=== PATIENT | male | born 1960 | race Hispanic/Latino ===

== ENCOUNTER 2018-08-21 15:44 | Emergency (ER) | payer MEDICARE ==
[~2018-08-21] VITALS: Ht 167.6 cm; Wt 64.0 kg
--- OUTSIDE RECORDS SUMMARY | 2018-08-21 15:48 | XMS REPORT | Clinical Summary ---
Author Author [facility] Address Unknown Phone Unavailable Care Team Providers Care Assurance Associate Name Role Phone Zhao Sanabria PCP Unavailable Ab Richey Unavailable Allergies Comments Active Allergy Reactions Severity Noted Date IV OPTIRAY 320 Iodinated Contrast- Oral Rash Low 10/26/2017 And Iv Dye PT developed hives following the administration of IV Contrast Optiray 320 Ioversol Hives Low 02/28/2017 Medications End Date Status Medication Sig Dispensed Refills Start Date Active SITAGLIPTIN PHOSPHATE Take 100 mg 0 (JANUVIA ORAL) by mouth daily . Active PREGABALIN (LYRICA ORAL) Take 50 mg by 0 mouth 3 (three) times daily . Active tamsulosin (FLOMAX) 0.4 Take 1 60 capsule 0 11/09/ mg Cp24 24 hr capsule capsule (0.4 7 mg total) by mouth 2 (two) times daily. Active metoprolol (LOPRESSOR) Take 1 tablet 0 100 MG tablet (100 mg 9 total) by mouth 2 (two) times daily Hold for sbp < 110 or HR < 55. Active lisinopril Take 10 mg by 0 (PRINIVIL,ZESTRIL) 10 MG mouth daily. tablet 07/24/2019 Active atorvastatin (LIPITOR) 80 Take 1 tablet 60 tablet 0 07/24/201 MG tablet (80 mg total) 9 by mouth nightly. 07/07/2018 Discontinued glyBURIDE-metFORMIN Take 2 0 (GLUCOVANCE) 5-500 mg per tablets by tablet mouth 2 (two) times daily with breakfast and dinner . 07/07/2018 Discontinued ticagrelor (BRILINTA) 90 Take 1 tablet 60 tablet 0 11/09/201 mg Tab tablet (90 mg total) 7 by mouth 2 (two) times daily. 11/09/2017 metoprolol (LOPRESSOR) Take 1 tablet 60 tablet 0 100 MG tablet (100 mg 7 total) by mouth 2 (two) times daily. 11/09/2017 isosorbide mononitrate Take 1 tablet 60 tablet 0 (IMDUR) 60 MG 24 hr (60 mg total) 7 tablet by mouth daily. 11/09/2017 gabapentin (NEURONTIN) Take 1 60 capsule 1 300 MG capsule capsule (300 7 mg total) by mouth nightly. 11/09/2017 furosemide (LASIX) 20 MG Take 1 tablet 20 tablet 0 tablet (20 mg total) 7 by mouth daily. 07/19/2018 Discontinued insulin glargine (LANTUS) Inject 5 0 100 unit/mL injection Units subcutaneousl y 2 (two) times daily Use as directed . 07/07/2018 Discontinued metoprolol (LOPRESSOR) Take 100 mg 0 100 MG tablet by mouth 2 (two) times daily. 07/07/2018 Discontinued lisinopril Take 10 mg by 0 (PRINIVIL,ZESTRIL) 10 MG mouth 2 (two) tablet times daily. 07/19/2018 Discontinued pantoprazole (PROTONIX) Take 40 mg by 0 40 MG tablet mouth 2 (two) times daily. 07/19/2018 Discontinued isosorbide mononitrate Take 60 mg by 0 (IMDUR) 60 MG 24 hr mouth daily. tablet 07/15/2018 levoFLOXacin (LEVAQUIN) Take 1 tablet 7 tablet 0 500 MG tablet (500 mg 9 total) by mouth daily for 7 days. 07/31/2018 nitrofurantoin, Take 1 14 capsule 0 macrocrystal-monohydrate, capsule (100 9 (MACROBID) 100 MG capsule mg total) by mouth 2 (two) times daily for 7 days. 08/12/2018 levoFLOXacin (LEVAQUIN) Take 1 tablet 10 tablet 0 250 MG tablet (250 mg 9 total) by mouth daily for 10 days. Active Problems Problem Noted Date Pneumonia 07/21/2018 Generalized weakness 07/18/2018 Acute renal failure superimposed on stage 3 chronic kidney disease 07/18/2018 Demand ischemia 07/18/2018 Acute diarrhea 07/18/2018 Sepsis 07/18/2018 Hypoglycemia 06/29/2018 Stage 3 chronic kidney disease 06/29/2018 Urinary retention 10/30/2016 History of coronary artery disease 10/30/2016 s/p Aogram abd b/l bolus: Abd Ao: NOD, RLA 80% prox SFA, 100% CHANDNI, tandem 03/27/2016 90% stenoses tib-peroneal, 1V runoff, LLE: 100% distal pop, peroneal, and CHANDNI, 80% distal PT, 1 V runoff, 03/27/16 Overview: RLE: 80% proximal SFA and non obstructive plaque in distal SFA and popliteal, 100% anterior tibial artery, tandem 90% stenoses tib-peroneal, 1 vessel runoff. LLE: mild plaquing proximally, 100% distal popliteal, peroneal and anterior tibialis, 80% distal posterior tibialis, 1 vessel runoff . Type 2 diabetes mellitus with hyperlipidemia 03/22/2016 Essential hypertension 03/22/2016 Diabetic peripheral neuropathy 03/22/2016 History of rectal cancer 03/22/2016 Resolved Problems Problem Noted Date Resolved Date Hyperkalemia 06/29/2018 07/18/2018 Anemia, unspecified type 06/28/2018 07/18/2018 Gangrene of foot 11/23/2016 07/18/2018 Angina at rest 11/04/2016 07/18/2018 Right foot infection 10/30/2016 07/18/2018 Postoperative anemia 10/30/2016 07/18/2018 Arterial occlusion 03/22/2016 07/18/2018 Skin ulcer of great toe, left, limited to breakdown of skin 03/22/2016 07/18/2018 Malignant neoplasm of rectum 11/24/2014 07/18/2018 Rectal cancer 10/12/2014 07/18/2018 Encounters Care Team Description Date Type Specialty Zana Mcgrath MD Visit for wound check (Primary Dx); Malfunction of nephrostomy tube (HCC); Hypertension, unspecified type 08/02/2018 Emergency Emergency Medicine 08/02/2018 Travel Beverley Muñoz MD Gonzalez, Adriana, MD Rehman, Javed, MD Generalized weakness (Primary Dx); Acute renal failure with acute tubular necrosis superimposed on chronic kidney disease, unspecified CKD stage (HCC); Elevated troponin I level; Acute diarrhea; Type 2 diabetes mellitus with hyperlipidemia (HCC); Essential hypertension; Diabetic peripheral neuropathy (HCC); History of rectal cancer; s/p Aogram abd b/l bolus: Abd Ao: NOD, RLA 80% prox SFA, 100% CHANDNI, tandem 90% stenoses tib-peroneal, 1V runoff, LLE: 100% distal pop, peroneal, and CHANDNI, 80% distal PT, 1 V runoff, 03/27/16 07/18/2018 Hospital Cardiology - Encounter 07/24/2018 07/18/2018 Travel Jackson Matthew MD Schempp, MD Waldo Bolden Javed, MD Patel, Morgan Chahal, Mylene Garcia MD Hypoglycemia (Primary Dx); Anemia, unspecified type; FADI (acute kidney injury) (HCC); Hyperkalemia; Pressure injury of skin of sacral region, unspecified injury stage 06/28/2018 Hospital Intensive Care - Encounter 07/07/2018 06/28/2018 Orders Only General Internal Medicine 06/28/2018 Travel Marcelina Morel MD Malignant neoplasm of rectum (HCC) (Primary Dx) 10/26/2017 Orders Only Lab Marcelina Morel MD Malignant neoplasm of rectum (HCC) 10/26/2017 Hospital Radiology Encounter Marcelina Morel MD Malignant neoplasm of rectum (HCC) (Primary Dx) 10/24/2017 Outside Orders Central Scheduling after 08/20/2017 Family History Medical History Relation Name Comments Diabetes Mother Hypertension Mother Stroke Mother Relation Name Status Comments Father Mother Social History Date Tobacco Use Types Packs/Day Years Used Quit: 04/09/1979 Former Smoker 0.5 5 Smokeless Tobacco: Never Used Comments: quit smoking 5 yrs ago. Alcohol Use Drinks/Week oz/Week Comments No Sex Assigned at Date Recorded Not on file Industry Job Start Date Occupation Not on file Not on file Not on file Travel End Travel History Travel Start No recent travel history available. Last Filed Vital Signs Time Taken Vital Sign Reading 08/02/2018 12:27 PM CDT Blood Pressure 121/76 08/02/2018 12:27 PM CDT Pulse 96 08/02/2018 12:27 PM CDT Temperature 36.8 C (98.3 F) 08/02/2018 12:27 PM CDT Respiratory Rate 19 08/02/2018 12:27 PM CDT Oxygen Saturation 98% - Inhaled Oxygen - Concentration 08/02/2018 12:27 PM CDT Weight 68 kg (150 lb) 08/02/2018 12:27 PM CDT Height 167.6 cm (5' 6") 08/02/2018 12:27 PM CDT Body Mass Index 24.21 Plan of Treatment Not on file Implants Device Identifier Shelf Expiration Date Model / Serial / Lot Implanted Type Area Manufactur er 08/06/2017 [id number] / / [id number] Device Clsr Angio-Seal Vip 6fr Cardiovasc Left: Groin ST JOSE [id number] - [id number] ular MED:CARDIA Implanted: Qty: 1 on 10/31/2016 by Magali Apodaca MD 01/06/2017 [id number] / / [id number] Adhesion Barrier,Seprafilm 5x6 - Cement/Terrance N/A: Abdomen GENZYME [id number] ler/Adhesi SURGICAL Implanted: Qty: 2 on 11/24/2014 by ve Bradford Luna MD 09/06/2016 [id number] / / [id number] Hemostat Vitagel Agent Surg - Cement/[place]errance N/A: Abdomen [place] [id number] ler/Adhesi Orthopaedi Implanted: Qty: 1 on 04/13/2015 by Bradford Louis MD 02/14/2017 [id number] / / [id number] Promus Premier Stents-Cor Right: Coronary [place] Implanted: Qty: 1 on 03/29/2016 by Lida Chang MD 02/20/2017 [id number] / / [id number] Promus Premier Stents-Cor N/A: Coronary [place] Implanted: Qty: 1 on 03/29/2016 by Lida Chang MD 02/09/2017 [id number] / / [id number] Promus Premier Stents-Per Right: Coronary [place] Implanted: Qty: 1 on 03/29/2016 by Lida Link MD 12/06/2017 [id number] / / [id number] [employer] Promus Premier Stents-Per [place] Implanted: Qty: 1 on 10/31/2016 by Magali Abrams MD 09/07/2021 [id number] / / [id number] Epifix Injectable 160mg [id number] - Tissue MIMEDX [id number] [employer]raft[employer] Implanted: Qty: 1 on 11/23/2016 by Satish Dupree MD 09/07/2021 [id number] / / [id number] Epifix Injectable 160mg [id number]-5200 - Tissue MIMEDX [id number] [employer]raft[employer] Implanted: Qty: 1 on 11/23/2016 by Satish Dupree MD Procedures Comments Procedure Name Priority Date/Time Associated Diagnosis CREATININE, BODY FLUID DESHAWN 08/02/2018 6:09 PM CDT URINALYSIS W/ REFLEX STAT 08/02/2018 URINE CULTURE 5:01 PM CDT URINE CULTURE STAT 08/02/2018 5:01 PM CDT CBC W/PLT COUNT & AUTO STAT 08/02/2018 DIFFERENTIAL 4:09 PM CDT BASIC METABOLIC PANEL (7) STAT 08/02/2018 4:09 PM CDT CBC W/PLT COUNT & AUTO STAT 08/02/2018 DIFFERENTIAL 4:[address] ABDOMEN/PELVIS WITHOUT STAT 08/02/2018 IV CONTRAST 3:54 PM CDT RHYTHM STRIP - SCAN 07/25/2018 1:31 PM CDT REPORT OF PROCEDURE - 07/25/2018 ENDOSCOPY SCAN 1:31 PM CDT POCT-GLUCOSE METER Routine 07/24/2018 7:36 AM CDT POCT-GLUCOSE METER Routine 07/23/2018 11:52 PM CDT POCT-GLUCOSE METER Routine 07/23/2018 6:01 PM CDT POCT-GLUCOSE METER Routine 07/23/2018 11:59 AM CDT POCT-GLUCOSE METER Routine 07/23/2018 8:04 AM CDT POCT-GLUCOSE METER Routine 07/22/2018 11:07 PM CDT TRANSFUSION SERVICE 07/22/2018 REPORT - SCAN 6:00 PM CDT POCT-GLUCOSE METER Routine 07/22/2018 5:27 PM CDT POCT-GLUCOSE METER Routine 07/22/2018 12:20 PM CDT POCT-GLUCOSE METER Routine 07/22/2018 8:18 AM CDT CBC W/PLT COUNT & AUTO Routine 07/22/2018 DIFFERENTIAL 4:03 AM CDT MAGNESIUM Routine 07/22/2018 4:03 AM CDT CBC W/PLT COUNT & AUTO Routine 07/22/2018 DIFFERENTIAL 4:03 AM CDT BASIC METABOLIC PANEL (7) Routine 07/22/2018 4:03 AM CDT PREPARE LEUKO-REDUCED RBC Routine 07/21/2018 11:54 PM CDT POCT-GLUCOSE METER Routine 07/21/2018 9:23 PM CDT TRANSFUSION SERVICE 07/21/2018 REPORT - SCAN 6:00 PM CDT POCT-GLUCOSE METER Routine 07/21/2018 4:58 PM CDT POCT-GLUCOSE METER Routine 07/21/2018 12:45 PM CDT POCT-GLUCOSE METER Routine 07/21/2018 10:20 AM CDT CBC W/PLT COUNT & AUTO Routine 07/21/2018 DIFFERENTIAL 4:22 AM CDT BASIC METABOLIC PANEL (7) Routine 07/21/2018 4:22 AM CDT CBC W/PLT COUNT & AUTO Routine 07/21/2018 DIFFERENTIAL 4:22 AM CDT MAGNESIUM Routine 07/21/2018 4:22 AM CDT TRANSFUSE LEUKO-REDUCED Routine 07/21/2018 RED BLOOD CELLS 2:55 AM CDT POCT-GLUCOSE METER Routine 07/21/2018 12:25 AM CDT TRANSFUSE LEUKO-REDUCED Routine 07/20/2018 RED BLOOD CELLS 9:36 PM CDT POCT-GLUCOSE METER Routine 07/20/2018 5:51 PM CDT ABORH, MANUAL Routine 07/20/2018 12:30 PM CDT TYPE AND SCREEN, Routine 07/20/2018 AUTOMATED 12:30 PM CDT POCT-GLUCOSE METER Routine 07/20/2018 12:12 PM CDT POCT-GLUCOSE METER Routine 07/20/2018 7:57 AM CDT CBC W/PLT COUNT & AUTO Routine 07/20/2018 DIFFERENTIAL 1:30 AM CDT MAGNESIUM Routine 07/20/2018 1:30 AM CDT BASIC METABOLIC PANEL (7) Routine 07/20/2018 1:30 AM CDT TROPONIN I Routine 07/20/2018 1:30 AM CDT CBC W/PLT COUNT & AUTO Routine 07/20/2018 DIFFERENTIAL 1:30 AM CDT POCT-GLUCOSE METER Routine 07/19/2018 9:13 PM CDT POCT-GLUCOSE METER Routine 07/19/2018 6:56 PM CDT TROPONIN I Routine 07/19/2018 5:18 PM CDT POCT-GLUCOSE METER Routine 07/19/2018 2:29 PM CDT CBC W/PLT COUNT & AUTO Routine 07/19/2018 DIFFERENTIAL 5:48 AM CDT TROPONIN I Routine 07/19/2018 5:48 AM CDT LACTIC ACID, VENOUS Routine 07/19/2018 5:48 AM CDT HEPATIC FUNCTION PANEL Routine 07/19/2018 5:48 AM CDT CBC W/PLT COUNT & AUTO Routine 07/19/2018 DIFFERENTIAL 5:48 AM CDT MAGNESIUM Routine 07/19/2018 5:48 AM CDT PT/APTT Routine 07/19/2018 5:48 AM CDT BASIC METABOLIC PANEL (7) Routine 07/19/2018 5:48 AM CDT POCT-GLUCOSE METER Routine 07/19/2018 2:51 AM CDT TROPONIN I Routine 07/19/2018 12:50 AM CDT POCT-GLUCOSE METER Routine 07/19/2018 12:48 AM CDT POCT-GLUCOSE METER Routine 07/18/2018 10:34 PM CDT POCT-GLUCOSE METER Routine 07/18/2018 10:13 PM CDT URINALYSIS W/ REFLEX STAT 07/18/2018 URINE CULTURE 7:12 PM CDT URINE CULTURE STAT 07/18/2018 7:12 PM CDT POCT-GLUCOSE METER Routine 07/18/2018 5:26 PM CDT ECG 12-LEAD STAT 07/18/2018 5:23 PM CDT XR CHEST 1 VIEW STAT 07/18/2018 PORTABLE/BEDSIDE 5:10 PM CDT POCT-LACTIC ACID, VENOUS Routine 07/18/2018 4:53 PM CDT STOOL PATH CHARGE Routine 07/18/2018 4:44 PM CDT SHIGA TOXIN SCREEN Routine 07/18/2018 4:44 PM CDT OVA AND PARASITE STAT 07/18/2018 EXAMINATION 4:44 PM CDT C. DIFFICILE GDH TOXIN STAT 07/18/2018 4:44 PM CDT STOOL CULTURE + SHIGA STAT 07/18/2018 TOXIN 4:44 PM CDT RAPID INFLUENZA A&B STAT 07/18/2018 SCREEN 4:38 PM CDT BLOOD CULTURE STAT 07/18/2018 4:38 PM CDT RESPIRATORY PANEL SLHS STAT 07/18/2018 4:00 PM CDT BLOOD CULTURE STAT 07/18/2018 4:00 PM CDT CBC W/PLT COUNT & AUTO STAT 07/18/2018 DIFFERENTIAL 3:59 PM CDT CBC W/PLT COUNT & AUTO STAT 07/18/2018 DIFFERENTIAL 3:59 PM CDT PROTHROMBIN TIME/INR STAT 07/18/2018 3:59 PM CDT TROPONIN I STAT 07/18/2018 3:59 PM CDT HEPATIC FUNCTION PANEL STAT 07/18/2018 3:59 PM CDT BASIC METABOLIC PANEL (7) STAT 07/18/2018 3:59 PM CDT PROCALCITONIN STAT 07/18/2018 3:59 PM CDT POCT-GLUCOSE METER Routine 07/18/2018 3:50 PM CDT ED ECG INTERPRETATION Routine 07/18/2018 3:30 PM CDT POCT-GLUCOSE METER Routine 07/18/2018 3:20 PM CDT REPORT OF PROCEDURE - 07/12/2018 ENDOSCOPY SCAN 2:24 PM CDT RHYTHM STRIP - SCAN 07/09/2018 10:40 AM CDT POCT-GLUCOSE METER Routine 07/07/2018 12:16 PM CDT POCT-GLUCOSE METER Routine 07/07/2018 7:54 AM CDT CBC W/PLT COUNT & AUTO Routine 07/07/2018 DIFFERENTIAL 5:44 AM CDT CBC W/PLT COUNT & AUTO Routine 07/07/2018 DIFFERENTIAL 5:44 AM CDT MAGNESIUM Routine 07/07/2018 5:44 AM CDT BASIC METABOLIC PANEL (7) Routine 07/07/2018 5:44 AM CDT POCT-GLUCOSE METER Routine 07/06/2018 9:48 PM CDT POCT-GLUCOSE METER Routine 07/06/2018 5:53 PM CDT POCT-GLUCOSE METER Routine 07/06/2018 12:28 PM CDT RHYTHM STRIP - SCAN 07/06/2018 8:50 AM CDT CBC W/PLT COUNT & AUTO Routine 07/06/2018 DIFFERENTIAL 4:03 AM CDT CBC W/PLT COUNT & AUTO Routine 07/06/2018 DIFFERENTIAL 4:03 AM CDT MAGNESIUM Routine 07/06/2018 4:03 AM CDT BASIC METABOLIC PANEL (7) Routine 07/06/2018 4:03 AM CDT POCT-GLUCOSE METER Routine 07/05/2018 9:33 PM CDT HEMOGLOBIN AND HEMATOCRIT Routine 07/05/2018 8:02 PM CDT POCT-GLUCOSE METER Routine 07/05/2018 4:51 PM CDT POCT-GLUCOSE METER Routine 07/05/2018 12:24 PM CDT BLOOD CULTURE Routine 07/05/2018 11:51 AM CDT BLOOD CULTURE Routine 07/05/2018 11:44 AM CDT IR NEPHROSTOGRAM AND/OR DESHAWN 07/05/2018 URETEROGRAM THROUGH 10:12 AM CDT EXISTING ACCESS CBC W/PLT COUNT & AUTO Routine 07/05/2018 DIFFERENTIAL 4:21 AM CDT LACTIC ACID, VENOUS Routine 07/05/2018 4:21 AM CDT CBC W/PLT COUNT & AUTO Routine 07/05/2018 DIFFERENTIAL 4:21 AM CDT MAGNESIUM Routine 07/05/2018 4:21 AM CDT BASIC METABOLIC PANEL (7) Routine 07/05/2018 4:21 AM CDT POCT-GLUCOSE METER Routine 07/04/2018 9:26 PM CDT ECHOCARDIOGRAM REPORT - 07/04/2018 SCAN 9:13 PM CDT POCT-GLUCOSE METER Routine 07/04/2018 6:18 PM CDT TRANSFUSION SERVICE 07/04/2018 REPORT - SCAN 6:04 PM CDT TROPONIN I Routine 07/04/2018 11:46 AM CDT POCT-GLUCOSE METER Routine 07/04/2018 11:30 AM CDT POCT-GLUCOSE METER Routine 07/04/2018 8:14 AM CDT MAGNESIUM Routine 07/04/2018 8:01 AM CDT BASIC METABOLIC PANEL (7) Routine 07/04/2018 8:01 AM CDT TROPONIN I Routine 07/04/2018 5:04 AM CDT 2D ECHO W/ DOPPLER STAT 07/04/2018 (CW/PW/COLOR) 1:41 AM CDT CBC W/PLT COUNT & AUTO Routine 07/04/2018 DIFFERENTIAL 1:12 AM CDT LACTIC ACID, VENOUS STAT 07/04/2018 1:12 AM CDT CBC W/PLT COUNT & AUTO Routine 07/04/2018 DIFFERENTIAL 1:12 AM CDT MAGNESIUM Routine 07/04/2018 1:12 AM CDT BASIC METABOLIC PANEL (7) Routine 07/04/2018 1:12 AM CDT CBC W/PLT COUNT & AUTO STAT 07/04/2018 DIFFERENTIAL 12:32 AM CDT TROPONIN I STAT 07/04/2018 12:32 AM CDT CBC W/PLT COUNT & AUTO STAT 07/04/2018 DIFFERENTIAL 12:32 AM CDT MAGNESIUM STAT 07/04/2018 12:32 AM CDT BASIC METABOLIC PANEL (7) STAT 07/04/2018 12:32 AM CDT PROCALCITONIN STAT 07/04/2018 12:32 AM CDT LACTIC ACID, VENOUS STAT 07/04/2018 12:32 AM CDT URINALYSIS W/ REFLEX Routine 07/04/2018 URINE CULTURE 12:32 AM CDT URINE CULTURE Routine 07/04/2018 12:32 AM CDT XR CHEST 1 VIEW STAT 07/04/2018 PORTABLE/BEDSIDE 12:31 AM CDT ECG 12-LEAD Routine 07/04/2018 12:24 AM CDT ECG 12-LEAD Routine 07/04/2018 12:24 AM CDT Procedure Note - Interface, External Ris In - 07/04/2018 12:28 AM CDT Ventricula r Rate 119 BPM Atrial Rate 119 BPM P-R Interval 162 ms QRS Duration 134 ms Q-T Interval 338 ms QTC Calculatio n(Bazett) 475 ms P [place] 44 degrees R [place] 215 degrees T [place] 32 degrees Sinus tachycardi a Possible Left atrial enlargemen t Right bundle branch block Anterior infarct (cited on or before 9) Abnormal ECG When compared with ECG of 09:50, Premature ventricula r complexes are no longer Present Right bundle branch block is now Present Criteria for Inferior infarct are no longer Present Questionab le change in initial forces of Anterior leads BLOOD CULTURE Routine 07/03/2018 IDENTIFICATION PANEL 11:58 PM CDT BLOOD CULTURE Routine 07/03/2018 11:58 PM CDT PREPARE RBC Routine 07/03/2018 11:54 PM CDT POCT-LACTIC ACID, VENOUS Routine 07/03/2018 11:51 PM CDT BLOOD CULTURE Routine 07/03/2018 11:51 PM CDT POCT-GLUCOSE METER Routine 07/03/2018 11:18 PM CDT POCT-GLUCOSE METER Routine 07/03/2018 9:09 PM CDT TRANSFUSION SERVICE 07/03/2018 REPORT - SCAN 5:55 PM CDT POCT-GLUCOSE METER Routine 07/03/2018 5:06 PM CDT C. DIFFICILE GDH TOXIN Routine 07/03/2018 4:55 PM CDT REPORT OF PROCEDURE - 07/03/2018 ENDOSCOPY SCAN 4:20 PM CDT POCT-GLUCOSE METER Routine 07/03/2018 11:37 AM CDT ECG 12-LEAD Routine 07/03/2018 9:50 AM CDT Procedure Note - Interface, External Ris In - 07/03/2018 9:53 AM CDT Ventricula r Rate 95 BPM Atrial Rate 95 BPM P-R Interval 182 ms QRS Duration 96 ms Q-T Interval 372 ms QTC Calculatio n(Bazett) 467 ms P [place] 38 degrees R [place] 49 degrees T [place] 125 degrees Sinus rhythm with occasional Premature ventricula r complexes Inferior infarct , age undetermin ed Cannot rule out Anterior infarct , age undetermin ed ST & T wave abnormalit y, consider lateral ischemia Abnormal ECG When compared with ECG of 9 21:52, Sinus rhythm has replaced Wide QRS tachycardi a ECG 12-LEAD Routine 07/03/2018 9:50 AM CDT POCT-GLUCOSE METER Routine 07/03/2018 8:07 AM CDT CBC W/PLT COUNT & AUTO Routine 07/03/2018 DIFFERENTIAL 5:20 AM CDT CBC W/PLT COUNT & AUTO Routine 07/03/2018 DIFFERENTIAL 5:20 AM CDT MAGNESIUM Routine 07/03/2018 5:20 AM CDT BASIC METABOLIC PANEL (7) Routine 07/03/2018 5:20 AM CDT POCT-GLUCOSE METER Routine 07/02/2018 9:20 PM CDT TRANSFUSE LEUKO-REDUCED Routine 07/02/2018 RED BLOOD CELLS 8:51 PM CDT PREPARE LEUKO-REDUCED RBC Routine 07/02/2018 5:15 PM CDT POCT-GLUCOSE METER Routine 07/02/2018 5:14 PM CDT TYPE AND SCREEN, Routine 07/02/2018 AUTOMATED 3:39 PM CDT POCT-GLUCOSE METER Routine 07/02/2018 11:41 AM CDT POCT-GLUCOSE METER Routine 07/02/2018 8:21 AM CDT VITAMIN B12 Routine 07/02/2018 5:21 AM CDT FOLATE, SERUM Routine 07/02/2018 5:21 AM CDT IRON, TIBC, % SAT. Routine 07/02/2018 (WITHOUT FERRITIN) 5:21 AM CDT FERRITIN Routine 07/02/2018 5:21 AM CDT MAGNESIUM Routine 07/02/2018 5:21 AM CDT BASIC METABOLIC PANEL (7) Routine 07/02/2018 5:21 AM CDT CBC (HEMOGRAM ONLY) Routine 07/02/2018 5:21 AM CDT POTASSIUM Routine 07/02/2018 5:21 AM CDT MAGNESIUM Routine 07/01/2018 10:57 PM CDT POTASSIUM Routine 07/01/2018 10:57 PM CDT ECG 12-LEAD STAT 07/01/2018 9:52 PM CDT POCT-GLUCOSE METER Routine 07/01/2018 8:29 PM CDT URINALYSIS W/ MICROSCOPIC Routine 07/01/2018 5:26 PM CDT POTASSIUM Routine 07/01/2018 5:25 PM CDT POTASSIUM Routine 07/01/2018 12:54 PM CDT POCT-GLUCOSE METER Routine 07/01/2018 12:11 PM CDT POCT-GLUCOSE METER Routine 07/01/2018 8:39 AM CDT POTASSIUM Routine 07/01/2018 8:12 AM CDT POCT-GLUCOSE METER Routine 07/01/2018 8:05 AM CDT POCT-GLUCOSE METER Routine 07/01/2018 4:22 AM CDT CBC (HEMOGRAM ONLY) Routine 07/01/2018 4:10 AM CDT PHOSPHORUS Routine 07/01/2018 4:10 AM CDT MAGNESIUM Routine 07/01/2018 4:10 AM CDT BASIC METABOLIC PANEL (7) Routine 07/01/2018 4:10 AM CDT POTASSIUM Routine 07/01/2018 12:15 AM CDT POCT-GLUCOSE METER Routine 06/30/2018 11:59 PM CDT US RENAL COMPLETE Routine 06/30/2018 11:00 PM CDT POCT-GLUCOSE METER Routine 06/30/2018 8:01 PM CDT POTASSIUM Routine 06/30/2018 7:54 PM CDT POCT-GLUCOSE METER Routine 06/30/2018 4:33 PM CDT POTASSIUM Routine 06/30/2018 4:33 PM CDT POTASSIUM Routine 06/30/2018 1:29 PM CDT POCT-GLUCOSE METER Routine 06/30/2018 1:24 PM CDT POCT-GLUCOSE METER Routine 06/30/2018 11:38 AM CDT POCT-GLUCOSE METER Routine 06/30/2018 9:52 AM CDT POTASSIUM Routine 06/30/2018 9:47 AM CDT TROPONIN I Routine 06/30/2018 7:46 AM CDT POTASSIUM Routine 06/30/2018 7:46 AM CDT POCT-GLUCOSE METER Routine 06/30/2018 6:14 AM CDT CBC (HEMOGRAM ONLY) Routine 06/30/2018 5:21 AM CDT PHOSPHORUS Routine 06/30/2018 5:21 AM CDT MAGNESIUM Routine 06/30/2018 5:21 AM CDT BASIC METABOLIC PANEL (7) Routine 06/30/2018 5:21 AM CDT HEMODIALYSIS INPATIENT Routine 06/30/2018 4:28 AM CDT FERRITIN Routine 06/30/2018 3:47 AM CDT IRON, TIBC, % SAT. Routine 06/30/2018 (WITHOUT FERRITIN) 3:47 AM CDT POCT-GLUCOSE METER Routine 06/30/2018 3:21 AM CDT POCT-GLUCOSE METER Routine 06/30/2018 1:58 AM CDT POCT-GLUCOSE METER Routine 06/29/2018 11:16 PM CDT POTASSIUM Routine 06/29/2018 10:45 PM CDT CREATININE, RANDOM URINE Routine 06/29/2018 10:44 PM CDT SODIUM, RANDOM URINE Routine 06/29/2018 10:44 PM CDT POCT-GLUCOSE METER Routine 06/29/2018 9:47 PM CDT XR CHEST 1 VIEW STAT 06/29/2018 PORTABLE/BEDSIDE 9:39 PM CDT POTASSIUM Routine 06/29/2018 7:58 PM CDT POCT-GLUCOSE METER Routine 06/29/2018 5:33 PM CDT CREATINE KINASE (CK) Routine 06/29/2018 5:26 PM CDT LACTATE DEHYDROGENASE Routine 06/29/2018 (LDH) 5:26 PM CDT HEPATITIS B SURFACE STAT 06/29/2018 ANTIGEN 5:26 PM CDT ECG 12-LEAD STAT 06/29/2018 5:20 PM CDT MISCELLANEOUS LAB ORDER Routine 06/29/2018 4:25 PM CDT POTASSIUM Routine 06/29/2018 3:30 PM CDT POTASSIUM Routine 06/29/2018 1:46 PM CDT TROPONIN I Routine 06/29/2018 1:46 PM CDT POCT-GLUCOSE METER Routine 06/29/2018 9:43 AM CDT POTASSIUM STAT 06/29/2018 9:40 AM CDT POCT-GLUCOSE METER Routine 06/29/2018 6:41 AM CDT TROPONIN I Routine 06/29/2018 5:05 AM CDT PHOSPHORUS Routine 06/29/2018 5:05 AM CDT MAGNESIUM Routine 06/29/2018 5:05 AM CDT BASIC METABOLIC PANEL (7) Routine 06/29/2018 5:05 AM CDT POCT-GLUCOSE METER Routine 06/29/2018 4:44 AM CDT POCT-GLUCOSE METER Routine 06/29/2018 4:04 AM CDT POCT-GLUCOSE METER Routine 06/28/2018 11:12 PM CDT ECG 12-LEAD Routine 06/28/2018 10:24 PM CDT Procedure Note - Interface, External Ris In - 06/28/2018 10:34 PM CDT Ventricula r Rate 115 BPM Atrial Rate 115 BPM P-R Interval 172 ms QRS Duration 96 ms Q-T Interval 318 ms QTC Calculatio n([place]) 439 ms P [place] 60 degrees R [place] 87 degrees T [place] 103 degrees Sinus tachycardi a with Fusion complexes Cannot rule out Anterior infarct , age undetermin ed Abnormal ECG When compared with ECG of 7 12:21, Fusion complexes are now Present Minimal criteria for Anterior infarct are now Present Criteria for Inferior infarct are no longer Present T wave inversion no longer evident in Inferior leads ECG 12-LEAD STAT 06/28/2018 10:24 PM CDT XR CHEST 2 VIEWS STAT 06/28/2018 9:42 PM CDT POCT-GLUCOSE METER Routine 06/28/2018 7:26 PM CDT POCT-GLUCOSE METER Routine 06/28/2018 6:20 PM CDT POCT-GLUCOSE METER Routine 06/28/2018 5:12 PM CDT CBC W/PLT COUNT & AUTO STAT 06/28/2018 DIFFERENTIAL 4:34 PM CDT CBC W/PLT COUNT & AUTO STAT 06/28/2018 DIFFERENTIAL 4:34 PM CDT BASIC METABOLIC PANEL (7) STAT 06/28/2018 4:34 PM CDT POCT-GLUCOSE METER Routine 06/28/2018 4:30 PM CDT POCT-GLUCOSE METER Routine 06/28/2018 1:12 PM CDT POCT-GLUCOSE METER Routine 06/28/2018 11:31 AM CDT IR CV ACCESS FLUORO Routine 10/26/2017 Malignant neoplasm of 9:11 AM CDT rectum (HCC) PLATELET COUNT STAT 10/26/2017 Malignant neoplasm of 6:28 AM CDT rectum (HCC) PT/APTT STAT 10/26/2017 Malignant neoplasm of 6:28 AM CDT rectum (HCC) after 08/20/2017 Results * Creatinine, body fluid (08/02/2018 6:09 PM CDT) Creat, Fluid >37.00 mg/dL [facility] Specimen Body Fluid Narrative Performed At Reference Range:No Normals [facility] Assay performance has not been validated for this type of specimen. [facility] Please place ostomy bag over draining left flank wound and collect fluid until sufficient to send for Cr analysis. Thanks. Performing Organization Address City/State/Zipcode Phone Number [facility] [address] [place] [address] [facility] * Urinalysis w/Microscopic + Reflex to Culture (08/02/2018 5:01 PM CDT) Only the most recent of 3 results within the time period is included. Color, UA Yellow [facility] Clarity, UA Cloudy [facility] Specific [place], UA 1.017 1.001 - 1.035 [facility] pH, UA 7.0 5.0 - 8.0 [facility] Protein, UA 300 mg/dL (A) Negative [facility] Glucose, UA 70 mg/dL (A) Negative [facility] Ketones, UA Negative Negative [facility] Bilirubin, UA Negative Negative [facility] Blood, UA Moderate (A) Negative [facility] Nitrite, UA Negative Negative [facility] Leukocytes, UA Large (A) Negative [facility] Urobilinogen, UA 0.2 0.2 - 1.0 mg/dL [facility] RBC, UA 0 /HPF [facility] WBC, UA 1,216 /HPF [facility] Bacteria, UA Rare [facility] Mucus Occasional [facility] Squam Epithel, UA 2 /HPF [facility] Casts 18 /LPF [facility] Specimen Source [facility] Specimen Urine Performing Organization Address City/State/Zipcode Phone Number [facility] [address] [place] [address] [facility] * Urine culture (08/02/2018 5:01 PM CDT) Only the most recent of 3 results within the time period is included. Result PSEUDOMONAS AERUGINOSA (A) [facility] Result ERIC GLABRATA (A) [facility] Specimen Urine Antibiotic Method Susceptibility Organism Amikacin <=8: Susceptible Pseudomonas aeruginosa Aztreonam >16: Resistant Pseudomonas aeruginosa Cefepime 16: Resistant Pseudomonas aeruginosa Ceftazidime 16: Resistant Pseudomonas aeruginosa Ciprofloxacin 1: Resistant Pseudomonas aeruginosa Gentamicin >8: Resistant Pseudomonas aeruginosa Levofloxacin 4: Resistant Pseudomonas aeruginosa Meropenem 8: Resistant Pseudomonas aeruginosa Piperacillin 64: Resistant Pseudomonas aeruginosa Piperacillin + Tazobactam 64: Resistant Pseudomonas aeruginosa Tobramycin >8: Resistant Pseudomonas aeruginosa Performing Organization Address City/State/Zipcode Phone Number [facility] [address] [place] [address] [facility] * CBC with platelet count + automated diff (08/02/2018 4:09 PM CDT) Only the most recent of 13 results within the time period is included. WBC 12.6 (H) 3.5 - 10.5 K/L [facility] RBC 4.30 (L) 4.63 - 6.08 M/L [facility] Hemoglobin 11.0 (L) 13.7 - 17.5 GM/DL [facility] Hematocrit 36.9 (L) 40.1 - 51.0 % [facility] MCV 85.8 79.0 - 92.2 fL [facility] MCH 25.6 (L) 25.7 - 32.2 pg [facility] MCHC 29.8 (L) 32.3 - 36.5 GM/DL [facility] RDW 16.4 (H) 11.6 - 14.4 % [facility] Platelets 491 (H) 150 - 450 K/CU MM [facility] MPV 9.6 9.4 - 12.4 fL [facility] nRBC 0 0 - 0 /100 WBC [facility] % Neutros 82 % [facility] % Lymphs 9 % [facility] % Monos 6 % [facility] % Eos 2 % [facility] % Baso 1 % [facility] # Neutros 10.33 (H) 1.78 - 5.38 K/L [facility] # Lymphs 1.13 (L) 1.32 - 3.57 K/L [facility] # Monos 0.76 0.30 - 0.82 K/L [facility] # Eos 0.24 0.04 - 0.54 K/L [facility] # Baso 0.06 0.01 - 0.08 K/L [facility] Immature 1 0 - 1 % [facility] Granulocytes-Relative [facility] Specimen Blood Performing Organization Address City/[facility]/Zipcode Phone Number [facility] [address] [place] [address] [facility] * Basic Metabolic Panel (08/02/2018 4:09 PM CDT) Only the most recent of 18 results within the time period is included. Sodium 136 136 - 145 meq/L [facility] Potassium 4.6 3.5 - 5.1 meq/L [facility] Chloride 111 (H) 98 - 107 meq/L [facility] CO2 17 (L) 22 - 29 meq/L [facility] BUN 25 (H) 7 - 21 mg/dL [facility] Creatinine 1.92 (H) 0.57 - 1.25 mg/dL [facility] Glucose 202 (H) 70 - 105 mg/dL [facility] Calcium 9.0 8.4 - 10.2 mg/dL [facility] EGFR 36Comment: ESTIMATED GFR IS mL/min/1.73 sq m [facility] NOT ACCURATE CREATININE [facility] CLEARANCE IN PREDICTING GLOMERULAR FILTRATION RATE. ESTIMATED GFR IS NOT APPLICABLE FOR DIALYSIS PATIENTS. Specimen Blood Performing Organization Address City/State/Zipcode Phone Number [facility] [address] [place] [address] MED[facility]ENTER * CT abdomen pelvis without contrast (08/02/2018 3:54 PM CDT) Specimen Narrative Performed At FINAL REPORT [employer] TECHNIQUE: CT of the abdomen and pelvis WITHOUT intravenous contrast and WITHOUT oral contrast. Dose modulation, iterative reconstruction, and/or weight-based adjustment of the mA/kV was utilized to reduce the radiation dose to as low as reasonably achievable. INDICATION: 58-year-old man with drainage from prior left percutaneous nephrostomy site. COMPARISON: Abdomen and pelvis CT 06/17/2013. FINDINGS: ABSENCE OF INTRAVENOUS CONTRAST DECREASES SENSITIVITY FOR DETECTION OF FOCAL LESIONS AND VASCULAR PATHOLOGY. LOWER THORAX: Trace bilateral pleural effusions. Atherosclerotic coronary artery calcifications. HEPATOBILIARY: No focal hepatic lesions. The gallbladder is contracted, limiting its evaluation. No biliary ductal dilatation. SPLEEN: No splenomegaly. PANCREAS: No focal masses or ductal dilatation. ADRENALS: No adrenal nodules. KIDNEYS/URETERS: Mild bilateral hydronephrosis. No stones or definite solid mass lesions. Vascular calcifications in both renal sinuses. Nonspecific mild bilateral perinephric stranding. Tract from prior left nephrostomy tube is visualized extending from the posterior left kidney to the skin surface on the left back. There is mild fat stranding around the tract, which appears to contain a trace amount of fluid. PELVIC ORGANS/BLADDER: The bladder is underdistended, limiting its evaluation. Prostate and seminal vesicles are grossly unremarkable. PERITONEUM/RETROPERITONEUM: No free air or fluid. Presacral soft tissue stranding, likely related to prior treatment. Asymmetric soft tissue density in the left pelvis adjacent to the colorectal anastomosis (for example, axial series image 67). LYMPH NODES: Multiple mildly prominent retroperitoneal lymph nodes measure up to 1.2 cm. VESSELS: Atherosclerotic vascular calcifications in the abdominal aorta and branch vessels without aneurysm. GI TRACT: Ostomies in the right and left abdomen. No distention or wall thickening. BONES AND SOFT TISSUES: Degenerative changes of the visualized spine. Soft tissues are unremarkable. IMPRESSION: Tract from prior nephrostomy tube extending from the left kidney to the skin surface of the left back appears to contain trace amount of fluid. Stranding around the tract is suggestive of inflammation. Mild bilateral hydronephrosis. Asymmetric soft tissue density in the left pelvis adjacent to the colorectal anastomosis may represent posttreatment change. Recurrent tumor cannot be excluded. Indeterminate mildly prominent retroperitoneal lymph nodes. Signed: Gris Ulloa MD Report Verified Date/Time:08/02/2018 16:44:39 Reading Location: [facility] C013Y CT Body Reading Room Procedure Note Interface, External Ris In - 08/02/2018 4:46 PM CDT FINAL REPORT TECHNIQUE: CT of the abdomen and pelvis WITHOUT intravenous contrast and WITHOUT oral contrast. Dose modulation, iterative reconstruction, and/or weight-based adjustment of the mA/kV was utilized to reduce the radiation dose to as low as reasonably achievable. INDICATION: 58-year-old man with drainage from prior left percutaneous nephrostomy site. COMPARISON: Abdomen and pelvis CT 06/17/2013. FINDINGS: ABSENCE OF INTRAVENOUS CONTRAST DECREASES SENSITIVITY FOR DETECTION OF FOCAL LESIONS AND VASCULAR PATHOLOGY. LOWER THORAX: Trace bilateral pleural effusions. Atherosclerotic coronary artery calcifications. HEPATOBILIARY: No focal hepatic lesions. The gallbladder is contracted, limiting its evaluation. No biliary ductal dilatation. SPLEEN: No splenomegaly. PANCREAS: No focal masses or ductal dilatation. ADRENALS: No adrenal nodules. KIDNEYS/URETERS: Mild bilateral hydronephrosis. No stones or definite solid mass lesions. Vascular calcifications in both renal sinuses. Nonspecific mild bilateral perinephric stranding. Tract from prior left nephrostomy tube is visualized extending from the posterior left kidney to the skin surface on the left back. There is mild fat stranding around the tract, which appears to contain a trace amount of fluid. PELVIC ORGANS/BLADDER: The bladder is underdistended, limiting its evaluation. Prostate and seminal vesicles are grossly unremarkable. PERITONEUM/RETROPERITONEUM: No free air or fluid. Presacral soft tissue stranding, likely related to prior treatment. Asymmetric soft tissue density in the left pelvis adjacent to the colorectal anastomosis (for example, axial series image 67). LYMPH NODES: Multiple mildly prominent retroperitoneal lymph nodes measure up to 1.2 cm. VESSELS: Atherosclerotic vascular calcifications in the abdominal aorta and branch vessels without aneurysm. GI TRACT: Ostomies in the right and left abdomen. No distention or wall thickening. BONES AND SOFT TISSUES: Degenerative changes of the visualized spine. Soft tissues are unremarkable. IMPRESSION: Tract from prior nephrostomy tube extending from the left kidney to the skin surface of the left back appears to contain trace amount of fluid. Stranding around the tract is suggestive of inflammation. Mild bilateral hydronephrosis. Asymmetric soft tissue density in the left pelvis adjacent to the colorectal anastomosis may represent posttreatment change. Recurrent tumor cannot be excluded. Indeterminate mildly prominent retroperitoneal lymph nodes. Signed: Gris Ulloa MD Report Verified Date/Time: 08/02/2018 16:44:39 Reading Location: [facility] C013Y CT Body Reading Room Performing Organization Address City/State/[facility] Phone Number [facility] * RHYTHM STRIP - SCAN (07/25/2018 1:31 PM CDT) Only the most recent of 3 results within the time period is included. Narrative Performed At * EKG-SCANNED (07/25/2018 1:31 PM CDT) Only the most recent of 3 results within the time period is included. Narrative Performed At * POC-Glucose meter (07/24/2018 7:36 AM CDT) Only the most recent of 76 results within the time period is included. POC-Glucose Meter 186 (H)Comment: TESTED AT 70 - 110 mg/dL [address] [address] Specimen Blood Performing Organization Address [facility] Phone Number [address] [id number] [phone] [facility] * TRANSFUSION SERVICE REPORT - SCAN (07/22/2018 6:00 PM CDT) Only the most recent of 4 results within the time period is included. Narrative Performed At * Magnesium (07/22/2018 4:03 AM CDT) Only the most recent of 16 results within the time period is included. Magnesium 1.4 (L) 1.6 - 2.6 mg/dL [facility] Specimen Blood Performing Organization Address [facility] Phone Number [address] [address] [facility] * Prepare Leuko-Red RBC (07/21/2018 11:54 PM CDT) Only the most recent of 2 results within the time period is included. Unit ABO B Pos [place]AFET[place]ACE [place] UNIT NUMBER [id number] SAFETRACE TX Status TX_TIMEINCHART SAFET[place]ACE [place] Blood Bank Product RED BLOOD CELLS SAFETRACE TX PRODUCT CODE [id number] SAFETRACE TX Unit ABO B Pos SAFETRACE TX UNIT NUMBER [id number] SAFETRACE TX Status TX_TIMEINCHART SAFETRACE TX Blood Bank Product RED BLOOD CELLS SAFETRACE TX PRODUCT CODE [id number] SAFETRACE TX CROSSMATCH COMPATIBLE SAFETRACE TX CROSSMATCH COMPATIBLE SAFETRACE TX Specimen Other Performing Organization Address [facility] Phone Number [place] * Transfuse Leuko-Red RBC (07/21/2018 2:55 AM CDT) Only the most recent of 5 results within the time period is included. * Type and screen, automated (07/20/2018 12:30 PM CDT) Only the most recent of 2 results within the time period is included. Ab Scrn NEGATIVE [facility] Specimen Blood Performing Organization Address [facility] Phone Number [address] [address] [facility] * ABORH, manual (07/20/2018 12:30 PM CDT) ABO Grouping B [facility] Rh Factor POS [facility] Specimen Blood Performing Organization Address [facility] Phone Number [address] [address] [place] [place] * Troponin I (07/20/2018 1:30 AM CDT) Only the most recent of 11 results within the time period is included. Troponin I 0.19 (H) 0.00 - 0.03 ng/mL [facility] Specimen Blood Narrative Performed At Troponin I (TnI) levels must be interpreted in the context of the presenting [facility] symptoms and the clinical findings. Elevated TnI levels indicate myocardial [facility] damage, but are not specific for ischemic heart disease. Elevated TnI levels are seen in patients with other cardiac conditions (including myocarditis and congestive heart failure), and slight TnI elevations occur in patients with other conditions, including sepsis, renal failure, acidosis, acute neurological disease, and persistent tachyarrhythmia. Performing Organization Address City/[facility] Phone Number [address] [address] [phone] [place] [address] * PT/aPTT (07/19/2018 5:48 AM CDT) Only the most recent of 2 results within the time period is included. Protime 16.8 (H) 11.7 - 14.7 seconds [facility] INR 1.4 <=5.9 [facility] PTT 28.5 22.5 - 36.0 seconds [facility] Specimen Blood Narrative Performed At RECOMMENDED COUMADIN/WARFARIN INR THERAPY RANGES [facility] STANDARD DOSE: 2.0 - 3.0 Includes: PROPHYLAXIS for venous thrombosis, [facility] systemic embolization; TREATMENT for venous thrombosis and/or pulmonary embolus. HIGH RISK: Target INR is 2.5-3.5 for patients with mechanical heart valves. Performing Organization Address [facility] [place] [address] [phone] [place] [address] * Lactic acid, venous (07/19/2018 5:48 AM CDT) Only the most recent of 4 results within the time period is included. Lactate, Venous 1.5Comment: Specimen 0.5 - 2.2 mmol/L [facility] moderately hemolyzed [facility] Specimen Blood Performing Organization Address [facility] [place] [address] [phone] [place] [address] * Hepatic function panel (07/19/2018 5:48 AM CDT) Only the most recent of 2 results within the time period is included. Protein, Total 8.5 (H) 6.0 - 8.3 gm/dL [facility] Albumin 3.2 (L) 3.5 - 5.0 g/dL [facility] Total Bilirubin 0.5 0.2 - 1.2 mg/dL [facility] Bilirubin, Direct 0.3 0.1 - 0.5 mg/dL [facility] Alkaline Phosphatase 87 40 - 150 U/L [facility] AST 26 5 - 34 U/L [facility] ALT 9 6 - 55 U/L [facility] Specimen Blood Performing Organization Address City/[facility]/Zipcode Phone Number [facility] [address] [place] [address] [facility] * ECG 12 lead (07/18/2018 5:23 PM CDT) Only the most recent of 6 results within the time period is included. Specimen Narrative Performed At Ventricular Rate 94 BPM GE MUSE Atrial Rate 94 BPM P-R Interval 194 ms QRS Duration 104 ms Q-T Interval 378 ms QTC Calculation(Bazett) 472 ms P [place] 46 degrees R [place] 83 degrees T [place] 134 degrees Normal sinus rhythm Poor R wave progression ST & T wave abnormality, consider lateral ischemia Abnormal ECG Confirmed by MD BAIG JORGE ([id number]) on 07/19/2018 2:35:22 PM Procedure Note Interface, External Ris In - 07/19/2018 2:35 PM CDT Ventricular Rate 94 BPM Atrial Rate 94 BPM P-R Interval 194 ms QRS Duration 104 ms Q-T Interval 378 ms QTC Calculation(Bazett) 472 ms P [place] 46 degrees R [place] 83 degrees T [place] 134 degrees Normal sinus rhythm Poor R wave progression ST & T wave abnormality, consider lateral ischemia Abnormal ECG Confirmed by MD BAIG JORGE ([id number]) on 07/19/2018 2:35:22 PM Performing Organization Address City/[facility] Phone Number [email or web address] * XR chest 1 view portable / bedside (07/18/2018 5:10 PM CDT) Only the most recent of 3 results within the time period is included. Specimen Narrative Performed At FINAL REPORT GE [facility]IDDIX AP chest HISTORY: Fever COMPARISON: 07/04/2017, 06/29/2017 IMPRESSION: Right chest port. Heart size upper limits of normal. Left lung clear. Faint opacity in the right lung base concerning for pneumonia or asymmetric edema. No effusion or pneumothorax. Signed: Vinod Hall MD Report Verified Date/Time:07/18/2018 17:18:20 Reading Location: [address] Radiology Reading Room Procedure Note Interface, External Ris In - 07/18/2018 5:20 PM CDT FINAL REPORT AP chest HISTORY: Fever COMPARISON: 07/04/2017, 06/29/2017 IMPRESSION: Right chest port. Heart size upper limits of normal. Left lung clear. Faint opacity in the right lung base concerning for pneumonia or asymmetric edema. No effusion or pneumothorax. Signed: Vinod Hall MD Report Verified Date/Time: 07/18/2018 17:18:20 Reading Location: [address] Radiology Reading Room Performing Organization Address City/[facility] Phone Number [facility] * POC-Lactic Acid, Venous (07/18/2018 4:53 PM CDT) Only the most recent of 2 results within the time period is included. POC-Lactic Acid, Venous 2.0 (H)Comment: TESTED AT 0.9 - 1.7 mmol/L [address] [address] Specimen Blood Performing Organization Address City/[facility]/Zipcode Phone Number [address] [address] [facility] * Clostridium difficile GDH Toxin (07/18/2018 4:44 PM CDT) Only the most recent of 2 results within the time period is included. C. Difficle Toxin Negative Negative [facility] C. Difficile GDH Antigen NegativeComment: No indication Negative [facility] of Clostridium difficile [facility] infection and no colonization. Discontinue enteric isolation and therapy. Specimen Stool Narrative Performed At Testing performed by [employer] Rapid Cassette Assay.For GDH, published [facility] sensitivity of the assay is 98.7% compared to cytotoxicity testing.For Toxin [facility] AB, published sensitivity is 87.8% and specificity 99.4% compared to cytotoxicity testing. Verification of kit performance was done by the [facility] Microbiology Lab prior to clinical use. Performing Organization Address City/[facility]/Zipcode Phone Number [address] * STOOL PATH CHARGE (07/18/2018 4:44 PM CDT) Pathogen exam charged Done [facility] Specimen Stool Performing Organization Address [facility] Phone Number [address] * Shiga Toxin Screen (07/18/2018 4:44 PM CDT) Shiga toxin 1 Not detected Not detected [facility] Shiga toxin 2 Not detected Not detected [facility] Specimen Stool Performing Organization Address City/[facility] Phone Number [address] * Stool culture + Shiga toxin+Salmonella+Campylobacter (07/18/2018 4:44 PM CDT) Result No Salmonella, Shigella or [facility] Campylobacter isolated [facility] Specimen Stool Performing Organization Address City/[facility] Phone Number [address] * Blood Culture - Routine (Left Venipuncture) (07/18/2018 4:38 PM CDT) Only the most recent of 6 results within the time period is included. Result No growth in 5 days [facility] Specimen Blood Performing Organization Address City/[facility]/Zipcode Phone Number [place] [phone] [place] [address] * Rapid Influenza A&B Screen (07/18/2018 4:38 PM CDT) Rapid Influenza A Antigen NEGATIVE LABORATORY FINDING Negative, Inconclusive [facility] Rapid influenza B Antigen NEGATIVE LABORATORY FINDING Negative, Inconclusive [facility] Specimen Nasal Performing Organization Address City/State/Zipcode Phone Number [facility] [address] [place] [address] [facility] * RESPIRATORY PANEL [facility] (07/18/2018 4:00 PM CDT) Human Metapneumovirus Not detected Not detected, Equivocal [facility] Rhinovirus Detected (A)Comment: Assay is Not detected, Equivocal [facility] not able differentiate between [facility] Human Rhinovirus and Enterovirus.Droplet isolation. Contact isolation if young infants. Consider stopping antibiotics. Influenza A Not detected Not detected, Equivocal [facility] INFLUENZA A (NO SUBTYPE) Not detected, Equivocal [facility] Influenza A subtype H1 Not detected, Equivocal [facility] Influenza A Subtype H3 Not detected, Equivocal [facility] Influenza A Subtype Not detected, Equivocal [facility] H1-2009 [facility] Influenza B Not detected Not detected, Equivocal [facility] Respiratory Syncytial Not detected Not detected, Equivocal [facility] Virus [facility] Parainfluenza Virus 1 Not detected Not detected, Equivocal [facility] Parainfluenza Virus 2 Not detected Not detected, Equivocal [facility] Parainfluenza virus 3 Not detected Not detected, Equivocal [facility] Parainfluenza Virus 4 Not detected Not detected, Equivocal [facility] Adenovirus Not detected Not detected, Equivocal [facility] [facility] Coronavirus 229E Not detected Not detected, Equivocal [facility] Coronavirus HKU1 Not detected Not detected, Equivocal [facility] Coronavirus NL63 Not detected Not detected, Equivocal [facility] Coronavirus OC43 Not detected Not detected, Equ[facility]ocal [facility] Bordetella Pertussis Not detected Not detected, Equivocal [facility] Chlamydophila Pneumoniae Not detected Not detected, Equivocal [facility] Mycoplasma Pneumoniae Not detected Not detected, Equ[facility]ocal [facility] Specimen Nasopharyngeal Narrative Performed At Other viruses and bacteria not targeted by this PCR panel cannot be excluded; [facility] therefore clinical correlation and follow up of serology, culture results, and [facility] other molecular studies is required. The results are not intended to be used as the sole means for clinical diagnosis or patient management decisions. This sample was tested at the [facility] Molecular Diagnostics Laboratory using the Mira DxArray Respiratory Panel. It is FDA cleared and has been verified and approved by the [facility] Molecular Diagnostics Laboratory for clinical use on nasal swab specimens. It is not FDA-cleared for use on bronchial wash/lavage samples. However, for this sample type, validation was performed and test characteristics were determined and approved, by [facility] Molecular Diagnostics laboratory for clinical use under the Clinical Laboratory Improvement Amendments (CLIA) of 1988 requirements. Therefore, FDA clearance is not required.This laboratory is CLIA-certified and [employer] (CAP)-accredited to perform high complexity testing. Performing Organization Address City/[facility]/[place] [address] [phone] [place] [address] * Procalcitonin (07/18/2018 3:59 PM CDT) Only the most recent of 2 results within the time period is included. Procalcitonin 6.93 (H) <0.05 ng/mL [facility] Specimen Blood Narrative Performed At SEPSIS RISK (ng/mL) [facility] Low:0.05-0.50 [facility] Intermediate: 0.51-2.00 High: >=2.01 Performing Organization Address City/[facility] Phone Number [address] [address] [facility] * Prothrombin time/INR (07/18/2018 3:59 PM CDT) Protime 18.0 (H) 11.7 - 14.7 seconds [facility] INR 1.5 <=5.9 [facility] Specimen Blood Narrative Performed At RECOMMENDED COUMADIN/WARFARIN INR THERAPY RANGES [facility] STANDARD DOSE: 2.0 - 3.0 Includes: PROPHYLAXIS for venous thrombosis, [facility] systemic embolization; TREATMENT for venous thrombosis and/or pulmonary embolus. HIGH RISK: Target INR is 2.5-3.5 for patients with mechanical heart valves. Performing Organization Address City/[facility] Phone Number [facility] [address] [place] [address] [facility] * ECG/EKG Interpretation (07/18/2018 3:30 PM CDT) Narrative Performed At Beverley Muñoz MD 07/18/20187:11 PM ECG/EKG Interpretation Date/Time: 07/18/2018 5:30 PM Performed by: Beverley Muñoz MD Authorized by: Beverley Muñoz MD The ECG was interpreted by ED physician. This ECG was compared with previous ECG (similar morphology to 07/03/18)(s).The ECG is interpreted as sinus rhythm. Rate is normal rate. Heart rate is [address] depression in lead(s) V6. T-wave inversion in lead(s) V6. Clinical Impression: non-specific ECGECG reviewed and does not meet STEMI criteria. Patient tolerance: Patient tolerated the procedure well with no immediate complications * Hemoglobin and hematocrit (07/05/2018 8:02 PM CDT) Hemoglobin 9.2 (L) 13.7 - 17.5 GM/DL [facility] Hematocrit 29.7 (L) 40.1 - 51.0 % [facility] Specimen Blood Performing Organization Address City/[facility]/Zipcode Phone Number [facility] [address] [place] [address] [facility] * IR Nephrostogram thru Existing Access (07/05/2018 10:12 AM CDT) Specimen Narrative Performed At FINAL REPORT [facility] Nephrostogram with removal of left nephroureteral stent. History: History of urinary obstruction. Concern for infection. Request is for nephrostogram with removal of catheter if there is no evidence of obstruction.. Modality: Fluoroscopy Sedation: None Anesthesia:Two percent Lidocaine without epinephrine. Approach:Existing left percutaneous nephroureterostomy catheter Estimated blood loss:< 5 cc. Specimen: None. styrene dehydration reactor operator: Jackson Hagen MD. Pedicurist: Genaro. Fluoroscopy Time: 0.9 min. Reference Air Kerma (Ka, r): 3.5 mGy. Technique: Informed written consent was obtained. Discussion of risks, benefits, and alternatives were made with the patient. The patient expressed understanding and agreed to proceed.A universal timeout was performed prior to starting the procedure.All elements maximal sterile barrier technique was utilized for this procedure, including utilization of sterile scrub solution for skin prep, a large sterile sheet to cover the areas of the patient that were not prepped, and hand hygiene, mask, head covering, and sterile gown for performing radiologist and scrub technologist. A spot fluoroscopic radiograph of the patient's abdomen was obtained which demonstrated that the patient had a left percutaneous nephroureteral stent, not a percutaneous nephrostomy catheter. The catheter was severed and a Amplatz guidewire was inserted through the catheter into the bladder. The catheter was then removed over the Amplatz wire. A sheath was then placed over the wire and into the renal pelvis. An antegrade nephrostogram was performed through the sheath which demonstrated no evidence of obstruction with free flow of contrast into the bladder. The wire and sheath were then removed. Impression: Antegrade nephrostogram demonstrates no evidence of obstruction. The nephroureterostomy catheter was removed. Signed: Jackson Hagen MD Report Verified Date/Time:07/09/2018 19:03:49 Reading Location: [place] [address] Angio Body Reading Room Procedure Note Interface, External Ris In - 07/09/2018 7:06 PM CDT FINAL REPORT Nephrostogram with removal of left nephroureteral stent. History: History of urinary obstruction. Concern for infection. Request is for nephrostogram with removal of catheter if there is no evidence of obstruction.. Modality: Fluoroscopy Sedation: None Anesthesia: Two percent Lidocaine without epinephrine. Approach: Existing left percutaneous nephroureterostomy catheter Estimated blood loss: < 5 cc. Specimen: None. styrene dehydration reactor operator: Jackson Hagen MD. Pedicurist: Genaro. Fluoroscopy Time: 0.9 min. Reference Air Kerma (Ka, r): 3.5 mGy. Technique: Informed written consent was obtained. Discussion of risks, benefits, and alternatives were made with the patient. The patient expressed understanding and agreed to proceed. A universal timeout was performed prior to starting the procedure. All elements maximal sterile barrier technique was utilized for this procedure, including utilization of sterile scrub solution for skin prep, a large sterile sheet to cover the areas of the patient that were not prepped, and hand hygiene, mask, head covering, and sterile gown for performing radiologist and scrub technologist. A spot fluoroscopic radiograph of the patient's abdomen was obtained which demonstrated that the patient had a left percutaneous nephroureteral stent, not a percutaneous nephrostomy catheter. The catheter was severed and a Amplatz guidewire was inserted through the catheter into the bladder. The catheter was then removed over the Amplatz wire. A sheath was then placed over the wire and into the renal pelvis. An antegrade nephrostogram was performed through the sheath which demonstrated no evidence of obstruction with free flow of contrast into the bladder. The wire and sheath were then removed. Impression: Antegrade nephrostogram demonstrates no evidence of obstruction. The nephroureterostomy catheter was removed. Signed: Jackson Hagen MD Report Verified Date/Time: 07/09/2018 19:03:49 Reading Location: [place] [address] Angio Body Reading Room Performing Organization Address City/State/Zipcode Phone Number [facility] * ECHOCARDIOGRAM REPORT - SCAN (07/04/2018 9:13 PM CDT) Narrative Performed At * 2D Echo W/Doppler(CW/PW/Color) (07/04/2018 1:41 AM CDT) Ejection Fraction [facility] Specimen Narrative Performed At Transthoracic Echocardiography Report (TTE) [facility] Demographics [facility] Patient Name BRADFORD DIAZ Date of Study 07/04/2018 ANGELA [id number] Male Visit Number [id number] Room Number 7305 Number Date of Birth1960Referring Physician Tirso Garcia Age58 year(s)Global Chief Experience Officer Renuka Hsu RDCS, RVT AnalystAlex Bella Nickerson MD Physician Procedure Type of Study TTE procedure:2DECHO W DOPPLER(CW/PW/COLOR) (STAT) Indications:Sustained or non sustained Afib, SVT or VT. Clinical History cancer, cad, dm, hld, htn, mi HGB 8.7 HCT 27.6 % Height: 66 inches Weight: 67.13 kg (148 lbs) BSA: 1.76 m^2 BMI: 23.89 kg/m^2 HR: 110 bpm BP: 95/54 mmHg Summary The left ventricle is chamber size (by PSLAX dimension) is normal (male - LVIDd 4.2-5.8cm) . Normal LV wall thickness. The following segment(s) appear severely hypokinetic: mid to apical inferior, inferolateral, apex . Kingston is mildly aneurysmal. The other segments are mildly hypokinetic. Global LV systolic function moderately reduced . Estimated LVEF by qualitative assessment is moderately reduced (30-34%) . Unable to estimate peak systolic PA pressure; inadequate TR velocity signal. A small posterolateral pericardial effusion is present . Signature Findings Left Ventricle The left ventricle is chamber size (by PSLAX dimension) is normal (male - LVIDd 4.2-5.8cm) . Normal LV wall thickness. The following segment(s) appear severely hypokinetic: mid to apical inferior, inferolateral, apex . Kingston is mildly aneurysmal. The other segments are mildly hypokinetic. Global LV systolic function moderately reduced . Estimated LVEF by qualitative assessment is moderately reduced (30-34%) . Left AtriumLA size is severely enlarged (>48 ml/m2) . Right VentricleNormal right ventricle structure and function. Right Atrium Normal right atrium. Aortic Valve Mild AoV cusp thickening. Mild AoV cusp calcification. Mitral Valve Mild MV leaflet thickening. Tricuspid ValveA trace of tricuspid regurgitation. Unable to estimate peak systolic PA pressure; inadequate TR velocity signal. Pulmonic Valve Normal PV structure and function by limited views and Doppler. AortaAortic root size (SInus of Valsalva diameter) is normal . PericardiumA small posterolateral pericardial effusion is present . IVC/SVC/PA/PV/PleuralThe estimated RA pressure by IVC dynamics 5-10mmHg . Chambers/Structures Left Atrium LA Dimension: 3.77 cmLA Area: 26.74 cm^2 LA Volume: 91.07 ml LA Vol. Index: 52 ml/m^2 Left Ventricle LVIDd: 4.61 cm LVEDV:123.06 ml LV Septum Diastolic: 1.01 cm LV PW Diastolic: 1.07 cm LVEDV Garcia's:170.9 ml LV Length: 9.82 cm LVESV Garcia's:113.84 ml LVEF Garcia's: 33.4 % LVEDVI: 97 ml/m^2 LVESVI: 65 ml/m^2 LVOT Diameter: 2.01 cm Aorta Ao Root S of Isabella.: 3.23 cm Doppler/Quantitative Measurements Aortic Valve Peak Velocity: 1.39 m/sMean Velocity: 0.97 m/s Peak Gradient: 7.7 mmHgMean Gradient: 4.39 mmHg AV Area (continuity): 2.38 cm^2 AV VTI: 22.02 cm AV DVI: 0.75 LVOT Peak Velocity: 1.14 m/s Peak Gradient: 5.24 mmHg Mean Velocity: 0.76 m/s Mean Gradient: 2.73 mmHg LVOT Diameter: 2.01 cmLVOT VTI: 16.52 cm LVOT Area: 3.17 cm^2LVOT SV:52.39 ml LVOT CO: 5.76 l/min LVOT CI: 3.27 l/min/m^2 Procedure Note Interface, External Ris In - 07/04/2018 11:21 AM CDT Transthoracic Echocardiography Report (TTE) Demographics Patient Name BRADFORD DIAZ Date of Study 07/04/2018 ANGELA Gender Male Visit Number [id number] Race Unknown Room Number 7305 Number Date of 1960 Referring Physician Tirso Garcia Age 58 year(s) Global Chief Experience Officer Renuka Hsu RD, RVT Pararescue Manager Elton Blanco Interpreting Elver Nickerson MD Physician Procedure Type of Study TTE procedure:2DECHO W DOPPLER(CW/PW/COLOR) (STAT) Indications:Sustained or non sustained Afib, SVT or VT. Clinical History cancer, cad, dm, hld, htn, mi HGB 8.7 HCT 27.6 % Height: 66 inches Weight: 67.13 kg (148 lbs) BSA: 1.76 m^2 BMI: 23.89 kg/m^2 HR: 110 bpm BP: 95/54 mmHg Summary The left ventricle is chamber size (by PSLAX dimension) is normal (male - LVIDd 4.2-5.8cm) . Normal LV wall thickness. The following segment(s) appear severely hypokinetic: mid to apical inferior, inferolateral, apex . Kingston is mildly aneurysmal. The other segments are mildly hypokinetic. Global LV systolic function moderately reduced . Estimated LVEF by qualitative assessment is moderately reduced (30-34%) . Unable to estimate peak systolic PA pressure; inadequate TR velocity signal. A small posterolateral pericardial effusion is present . Signature Findings Left Ventricle The left ventricle is chamber size (by PSLAX dimension) is normal (male - LVIDd 4.2-5.8cm) . Normal LV wall thickness. The following segment(s) appear severely hypokinetic: mid to apical inferior, inferolateral, apex . Kingston is mildly aneurysmal. The other segments are mildly hypokinetic. Global LV systolic function moderately reduced . Estimated LVEF by qualitative assessment is moderately reduced (30-34%) . Left Atrium LA size is severely enlarged (>48 ml/m2) . Right Ventricle Normal right ventricle structure and function. Right Atrium Normal right atrium. Aortic Valve Mild AoV cusp thickening. Mild AoV cusp calcification. Mitral Valve Mild MV leaflet thickening. Tricuspid Valve A trace of tricuspid regurgitation. Unable to estimate peak systolic PA pressure; inadequate TR velocity signal. Pulmonic Valve Normal PV structure and function by limited views and Doppler. Aorta Aortic root size (SInus of Valsalva diameter) is normal . Pericardium A small posterolateral pericardial effusion is present . IVC/SVC/PA/PV/Pleural The estimated RA pressure by IVC dynamics 5-10mmHg . Chambers/Structures Left Atrium LA Dimension: 3.77 cm LA Area: 26.74 cm^2 LA Volume: 91.07 ml LA Vol. Index: 52 ml/m^2 Left Ventricle LVIDd: 4.61 cm LVEDV:123.06 ml LV Septum Diastolic: 1.01 cm LV PW Diastolic: 1.07 cm LVEDV Garcia's:170.9 ml LV Length: 9.82 cm LVESV Garcia's:113.84 ml LVEF Garcia's: 33.4 % LVEDVI: 97 ml/m^2 LVESVI: 65 ml/m^2 LVOT Diameter: 2.01 cm Aorta Ao Root S of Isabella.: 3.23 cm Doppler/Quantitative Measurements Aortic Valve Peak Velocity: 1.39 m/s Mean Velocity: 0.97 m/s Peak Gradient: 7.7 mmHg Mean Gradient: 4.39 mmHg AV Area (continuity): 2.38 cm^2 AV VTI: 22.02 cm AV DVI: 0.75 LVOT Peak Velocity: 1.14 m/s Peak Gradient: 5.24 mmHg Mean Velocity: 0.76 m/s Mean Gradient: 2.73 mmHg LVOT Diameter: 2.01 cm LVOT VTI: 16.52 cm LVOT Area: 3.17 cm^2 LVOT SV:52.39 ml LVOT CO: 5.76 l/min LVOT CI: 3.27 l/min/m^2 Performing Organization Address City/State/Zipcode Phone Number [facility] * Blood Culture Panel(BioFire) (07/03/2018 11:58 PM CDT) LISTERIA MONOCYTOGENES Not detected Not detected [facility] STAPHYLOCOCCUS Not detected Not detected [facility] STAPHYLOCOCCUS AUREUS Not detected Not detected [facility] Streptococcus Not detected Not detected [facility] STREPTOCOCCUS AGALACTIAE Not detected Not detected [facility] (GROUP B) [facility] STREPTOCOCCUS PNEUMONIAE Not detected Not detected [facility] Streptococcus pyogenes Not detected Not detected [facility] (Group A) [facility] ACINETOBACTER BAUMANNII Not detected Not detected [facility] HAEMOPHILUS INFLUENZAE Not detected Not detected [facility] NEISSERIA MENINGITIDIS Not detected Not detected [facility] ENTEROBACTERIACEAE Detected (A) Not detected [facility] ENTEROBACTER CLOACOE Not detected Not detected [facility] KLEBSIELLA OXYTOCA Not detected Not detected [facility] KLEBSIELLA PNEUMONIAE Detected (A) Not detected [facility] Comment: [facility] First line therapy: Meropenem. De-escalate based on susceptibilities This test does not evaluate for ESBL Reference Range: Not Detected PROTEUS Not detected Not detected [facility] SERRATIA MARCESCENS Not detected Not detected [facility] ERIC ALBICANS Not detected Not detected [facility] ERIC GLABRATA Not detected Not detected [facility] ERIC NGUYỄN Not detected Not detected [facility] ERIC PARAPSILOSIS Not detected Not detected [facility] ERIC TROPICALIS Not detected Not detected [facility] ESCHERICHIA COLI Not detected Not detected [facility] METHICILLIN-RESISTANCE Not detected [facility] VANCOMYCIN-RESISTANCE Not detected [facility] CARBAPENEM-RESISTANCE Not detected Not detected [facility] ENTEROCOCCUS Not detected Not detected [facility] PSEUDOMONAS AERUGINOSA Not detected Not detected [facility] Specimen Blood Narrative Performed At Other bacteria and resistance markers not targeted by this PCR panel cannot be [facility]; therefore clinical correlation and follow up of serology, culture [facility] results, and other molecular studies is required. The results are not intended to be used as the sole means for clinical diagnosis or patient management decisions. This sample was tested at the [facility] Molecular Diagnostics Laboratory using the [employer] Blood Culture ID Panel. It is FDA cleared and has been verified and approved by the [facility]ostics Laboratory for clinical use. This laboratory is CLIA-certified and [employer] (CAP)-accredited to perform high complexity testing. Performing Organization Address City/[facility] Phone Number [facility] [address] [place] [address] [phone] [place] [address] * Prepare RBC (07/03/2018 11:54 PM CDT) Unit ABO B Pos SAFETRACE TX UNIT NUMBER [id number] SAFETRACE TX Status TX_TIMEINCHART SAFETRACE TX Blood Bank Product RED BLOOD CELLS SAFETRACE TX PRODUCT CODE [id number] SAFETRACE TX CROSSMATCH COMPATIBLE SAFETRACE TX Performing Organization Address [facility] Phone Number SAFETRACE [place] * Iron, TIBC, % sat. (without ferritin) (07/02/2018 5:21 AM CDT) Only the most recent of 2 results within the time period is included. Iron 14.0 (L) 40.0 - 160.0 ug/dL [facility] TIBC 171 (L) 250 - 450 ug/dL [facility] Iron % Saturation 8 (L) 20 - 55 % [facility] Specimen Blood Performing Organization Address City/[facility]/Zipcode Phone Number [facility] [address] [place] [address] [facility] * CBC (Hemogram only) (07/02/2018 5:21 AM CDT) Only the most recent of 3 results within the time period is included. WBC 8.0 3.5 - 10.5 K/L [facility] RBC 2.60 (L) 4.63 - 6.08 M/L [facility] Hemoglobin 6.8 (L) 13.7 - 17.5 GM/DL [facility] Hematocrit 22.1 (L) 40.1 - 51.0 % [facility] MCV 85.0 79.0 - 92.2 fL [facility] MCH 26.2 25.7 - 32.2 pg [facility] MCHC 30.8 (L) 32.3 - 36.5 GM/DL [facility] RDW 17.2 (H) 11.6 - 14.4 % [facility] Platelets 256 150 - 450 K/CU MM [facility] MPV 9.6 9.4 - 12.4 fL [facility] nRBC 0 0 - 0 /100 WBC [facility] Specimen Blood Performing Organization Address City/[facility]/Zipcode Phone Number [facility] [address] [place] [address] [facility] * Potassium (07/02/2018 5:21 AM CDT) Only the most recent of 16 results within the time period is included. Potassium 4.4 3.5 - 5.1 meq/L [facility] Specimen Blood Narrative Performed At Call me if > 5.5 [facility] Performing Organization Address City/State/Zipcode Phone Number [address] * Folate, Serum (07/02/2018 5:21 AM CDT) Folate 7.0 >=7.0 ng/mL [facility] Specimen Blood Performing Organization Address City/[facility] Phone Number [address] * Ferritin (07/02/2018 5:21 AM CDT) Only the most recent of 2 results within the time period is included. Ferritin 326 (H) 5 - 275 ng/mL [facility] Specimen Blood Performing Organization Address City/[facility] Phone Number [address] * Vitamin B12 (07/02/2018 5:21 AM CDT) Vitamin B12 266 213 - 816 pg/mL [facility] Specimen Blood Performing Organization Address [facility] Phone Number [address] * Urinalysis w/Microscopic (07/01/2018 5:26 PM CDT) Color, UA Light Yellow [facility] Clarity, UA Hazy [facility] Specific [place], UA 1.009 1.001 - 1.035 [facility] pH, UA 7.5 5.0 - 8.0 [facility] Protein, UA 50 mg/dL (A) Negative [facility] Glucose, UA Negative Negative [facility] Ketones, UA Negative Negative [facility] Bilirubin, UA Negative Negative [facility] Blood, UA Small (A) Negative [facility] Nitrite, UA Positive (A) Negative [facility] Leukocytes, UA Large (A) Negative [facility] Urobilinogen, UA 0.2 0.2 - 1.0 mg/dL [facility] RBC, UA 15 /HPF [facility] WBC, UA 514 /HPF [facility] Bacteria, UA Few [facility] Specimen Source [facility] Specimen Urine Performing Organization Address City/State/Zipcode Phone Number [address] [address] [facility] * Phosphorus (07/01/2018 4:10 AM CDT) Only the most recent of 3 results within the time period is included. Phosphorus 3.2 2.3 - 4.7 mg/dL [facility] Specimen Blood Performing Organization Address City/State/Zipcode Phone Number [facility] [address] [place] [id number] [facility] * US renal complete (06/30/2018 11:00 PM CDT) Specimen Narrative Performed At FINAL REPORT [facility] Ultrasound of the Kidneys Clinical History:acute renal failure Discussion: Sonographic evaluation of the kidneys was performed. There is no prior study for comparison. Right kidney:12.5 x 5.5 x 4.5 cm, with cortical thickness of 1.9 cm.Normal cortical echogenicity.No mass.No shadowing calculus. No hydronephrosis. Left kidney: 11.8 x 5.8 x 4.9 cm, with cortical thickness of 2.7 cm. Normal cortical echogenicity.No mass.No shadowing calculus.Mild hydronephrosis. Limited doppler evaluation of bilateral main renal arteries and veins demonstrate patency. Bladder:Mildly distended with small amount of debris. Miscellaneous: Small pelvic free fluid. Impression: Mild left hydronephrosis. Small debris within the urinary bladder which may be seen with infection. Correlate clinically. Small pelvic free fluid. Signed: Pedro Gutierrez MD Report Verified Date/Time:07/01/2018 04:44:25 Reading Location: [facility] C013Y CT Body Reading Room Procedure Note Interface, External Ris In - 07/01/2018 4:46 AM CDT FINAL REPORT Ultrasound of the Kidneys Clinical History: acute renal failure Discussion: Sonographic evaluation of the kidneys was performed. There is no prior study for comparison. Right kidney: 12.5 x 5.5 x 4.5 cm, with cortical thickness of 1.9 cm. Normal cortical echogenicity. No mass. No shadowing calculus. No hydronephrosis. Left kidney: 11.8 x 5.8 x 4.9 cm, with cortical thickness of 2.7 cm. Normal cortical echogenicity. No mass. No shadowing calculus. Mild hydronephrosis. Limited doppler evaluation of bilateral main renal arteries and veins demonstrate patency. Bladder: Mildly distended with small amount of debris. Miscellaneous: Small pelvic free fluid. Impression: Mild left hydronephrosis. Small debris within the urinary bladder which may be seen with infection. Correlate clinically. Small pelvic free fluid. Signed: Pedro Gutierrez MD Report Verified Date/Time: 07/01/2018 04:44:25 Reading Location: [facility] C013Y CT Body Reading Room Performing Organization Address City/State/Zipcode Phone Number RIS * HEMODIALYSIS INPATIENT (06/30/2018 4:28 AM CDT) Narrative Performed At Joce Bentley RN 06/30/20184:30 AM HD x 3hrs via RIJ cath completed, net UF 0.0L.Pt in stable condition, report given to primary care RN. Lab Results Component Value Date GLUCOSE 51 (L) 06/29/2018 CALCIUM 9.0 06/29/2018 NA 135 (L) 06/29/2018 K 5.4 (H) 06/29/2018 CO2 20 (L) 06/29/2018 CL 112 (H) 06/29/2018 BUN 40 (H) 06/29/2018 CREATININE 2.11 (H) 06/29/2018 Lab Results Component Value Date WBC 9.2 06/28/2018 HGB 8.2 (L) 06/28/2018 HCT 28.0 (L) 06/28/2018 MCV 88.1 06/28/2018 PLT 278 06/28/2018 Lab Results Component Value Date HEPBSAG Nonreactive 06/29/2018 * Sodium, random urine (06/29/2018 10:44 PM CDT) Sodium Urine 45 meq/L [facility] Specimen Urine - Urine, Nephrostomy Narrative Performed At Reference Range: No Normals [facility] Performing Organization Address [facility] Phone Number [address] * Creatinine, random urine (06/29/2018 10:44 PM CDT) Creatinine, Ur 43.3 mg/dL [facility] Specimen Urine - Urine, Nephrostomy Narrative Performed At Reference Range: No Normals [facility] Performing Organization Address [facility] Phone Number [address] * Hepatitis B surface antigen (06/29/2018 5:26 PM CDT) hepatitis B Surface Ag NON-REACTIVE Nonreactive [facility] Specimen Blood Performing Organization Address [facility] Phone Number [address] * Lactate dehydrogenase (LDH) (06/29/2018 5:26 PM CDT) LDH 242 (H)Comment: Specimen 125 - 220 U/L [facility] slightly hemolyzed [facility] Specimen Blood Performing Organization Address [facility] Phone Number [address] * Creatine Kinase (CK) (06/29/2018 5:26 PM CDT) Total CK 60 29 - 200 U/L [facility] Specimen Blood Performing Organization Address City/State/Zipcode Phone Number [facility] [address] [place] [address] [facility] * plasma potassium (9999) (06/29/2018 4:25 PM CDT) Scan Result [facility] Specimen Blood Narrative Performed At Performing Organization Address City/State/Zipcode Phone Number [facility] [id number] [place], [place] * XR chest 2 views (06/28/2018 9:42 PM CDT) Specimen Narrative Performed At FINAL REPORT [facility] Exam: Chest x-ray, PA and lateral views Clinical History: Hypoglycemia. Comparison: Chest radiograph 10/28/2016. Technique: Frontal and lateral views of the chest were obtained. Findings: There is a right IJ Port-A-Cath with tip in the SVC. The heart is normal in size. The aorta is atherosclerotic. There is no focal pulmonary consolidation, pleural effusion or pneumothorax. There is no pulmonary edema. The bony thorax is unremarkable. Impression: No focal pulmonary consolidation. Signed: Pedro Gutierrez MD Report Verified Date/Time:06/28/2018 22:10:22 Reading Location: [facility] Body Reading Room Procedure Note Interface, External Ris In - 06/28/2018 10:12 PM CDT FINAL REPORT Exam: Chest x-ray, PA and lateral views Clinical History: Hypoglycemia. Comparison: Chest radiograph 10/28/2016. Technique: Frontal and lateral views of the chest were obtained. Findings: There is a right IJ Port-A-Cath with tip in the SVC. The heart is normal in size. The aorta is atherosclerotic. There is no focal pulmonary consolidation, pleural effusion or pneumothorax. There is no pulmonary edema. The bony thorax is unremarkable. Impression: No focal pulmonary consolidation. Signed: Pedro Gutierrez MD Report Verified Date/Time: 06/28/2018 22:10:22 Reading Location: [facility] C013Y CT Body Reading Room Performing Organization Address City/State/Zipcode Phone Number [facility] * IR CV Access Fluoro (10/26/2017 9:11 AM CDT) Specimen Narrative Performed At FINAL REPORT [facility] Right internal jugular chest port insertion History: Rectal cancer. Modality: Sonography and fluoroscopy. Sedation: Moderate sedation was administered. 1 mg of Versed and50 mcg of fentanyl IV was used for moderate sedation monitored under my direction. Total intra-service time of sedation [id number]. The patient's vital signs were monitored throughout the procedure and recorded in the patient's medical record by the nurse. Podiatry Teacher:Arvind Rendon MD Pedicurist:Bere Douglas (fellow). Approach: Right internal jugular vein Estimated blood loss:< 5 cc. Specimen: None. Fluoroscopy Time: 0.6 min. Reference Air Kerma (Ka, r): 2.1 mGy. Technique: Informed written consent was obtained. Discussion of risks, benefits, and alternatives were made with the patient. The patient expressed understanding and agreed to proceed.A universal timeout was performed prior to starting the procedure.All elements maximal sterile barrier technique was utilized for this procedure, including utilization of sterile scrub solution for skin prep, a large sterile sheet to cover the areas of the patient that were not prepped, and hand hygiene, mask, head covering, and sterile gown for performing radiologist and scrub technologist. The skin was anesthetized with 2% lidocaine.Ultrasound evaluation showed a patent and compressible right internal jugular vein, which was punctured under direct real-time ultrasound guidance with a micropuncture needle.An ultrasound image was saved to PACS. A 0.018 inch wire was placed through the needle into the right atrium. A 4 Danish micropuncture sheath was placed a 0.035 wire was advanced into the IVC. A subcutaneous tunnel and pocket were created in the right anterior chest wall by blunt dissection.The pocket was flushed with antibiotic solution. A 6 Danish Bard single lumen power injectable port was placed within the pocket and the catheter brought through the tunnel. The catheter was cut to appropriate length a peel-away sheath was placed in the right IJ vein and the catheter was advanced through the sheath, with its distal tip terminating in the cavoatrial junction. The peel-away sheath was removed. The port was flushed and aspirated easily following placement.The skin incision was closed with Monocryl and Dermabond.The small jugular incision site was closed using Dermabond.The patient tolerated the procedure well and left the department in the same condition. Patient received 1 gram of Vancomycin intravenously pre-procedure. Results:Spot radiograph of the chest demonstrates the new right IJ Port-A-Cath to lie in the expected position with its tip overlying the cavoatrial junction. Impression: Successful, uncomplicated placement of a right internal jugular chest port using sonographic and fluoroscopic guidance and conscious sedation. The port is ready for immediate use. Signed: Arvind Rendon MD Report Verified Date/Time:10/26/2017 18:30:43 Reading Location: [place] [address] Angio Body Reading Room Procedure Note Interface, External Ris In - 10/26/2017 6:32 PM CDT FINAL REPORT Right internal jugular chest port insertion History: Rectal cancer. Modality: Sonography and fluoroscopy. Sedation: Moderate sedation was administered. 1 mg of Versed and 50 mcg of fentanyl IV was used for moderate sedation monitored under my direction. Total intra-service time of sedation was 30 minutes. The patient's vital signs were monitored throughout the procedure and recorded in the patient's medical record by the nurse. Podiatry Teacher: Arvind Rendon MD Pedicurist: Bere Douglas (fellow). Approach: Right internal jugular vein Estimated blood loss: < 5 cc. Specimen: None. Fluoroscopy Time: 0.6 min. Reference Air Kerma (Ka, r): 2.1 mGy. Technique: Informed written consent was obtained. Discussion of risks, benefits, and alternatives were made with the patient. The patient expressed understanding and agreed to proceed. A universal timeout was performed prior to starting the procedure. All elements maximal sterile barrier technique was utilized for this procedure, including utilization of sterile scrub solution for skin prep, a large sterile sheet to cover the areas of the patient that were not prepped, and hand hygiene, mask, head covering, and sterile gown for performing radiologist and scrub technologist. The skin was anesthetized with 2% lidocaine. Ultrasound evaluation showed a patent and compressible right internal jugular vein, which was punctured under direct real-time ultrasound guidance with a micropuncture needle. An ultrasound image was saved to PACS. A 0.018 inch wire was placed through the needle into the right atrium. A 4 Danish micropuncture sheath was placed a 0.035 wire was advanced into the IVC. A subcutaneous tunnel and pocket were created in the right anterior chest wall by blunt dissection. The pocket was flushed with antibiotic solution. A 6 Danish Bard single lumen power injectable port was placed within the pocket and the catheter brought through the tunnel. The catheter was cut to appropriate length a peel-away sheath was placed in the right IJ vein and the catheter was advanced through the sheath, with its distal tip terminating in the cavoatrial junction. The peel-away sheath was removed. The port was flushed and aspirated easily following placement. The skin incision was closed with Monocryl and Dermabond. The small jugular incision site was closed using Dermabond. The patient tolerated the procedure well and left the department in the same condition. Patient received 1 gram of Vancomycin intravenously pre-procedure. Results: Spot radiograph of the chest demonstrates the new right IJ Port-A-Cath to lie in the expected position with its tip overlying the cavoatrial junction. Impression: Successful, uncomplicated placement of a right internal jugular chest port using sonographic and fluoroscopic guidance and conscious sedation. The port is ready for immediate use. Signed: Arvind Rendon MD Report Verified Date/Time: 10/26/2017 18:30:43 Reading Location: [place] [address] Angio Body Reading Room Performing Organization Address City/State/Zipcode Phone Number [facility] * Platelet count (10/26/2017 6:28 AM CDT) Platelets 370 150 - 450 K/CU MM [facility] Specimen Blood Performing Organization Address City/State/Zipcode Phone Number [facility] [address] [place] [address] [facility] after 08/20/2017 Insurance Payer Benefit Subscriber ID Type Phone Address Plan / Group [employer] xxxxxxxxxxx MEDICARE ADV Advance Directives For more information, please contact: [facility] [address] [place] [address] Date Inactivated Comments Code Status Date Activated 07/24/2018 5:23 PM Full Code 07/18/2018 3:40 PM This code status was determined by: Patient 07/07/2018 8:16 PM Full Code 07/04/2018 12:51 AM This code status was determined by: Patient 07/04/2018 12:51 AM Full Code 06/29/2018 4:48 PM This code status was determined by: Patient 06/29/2018 4:48 PM Full Code 06/29/2018 12:26 AM This code status was determined by: Patient 11/30/2016 12:31 AM Full Code 11/23/2016 10:50 AM This code status was determined by: Patient
--- OUTSIDE RECORDS SUMMARY | 2018-08-21 15:50 | XMS REPORT ---
[facility] Address Unknown Phone Unavailable Care Team Providers Care Payroll Analyst Name Role Phone Damien SMITH Unavailable Unavailable NAYE, ARITosha Unavailable Unavailable Gail MOORE Unavailable Unavailable ABBAS, FRANSISCO KANZA Unavailable Unavailable ALADESAMIRAO Unavailable Unavailable PIPO EVERETT Unavailable Unavailable Payers Payer Name Policy Type Policy Number Effective Date Expiration Date Problems This patient has no known problems. Allergies, Adverse Reactions, Alerts Allergy Name Allergy Type Status Severity Reaction(s) Onset Date Inactive Date Treating Clinician Comments No Known Allergies DA Active U 2018-06-05 00:00:00 No Known Allergies DA Active U 2018-03-18 00:00:00 No Known Allergies DA Active U 2016-11-16 00:00:00 Medications This patient has no known medications. Results Test Description Test Time Test Comments Text Results Atomic Results Result Comments CREATININE, BODY FLUID 2018-08-02 19:08:00 CREATININE FLUID (BEAKER) (test uuep=966) > mg/dL Reference Range: No Normals Assay performance has not been validated for this type of specimen.Please place ostomy bag over draining left flank wound and kelly ect fluid until sufficient to send for Cr analysis. Thanks.URINALYSIS W/ REFLEX URINE [id number] 17:46:00* Test Item Value Reference Range Comments COLOR (BEAKER) (test nwix=367) Yellow CLARITY (BEAKER) (test oozc=343) Cloudy SPECIFIC GRAVITY UA (BEAKER) (test wrdq=530) 1.017 1.001-1.035 PH UA (BEAKER) (test welr=989) 7.0 5.0-8.0 PROTEIN UA (BEAKER) (test uvsl=364) 300 mg/dL Negative GLUCOSE UA (BEAKER) (test pxyo=080) 70 mg/dL Negative KETONES UA (BEAKER) (test potm=372) Negative Negative BILIRUBIN UA (BEAKER) (test wmnv=877) Negative Negative BLOOD UA (BEAKER) (test vgou=763) Moderate Negative NITRITE UA (BEAKER) (test anaw=710) Negative Negative LEUKOCYTE ESTERASE UA (BEAKER) (test hmbb=874) Large Negative UROBILINOGEN UA (BEAKER) (test xgzu=568) 0.2 mg/dL 0.2-1.0 RBC UA (BEAKER) (test xhkb=800) 0 /HPF WBC UA (BEAKER) (test gtet=637) 1216 /HPF BACTERIA (BEAKER) (test gurh=618) Rare MUCUS (BEAKER) (test hrpt=9470) Occasional SQUAMOUS EPITHELIAL (BEAKER) (test ecin=601) 2 /HPF CASTS (BEAKER) (test bgeg=5023) 18 /LPF SOURCE(BEAKER) (test wicp=1593) BASIC METABOLIC [id number] 16:53:00* Test Item Value Reference Range Comments SODIUM (BEAKER) (test xydq=601) 136 meq/L 136-145 POTASSIUM (BEAKER) (test gmmu=639) 4.6 meq/L 3.5-5.1 CHLORIDE (BEAKER) (test ybmz=159) 111 meq/L 98-107 CO2 (BEAKER) (test eqeg=692) 17 meq/L 22-29 BLOOD UREA NITROGEN (BEAKER) (test fqgl=230) 25 mg/dL 7-21 CREATININE (BEAKER) (test frap=766) 1.92 mg/dL 0.57-1.25 GLUCOSE RANDOM (BEAKER) (test fvlg=043) 202 mg/dL 70-105 CALCIUM (BEAKER) (test rkzz=311) 9.0 mg/dL 8.4-10.2 EGFR (BEAKER) (test porh=8248) 36 mL/min/1.73 sq m ESTIMATED GFR IS NOT ACCURATE CREATININE CLEARANCE IN PREDICTING GLOMERULAR FILTRATION RATE. ESTIMATED GFR IS NOT APPLICABLE FOR DIALYSIS PATIENTS. CT, [id number] 16:44:00Reason for exam:->WOUND CHECKWhat is the patient's sedation requirement?->No SedationFINAL REPORT TECHNIQUE: CT of the abdomen and [...] contracted, limiting its evaluation. No biliary ductal dilatation.SPLEEN: No splenomegaly.PANCREAS: No focal masses or ductal dilatation. ADRENALS: No adrenal nodules.KIDNEYS/URETERS: Mild bilateral hydronephrosis. No stones or definite solid mass lesions. Vascular calcifications in both renal sinuses. Nonspecific mild bilateral perinephric stranding. Tract from prior left nephrostomy tube is visualized extending from the posterior left kidney to the skin surface on the left back. There is mild fat stranding around the tract, which appears to contain a trace amount of fluid.PELVIC ORGANS/BLADDER: The bladder is underdistended, limiting its eval uation. Prostate and seminal vesicles are grossly unremarkable. PERITONEUM/RETRO PERITONEUM: No free air or fluid. Presacral soft tissue stranding, likely relate d to prior treatment. Asymmetric soft tissue density in the left pelvis adjacent to the colorectal anastomosis (for example, axial series image 67).LYMPH NODES: Multiple mildly prominent retroperitoneal lymph nodes measure up to 1.2 cm.VESS ELS: Atherosclerotic vascular calcifications in the abdominal aorta and branch v essels without aneurysm. GI TRACT: Ostomies in the right and left abdomen. No di stention or wall thickening. BONES AND SOFT TISSUES: Degenerative changes of the visualized spine. Soft tissues are unremarkable. IMPRESSION:Tract from prior n ephrostomy tube extending from the left kidney to the skin surface of the left b ack appears to contain trace amount of fluid. Stranding around the tract is sugg estive of inflammation. Mild bilateral hydronephrosis. Asymmetric soft tissue de nsity in the left pelvis adjacent to the colorectal anastomosis may represent po sttreatment change. Recurrent tumor cannot be excluded. Indeterminate mildly pro minent retroperitoneal lymph nodes. Signed: Gris Ulloa MDReport Verified Da te/Time: 08/02/2018 16:44:39 Reading Location: [facility] B1 C013Y CT Body Reading May m W/PLT COUNT & AUTO [id number] 16:41:00* Test Item Value Reference Range Comments WHITE BLOOD CELL COUNT (BEAKER) (test wypz=538) 12.6 K/ L 3.5-10.5 RED BLOOD CELL COUNT (BEAKER) (test dyue=042) 4.30 M/ L 4.63-6.08 HEMOGLOBIN (BEAKER) (test kkms=194) 11.0 GM/DL 13.7-17.5 HEMATOCRIT (BEAKER) (test qzle=799) 36.9 % 40.1-51.0 MEAN CORPUSCULAR VOLUME (BEAKER) (test xunf=117) 85.8 fL 79.0-92.2 MEAN CORPUSCULAR HEMOGLOBIN (BEAKER) (test hdri=005) 25.6 pg 25.7-32.2 MEAN CORPUSCULAR HEMOGLOBIN CONC (BEAKER) (test iwpq=596) 29.8 GM/DL 32.3-36.5 RED CELL DISTRIBUTION WIDTH (BEAKER) (test tauh=879) 16.4 % 11.6-14.4 PLATELET COUNT (BEAKER) (test wznu=254) 491 K/CU MM 150-450 MEAN PLATELET VOLUME (BEAKER) (test bimv=438) 9.6 fL 9.4-12.4 NUCLEATED RED BLOOD CELLS (BEAKER) (test yfwz=462) 0 /100 WBC 0-0 NEUTROPHILS RELATIVE PERCENT (BEAKER) (test ceky=349) 82 % LYMPHOCYTES RELATIVE PERCENT (BEAKER) (test imch=092) 9 % MONOCYTES RELATIVE PERCENT (BEAKER) (test euny=104) 6 % EOSINOPHILS RELATIVE PERCENT (BEAKER) (test brul=936) 2 % BASOPHILS RELATIVE PERCENT (BEAKER) (test wyvi=151) 1 % NEUTROPHILS ABSOLUTE COUNT (BEAKER) (test dyht=983) 10.33 K/ L 1.78-5.38 LYMPHOCYTES ABSOLUTE COUNT (BEAKER) (test ouco=326) 1.13 K/ L 1.32-3.57 MONOCYTES ABSOLUTE COUNT (BEAKER) (test fbrg=663) 0.76 K/ L 0.30-0.82 EOSINOPHILS ABSOLUTE COUNT (BEAKER) (test wbgl=615) 0.24 K/ L 0.04-0.54 BASOPHILS ABSOLUTE COUNT (BEAKER) (test uqil=822) 0.06 K/ L 0.01-0.08 IMMATURE GRANULOCYTES-RELATIVE PERCENT (BEAKER) (test sfmk=2977) 1 % 0-1 POCT-GLUCOSE [id number] 07:40:00* Test Item Value Reference Range Comments POC-GLUCOSE METER (BEAKER) (test rnzd=8099) 186 mg/dL 70-110 TESTED AT [address] [address] POCT-GLUCOSE [id number] 23:59:00* Test Item Value Reference Range Comments POC-GLUCOSE METER (BEAKER) (test yyth=0367) 286 mg/dL 70-110 TESTED AT [address] [address] BLOOD [id number] 20:02:00* Test Item Value Reference Range Comments CULTURE (BEAKER) (test ucan=2595) No growth in 5 days BLOOD [id number] 20:02:00* Test Item Value Reference Range Comments CULTURE (BEAKER) (test oiaw=7360) No growth in 5 days POCT-GLUCOSE [id number] 18:10:00* Test Item Value Reference Range Comments POC-GLUCOSE METER (BEAKER) (test gimy=3281) 235 mg/dL 70-110 TESTED AT [address] [address] POCT-GLUCOSE [id number] 14:37:00* Test Item Value Reference Range Comments POC-GLUCOSE METER (BEAKER) (test wmml=5792) 256 mg/dL 70-110 TESTED AT [address] [address] POCT-GLUCOSE [id number] 08:08:00* Test Item Value Reference Range Comments POC-GLUCOSE METER (BEAKER) (test iypq=6092) 219 mg/dL 70-110 TESTED AT [address] [address] POCT-GLUCOSE [id number] 23:10:00* Test Item Value Reference Range Comments POC-GLUCOSE METER (BEAKER) (test ntoz=4298) 294 mg/dL 70-110 TESTED AT [place] [address] [facility] [address] POCT-GLUCOSE [id number] 17:29:00* Test Item Value Reference Range Comments POC-GLUCOSE METER (BEAKER) (test niit=8742) 255 mg/dL 70-110 TESTED AT [address] [address] POCT-GLUCOSE [id number] 12:33:00* Test Item Value Reference Range Comments POC-GLUCOSE METER (BEAKER) (test ccme=6156) 247 mg/dL 70-110 TESTED AT [address] [address] POCT-GLUCOSE [id number] 08:26:00* Test Item Value Reference Range Comments POC-GLUCOSE METER (BEAKER) (test qufc=5461) 221 mg/dL 70-110 TESTED AT [address] [address] [id number] 06:30:00* Test Item Value Reference Range Comments MAGNESIUM (BEAKER) (test vbhh=323) 1.4 mg/dL 1.6-2.6 BASIC METABOLIC [id number] 06:30:00* Test Item Value Reference Range Comments SODIUM (BEAKER) (test hcqd=317) 133 meq/L 136-145 POTASSIUM (BEAKER) (test zrht=467) 4.5 meq/L 3.5-5.1 CHLORIDE (BEAKER) (test noff=953) 110 meq/L 98-107 CO2 (BEAKER) (test jvld=961) 16 meq/L 22-29 BLOOD UREA NITROGEN (BEAKER) (test elec=030) 44 mg/dL 7-21 CREATININE (BEAKER) (test skvo=998) 2.13 mg/dL 0.57-1.25 GLUCOSE RANDOM (BEAKER) (test rpxz=309) 157 mg/dL 70-105 CALCIUM (BEAKER) (test afks=502) 8.4 mg/dL 8.4-10.2 EGFR (BEAKER) (test wmbk=2889) 32 mL/min/1.73 sq m ESTIMATED GFR IS NOT ACCURATE CREATININE CLEARANCE IN PREDICTING GLOMERULAR FILTRATION RATE. ESTIMATED GFR IS NOT APPLICABLE FOR DIALYSIS PATIENTS. CBC W/PLT COUNT & AUTO [id number] 06:04:00* Test Item Value Reference Range Comments WHITE BLOOD CELL COUNT (BEAKER) (test wfsx=119) 9.2 K/ L 3.5-10.5 RED BLOOD CELL COUNT (BEAKER) (test oqdf=853) 3.37 M/ L 4.63-6.08 HEMOGLOBIN (BEAKER) (test tdnd=036) 9.0 GM/DL 13.7-17.5 HEMATOCRIT (BEAKER) (test pdwv=583) 28.0 % 40.1-51.0 MEAN CORPUSCULAR VOLUME (BEAKER) (test myib=245) 83.1 fL 79.0-92.2 MEAN CORPUSCULAR HEMOGLOBIN (BEAKER) (test ivdm=398) 26.7 pg 25.7-32.2 MEAN CORPUSCULAR HEMOGLOBIN CONC (BEAKER) (test ajqg=671) 32.1 GM/DL 32.3-36.5 RED CELL DISTRIBUTION WIDTH (BEAKER) (test gmim=653) 17.0 % 11.6-14.4 PLATELET COUNT (BEAKER) (test tfpv=194) 279 K/CU MM 150-450 MEAN PLATELET VOLUME (BEAKER) (test pqhb=177) 10.6 fL 9.4-12.4 NUCLEATED RED BLOOD CELLS (BEAKER) (test jhjm=078) 0 /100 WBC 0-0 NEUTROPHILS RELATIVE PERCENT (BEAKER) (test yplo=668) 84 % LYMPHOCYTES RELATIVE PERCENT (BEAKER) (test vuaj=206) 9 % MONOCYTES RELATIVE PERCENT (BEAKER) (test wkmu=618) 5 % EOSINOPHILS RELATIVE PERCENT (BEAKER) (test kmtr=034) 1 % BASOPHILS RELATIVE PERCENT (BEAKER) (test kywp=125) 0 % NEUTROPHILS ABSOLUTE COUNT (BEAKER) (test mccj=602) 7.70 K/ L 1.78-5.38 LYMPHOCYTES ABSOLUTE COUNT (BEAKER) (test zdvs=146) 0.80 K/ L 1.32-3.57 MONOCYTES ABSOLUTE COUNT (BEAKER) (test hwpd=711) 0.50 K/ L 0.30-0.82 EOSINOPHILS ABSOLUTE COUNT (BEAKER) (test pxzk=970) 0.11 K/ L 0.04-0.54 BASOPHILS ABSOLUTE COUNT (BEAKER) (test kazs=979) 0.03 K/ L 0.01-0.08 IMMATURE GRANULOCYTES-RELATIVE PERCENT (BEAKER) (test jmno=7438) 1 % 0-1 POCT-GLUCOSE [id number] 21:25:00* Test Item Value Reference Range Comments POC-GLUCOSE METER (BEAKER) (test uplb=7417) 244 mg/dL 70-110 TESTED AT [place] [id number] [facility] [address] POCT-GLUCOSE [id number] 17:40:00* Test Item Value Reference Range Comments POC-GLUCOSE METER (BEAKER) (test llmr=8059) 268 mg/dL 70-110 TESTED AT [address] [address] POCT-GLUCOSE [id number] 12:47:00* Test Item Value Reference Range Comments POC-GLUCOSE METER (BEAKER) (test opwc=7288) 209 mg/dL 70-110 TESTED AT [address] [address] POCT-GLUCOSE [id number] 12:35:00* Test Item Value Reference Range Comments POC-GLUCOSE METER (BEAKER) (test bwwk=4551) 137 mg/dL 70-110 TESTED AT [address] [address] BASIC METABOLIC [id number] 07:10:00* Test Item Value Reference Range Comments SODIUM (BEAKER) (test uxmg=666) 133 meq/L 136-145 POTASSIUM (BEAKER) (test seca=523) 5.3 meq/L 3.5-5.1 CHLORIDE (BEAKER) (test tomc=277) 109 meq/L 98-107 CO2 (BEAKER) (test gcgg=307) 16 meq/L 22-29 BLOOD UREA NITROGEN (BEAKER) (test ntwp=799) 49 mg/dL 7-21 CREATININE (BEAKER) (test koft=004) 2.34 mg/dL 0.57-1.25 GLUCOSE RANDOM (BEAKER) (test dxec=069) 131 mg/dL 70-105 CALCIUM (BEAKER) (test plqw=305) 8.8 mg/dL 8.4-10.2 EGFR (BEAKER) (test labx=1436) 29 mL/min/1.73 sq m ESTIMATED GFR IS NOT ACCURATE CREATININE CLEARANCE IN PREDICTING GLOMERULAR FILTRATION RATE. ESTIMATED GFR IS NOT APPLICABLE FOR DIALYSIS PATIENTS. [id number] 06:28:00* Test Item Value Reference Range Comments MAGNESIUM (BEAKER) (test llki=651) 1.5 mg/dL 1.6-2.6 CBC W/PLT COUNT & AUTO [id number] 05:56:00* Test Item Value Reference Range Comments WHITE BLOOD CELL COUNT (BEAKER) (test ghxr=927) 9.1 K/ L 3.5-10.5 RED BLOOD CELL COUNT (BEAKER) (test hnjd=478) 3.71 M/ L 4.63-6.08 HEMOGLOBIN (BEAKER) (test adsv=453) 9.8 GM/DL 13.7-17.5 HEMATOCRIT (BEAKER) (test dzfs=920) 31.5 % 40.1-51.0 MEAN CORPUSCULAR VOLUME (BEAKER) (test ikch=459) 84.9 fL 79.0-92.2 MEAN CORPUSCULAR HEMOGLOBIN (BEAKER) (test gqqz=796) 26.4 pg 25.7-32.2 MEAN CORPUSCULAR HEMOGLOBIN CONC (BEAKER) (test ldhy=536) 31.1 GM/DL 32.3-36.5 RED CELL DISTRIBUTION WIDTH (BEAKER) (test wvaj=029) 16.8 % 11.6-14.4 PLATELET COUNT (BEAKER) (test brqu=426) 295 K/CU MM 150-450 MEAN PLATELET VOLUME (BEAKER) (test ycqb=420) 9.8 fL 9.4-12.4 NUCLEATED RED BLOOD CELLS (BEAKER) (test pvaj=374) 0 /100 WBC 0-0 NEUTROPHILS RELATIVE PERCENT (BEAKER) (test vstp=204) 83 % LYMPHOCYTES RELATIVE PERCENT (BEAKER) (test kbfc=600) 10 % MONOCYTES RELATIVE PERCENT (BEAKER) (test ccru=660) 4 % EOSINOPHILS RELATIVE PERCENT (BEAKER) (test cznb=291) 2 % BASOPHILS RELATIVE PERCENT (BEAKER) (test dker=281) 0 % NEUTROPHILS ABSOLUTE COUNT (BEAKER) (test mgsp=510) 7.47 K/ L 1.78-5.38 LYMPHOCYTES ABSOLUTE COUNT (BEAKER) (test zdtj=691) 0.90 K/ L 1.32-3.57 MONOCYTES ABSOLUTE COUNT (BEAKER) (test zygl=419) 0.40 K/ L 0.30-0.82 EOSINOPHILS ABSOLUTE COUNT (BEAKER) (test glbp=749) 0.22 K/ L 0.04-0.54 BASOPHILS ABSOLUTE COUNT (BEAKER) (test aexv=380) 0.04 K/ L 0.01-0.08 IMMATURE GRANULOCYTES-RELATIVE PERCENT (BEAKER) (test urkw=2781) 0 % 0-1 POCT-GLUCOSE [id number] 00:31:00* Test Item Value Reference Range Comments POC-GLUCOSE METER (BEAKER) (test iaik=4210) 166 mg/dL 70-110 TESTED AT [place] [id number] POCT-GLUCOSE [id number] 18:02:00* Test Item Value Reference Range Comments POC-GLUCOSE METER (BEAKER) (test lbzk=1687) 192 mg/dL 70-110 TESTED AT [place] [id number] STOOL CULTURE + SHIGA [id number] 17:07:00* Test Item Value Reference Range Comments CULTURE (BEAKER) (test qorc=7764) No Salmonella, Shigella or Campylobacter isolated SHIGA TOXIN [id number] 14:24:00* Test Item Value Reference Range Comments SHIGA TOXIN 1 (BEAKER) (test qgeh=7485) Not detected Not detected SHIGA TOXIN 2 (BEAKER) (test dkcf=7248) Not detected Not detected POCT-GLUCOSE [id number] 12:15:00* Test Item Value Reference Range Comments POC-GLUCOSE METER (BEAKER) (test dkzp=7798) 293 mg/dL 70-110 TESTED AT [place] [address] POCT-GLUCOSE [id number] 08:10:00* Test Item Value Reference Range Comments POC-GLUCOSE METER (BEAKER) (test deas=5085) 186 mg/dL 70-110 TESTED AT [place] [address] TROPONIN [id number] 02:37:00* Test Item Value Reference Range Comments TROPONIN I (BEAKER) (test mwpx=048) 0.19 ng/mL 0.00-0.03 Troponin I (TnI) levels must be interpreted in the context of the presenting sym ptoms and the clinical findings. Elevated TnI levels indicate myocardial damage, but are not specific for ischemic heart disease. Elevated TnI levels are seen in patients with other cardiac conditions (including myocarditis and congestive h eart failure), and slight TnI elevations occur in patients with other conditions , including sepsis, renal failure, acidosis, acute neurological disease, and per sistent tachyarrhythmia.BASIC METABOLIC [id number] 02:22:00* Test Item Value Reference Range Comments SODIUM (BEAKER) (test rivj=606) 132 meq/L 136-145 POTASSIUM (BEAKER) (test odrb=659) 5.1 meq/L 3.5-5.1 CHLORIDE (BEAKER) (test ltll=618) 110 meq/L 98-107 CO2 (BEAKER) (test vsed=639) 14 meq/L 22-29 BLOOD UREA NITROGEN (BEAKER) (test tcgk=845) 49 mg/dL 7-21 CREATININE (BEAKER) (test imkh=535) 2.41 mg/dL 0.57-1.25 GLUCOSE RANDOM (BEAKER) (test acrs=713) 154 mg/dL 70-105 CALCIUM (BEAKER) (test qxyd=955) 8.0 mg/dL 8.4-10.2 EGFR (BEAKER) (test hpzx=2427) 28 mL/min/1.73 sq m ESTIMATED GFR IS NOT ACCURATE CREATININE CLEARANCE IN PREDICTING GLOMERULAR FILTRATION RATE. ESTIMATED GFR IS NOT APPLICABLE FOR DIALYSIS PATIENTS. [id number] 02:19:00* Test Item Value Reference Range Comments MAGNESIUM (BEAKER) (test nmkh=517) 1.5 mg/dL 1.6-2.6 CBC W/PLT COUNT & AUTO [id number] 02:15:00* Test Item Value Reference Range Comments WHITE BLOOD CELL COUNT (BEAKER) (test aurm=041) 8.5 K/ L 3.5-10.5 RED BLOOD CELL COUNT (BEAKER) (test sfjd=833) 2.35 M/ L 4.63-6.08 HEMOGLOBIN (BEAKER) (test aftp=445) 6.3 GM/DL 13.7-17.5 HEMATOCRIT (BEAKER) (test mquf=576) 20.3 % 40.1-51.0 MEAN CORPUSCULAR VOLUME (BEAKER) (test cunk=687) 86.4 fL 79.0-92.2 MEAN CORPUSCULAR HEMOGLOBIN (BEAKER) (test xczy=393) 26.8 pg 25.7-32.2 MEAN CORPUSCULAR HEMOGLOBIN CONC (BEAKER) (test oqsm=182) 31.0 GM/DL 32.3-36.5 RED CELL DISTRIBUTION WIDTH (BEAKER) (test bpor=446) 17.2 % 11.6-14.4 PLATELET COUNT (BEAKER) (test ungz=525) 260 K/CU MM 150-450 MEAN PLATELET VOLUME (BEAKER) (test eupa=647) 9.0 fL 9.4-12.4 NUCLEATED RED BLOOD CELLS (BEAKER) (test furp=570) 0 /100 WBC 0-0 NEUTROPHILS RELATIVE PERCENT (BEAKER) (test gpem=257) 84 % LYMPHOCYTES RELATIVE PERCENT (BEAKER) (test syub=849) 9 % MONOCYTES RELATIVE PERCENT (BEAKER) (test qmvh=287) 5 % EOSINOPHILS RELATIVE PERCENT (BEAKER) (test nxzf=562) 0 % BASOPHILS RELATIVE PERCENT (BEAKER) (test qren=044) 1 % NEUTROPHILS ABSOLUTE COUNT (BEAKER) (test fjyy=569) 7.21 K/ L 1.78-5.38 LYMPHOCYTES ABSOLUTE COUNT (BEAKER) (test fkbz=751) 0.75 K/ L 1.32-3.57 MONOCYTES ABSOLUTE COUNT (BEAKER) (test lwqh=159) 0.46 K/ L 0.30-0.82 EOSINOPHILS ABSOLUTE COUNT (BEAKER) (test fpsp=944) 0.03 K/ L 0.04-0.54 BASOPHILS ABSOLUTE COUNT (BEAKER) (test aqrb=450) 0.04 K/ L 0.01-0.08 IMMATURE GRANULOCYTES-RELATIVE PERCENT (BEAKER) (test ekeo=8563) 1 % 0-1 POCT-GLUCOSE [id number] 21:15:00* Test Item Value Reference Range Comments POC-GLUCOSE METER (BEAKER) (test sabq=7760) 158 mg/dL 70-110 TESTED AT [place] [id number] [facility] [address] POCT-GLUCOSE [id number] 18:58:00* Test Item Value Reference Range Comments POC-GLUCOSE METER (BEAKER) (test guad=2535) 130 mg/dL 70-110 TESTED AT [place] [id number] [facility] [address] TROPONIN [id number] 18:01:00* Test Item Value Reference Range Comments TROPONIN I (BEAKER) (test yhph=006) 0.19 ng/mL 0.00-0.03 Troponin I (TnI) levels must be interpreted in the context of the presenting sym ptoms and the clinical findings. Elevated TnI levels indicate myocardial damage, but are not specific for ischemic heart disease. Elevated TnI levels are seen in patients with other cardiac conditions (including myocarditis and congestive h eart failure), and slight TnI elevations occur in patients with other conditions , including sepsis, renal failure, acidosis, acute neurological disease, and per sistent tachyarrhythmia.POCT-GLUCOSE [id number] 17:56:00* Test Item Value Reference Range Comments POC-GLUCOSE METER (BEAKER) (test bcvd=8013) 126 mg/dL 70-110 TESTED AT [facility] [address] [facility] [address] CBC W/PLT COUNT & AUTO [id number] 10:00:00* Test Item Value Reference Range Comments WHITE BLOOD CELL COUNT (BEAKER) (test uesm=951) 13.0 K/ L 3.5-10.5 RED BLOOD CELL COUNT (BEAKER) (test gsls=894) 2.73 M/ L 4.63-6.08 HEMOGLOBIN (BEAKER) (test vdpa=044) 7.3 GM/DL 13.7-17.5 HEMATOCRIT (BEAKER) (test ocny=899) 23.6 % 40.1-51.0 MEAN CORPUSCULAR VOLUME (BEAKER) (test paos=681) 86.4 fL 79.0-92.2 MEAN CORPUSCULAR HEMOGLOBIN (BEAKER) (test tgar=386) 26.7 pg 25.7-32.2 MEAN CORPUSCULAR HEMOGLOBIN CONC (BEAKER) (test pevd=385) 30.9 GM/DL 32.3-36.5 RED CELL DISTRIBUTION WIDTH (BEAKER) (test kmeb=277) 17.2 % 11.6-14.4 PLATELET COUNT (BEAKER) (test owzn=713) 321 K/CU MM 150-450 MEAN PLATELET VOLUME (BEAKER) (test zwpz=913) 10.5 fL 9.4-12.4 NUCLEATED RED BLOOD CELLS (BEAKER) (test nmhl=486) 0 /100 WBC 0-0 NEUTROPHILS RELATIVE PERCENT (BEAKER) (test rjac=298) 85 % LYMPHOCYTES RELATIVE PERCENT (BEAKER) (test zius=555) 8 % MONOCYTES RELATIVE PERCENT (BEAKER) (test ljyq=620) 6 % EOSINOPHILS RELATIVE PERCENT (BEAKER) (test szxg=983) 1 % BASOPHILS RELATIVE PERCENT (BEAKER) (test hleo=076) 0 % NEUTROPHILS ABSOLUTE COUNT (BEAKER) (test cfjb=875) 10.97 K/ L 1.78-5.38 LYMPHOCYTES ABSOLUTE COUNT (BEAKER) (test ihmu=500) 1.03 K/ L 1.32-3.57 MONOCYTES ABSOLUTE COUNT (BEAKER) (test tpgz=781) 0.74 K/ L 0.30-0.82 EOSINOPHILS ABSOLUTE COUNT (BEAKER) (test dpqx=310) 0.09 K/ L 0.04-0.54 BASOPHILS ABSOLUTE COUNT (BEAKER) (test uquf=707) 0.05 K/ L 0.01-0.08 IMMATURE GRANULOCYTES-RELATIVE PERCENT (BEAKER) (test lamc=3439) 1 % 0-1 STOOL PATH [id number] 09:24:00* Test Item Value Reference Range Comments PATHOGEN EXAM CHARGED (BEAKER) (test vtfb=6069) Done RESPIRATORY PANEL [id number] 08:38:00* Test Item Value Reference Range Comments HUMAN METAPNEUMOVIRUS (BEAKER) (test hyjh=3127) Not detected Not detected, Equivocal RHINOVIRUS (BEAKER) (test pqlp=7599) Detected Not detected, Equivocal Assay is not able differentiate between Human Rhinovirus and Enterovirus.Droplet isolation. Contact isolation if young infants. Consider stopping antibiotics. INFLUENZA A (BEAKER) (test ilqj=9507) Not detected Not detected, Equivocal INFLUENZA A (NO SUBTYPE) (test onaj=4401) Not detected, Equivocal INFLUENZA A SUBTYPE H1 (BEAKER) (test zxtx=5545) Not detected, Equivocal INFLUENZA A SUBTYPE H3 (BEAKER) (test kjzq=3806) Not detected, Equivocal INFLUENZA A SUBTYPE H1-2009 (BEAKER) (test xjoa=6601) Not detected, Equivocal INFLUENZA B (BEAKER) (test pjig=9641) Not detected Not detected, Equivocal RESPIRATORY SYNCYTIAL VIRUS (BEAKER) (test fcno=7337) Not detected Not detected, Equivocal PARAINFLUENZA VIRUS 1 (BEAKER) (test uwbh=4782) Not detected Not detected, Equivocal PARAINFLUENZA VIRUS 2 (BEAKER) (test rzcu=3475) Not detected Not detected, Equivocal PARAINFLUENZA VIRUS 3 (BEAKER) (test ebsy=4171) Not detected Not detected, Equivocal PARAINFLUENZA VIRUS 4 (BEAKER) (test bsmo=9943) Not detected Not detected, Equivocal ADENOVIRUS (BEAKER) (test gsqq=3977) Not detected Not detected, Equivocal CORONAVIRUS 229E (BEAKER) (test xkel=7145) Not detected Not detected, Equivocal CORONAVIRUS HKU1 (BEAKER) (test eety=8946) Not detected Not detected, Equivocal CORONAVIRUS NL63 (BEAKER) (test hsvq=9655) Not detected Not detected, Equivocal CORONAVIRUS OC43 (BEAKER) (test ovbz=8072) Not detected Not detected, Equivocal BORDETELLA PERTUSSIS (BEAKER) (test jnkn=0488) Not detected Not detected, Equivocal CHLAMYDOPHILA PNEUMONIAE (BEAKER) (test pras=0915) Not detected Not detected, Equivocal MYCOPLASMA PNEUMONIAE (BEAKER) (test vmgt=7230) Not detected Not detected, Equivocal Other viruses and bacteria not targeted by this PCR panel cannot be excluded; th erefore clinical correlation and follow up of serology, culture results, and oth er molecular studies is required. The results are not intended to be used as the sole means for clinical diagnosis or patient management decisions. This sample was tested at the [facility] using the [employer]piratory Panel. It is FDA cleared and has been verified and approved by the [facility] for clinical use on nasal swab specim ens. It is not FDA-cleared for use on bronchial wash/lavage samples. However, fo r this sample type, validation was performed and test characteristics were deter mined and approved, by [facility] [employer] [facility] for clinical use u nder the Clinical Laboratory Improvement Amendments (CLIA) of 1988 requirements. Therefore, FDA clearance is not required. This laboratory is CLIA-certified and [employer] Pathologists (CAP)-accredited to perform high complexity t esting.TROPONIN [id number] 07:33:00* Test Item Value Reference Range Comments TROPONIN I (JUAN MANUEL) (test elwd=053) 0.24 ng/mL 0.00-0.03 Troponin I (TnI) levels must be interpreted in the context of the presenting sym ptoms and the clinical findings. Elevated TnI levels indicate myocardial damage, but are not specific for ischemic heart disease. Elevated TnI levels are seen in patients with other cardiac conditions (including myocarditis and congestive h eart failure), and slight TnI elevations occur in patients with other conditions , including sepsis, renal failure, acidosis, acute neurological disease, and per sistent tachyarrhythmia.POCT-GLUCOSE [id number] 07:21:00* Test Item Value Reference Range Comments POC-GLUCOSE METER (BEAKER) (test gxmh=5220) 115 mg/dL 70-110 TESTED AT [facility] [address] [facility] [address] POCT-GLUCOSE [id number] 07:21:00* Test Item Value Reference Range Comments POC-GLUCOSE METER (BEAKER) (test uqax=4115) 251 mg/dL 70-110 TESTED AT [facility] [address] [facility] [address] BASIC METABOLIC [id number] 07:18:00* Test Item Value Reference Range Comments SODIUM (BEAKER) (test dtvt=564) 133 meq/L 136-145 POTASSIUM (BEAKER) (test gbmp=037) 5.0 meq/L 3.5-5.1 CHLORIDE (BEAKER) (test kjwk=368) 109 meq/L 98-107 CO2 (BEAKER) (test cuye=491) 15 meq/L 22-29 BLOOD UREA NITROGEN (BEAKER) (test hdwx=367) 55 mg/dL 7-21 CREATININE (BEAKER) (test wrge=513) 2.67 mg/dL 0.57-1.25 GLUCOSE RANDOM (BEAKER) (test uyqv=281) 44 mg/dL 70-105 CALCIUM (BEAKER) (test mmei=070) 8.9 mg/dL 8.4-10.2 EGFR (BEAKER) (test pjiq=9917) 25 mL/min/1.73 sq m ESTIMATED GFR IS NOT ACCURATE CREATININE CLEARANCE IN PREDICTING GLOMERULAR FILTRATION RATE. ESTIMATED GFR IS NOT APPLICABLE FOR DIALYSIS PATIENTS. PT/[id number] 06:51:00* Test Item Value Reference Range Comments PROTIME (BEAKER) (test matw=420) 16.8 seconds 11.7-14.7 INR (BEAKER) (test isfc=599) 1.4 <=5.9 PARTIAL THROMBOPLASTIN TIME (BEAKER) (test lluj=896) 28.5 seconds 22.5-36.0 RECOMMENDED COUMADIN/WARFARIN INR THERAPY RANGESSTANDARD DOSE: 2.0 - 3.0 Inclu elder: PROPHYLAXIS for venous thrombosis, systemic embolization; TREATMENT for harshad ous thrombosis and/or pulmonary embolus.HIGH RISK: Target INR is 2.5-3.5 for pat ients with mechanical heart valves.[id number] 06:47:00* Test Item Value Reference Range Comments MAGNESIUM (BEAKER) (test suwl=970) 1.6 mg/dL 1.6-2.6 HEPATIC FUNCTION [id number] 06:47:00* Test Item Value Reference Range Comments TOTAL PROTEIN (BEAKER) (test gtdg=634) 8.5 gm/dL 6.0-8.3 ALBUMIN (BEAKER) (test bhni=2950) 3.2 g/dL 3.5-5.0 BILIRUBIN TOTAL (BEAKER) (test qhbl=718) 0.5 mg/dL 0.2-1.2 BILIRUBIN DIRECT (BEAKER) (test vvin=955) 0.3 mg/dL 0.1-0.5 ALKALINE PHOSPHATASE (BEAKER) (test vkzq=358) 87 U/L 40-150 AST (SGOT) (BEAKER) (test egba=798) 26 U/L 5-34 ALT (SGPT) (BEAKER) (test aitm=547) 9 U/L 6-55 LACTIC ACID, [id number] 06:20:00* Test Item Value Reference Range Comments LACTATE BLOOD VENOUS (2) (BEAKER) (test dolp=1955) 1.5 mmol/L 0.5-2.2 Specimen moderately hemolyzed TROPONIN [id number] 01:28:00* Test Item Value Reference Range Comments TROPONIN I (BEAKER) (test jrwr=059) 0.30 ng/mL 0.00-0.03 Troponin I (TnI) levels must be interpreted in the context of the presenting sym ptoms and the clinical findings. Elevated TnI levels indicate myocardial damage, but are not specific for ischemic heart disease. Elevated TnI levels are seen in patients with other cardiac conditions (including myocarditis and congestive h eart failure), and slight TnI elevations occur in patients with other conditions , including sepsis, renal failure, acidosis, acute neurological disease, and per sistent tachyarrhythmia.POCT-GLUCOSE [id number] 22:35:00* Test Item Value Reference Range Comments POC-GLUCOSE METER (BEAKER) (test pxzy=9496) 99 mg/dL 70-110 TESTED AT [facility] [address] [facility] [address] POCT-GLUCOSE [id number] 22:15:00* Test Item Value Reference Range Comments POC-GLUCOSE METER (BEAKER) (test chdk=1880) 30 mg/dL 70-110 TESTED AT [facility] [address] [facility] [address] URINALYSIS W/ REFLEX URINE [id number] 19:34:00* Test Item Value Reference Range Comments COLOR (BEAKER) (test ozwu=417) Yellow CLARITY (BEAKER) (test gjui=347) Cloudy SPECIFIC GRAVITY UA (BEAKER) (test bsej=796) 1.013 1.001-1.035 PH UA (BEAKER) (test cilz=909) 6.0 5.0-8.0 PROTEIN UA (BEAKER) (test fznj=247) 100 mg/dL Negative GLUCOSE UA (BEAKER) (test aekb=030) Negative Negative KETONES UA (BEAKER) (test vtql=939) Negative Negative BILIRUBIN UA (BEAKER) (test msza=274) Negative Negative BLOOD UA (BEAKER) (test okmq=457) Moderate Negative NITRITE UA (BEAKER) (test bjpj=793) Negative Negative LEUKOCYTE ESTERASE UA (BEAKER) (test ougs=152) Large Negative UROBILINOGEN UA (BEAKER) (test fqlp=105) 0.2 mg/dL 0.2-1.0 RBC UA (BEAKER) (test olna=542) 60 /HPF WBC UA (BEAKER) (test xvva=019) 1891 /HPF SOURCE(BEAKER) (test nrcz=2597) C. DIFFICILE GDH [id number] 18:30:00* Test Item Value Reference Range Comments CDT TOXIN (test xfpl=[id number]) Negative Negative CDT GDH ANTIGEN (test tprf=[id number]) Negative Negative No indication of Clostridium difficile infection and no colonization. Discontinue enteric isolation and therapy. Testing performed by [employer] Rapid Cassette Assay. For GDH, published sensitivity of the assay is 98.7% compared to cytotoxicity testing. For Toxin AB, published sensitivity is 87.8% and specificity 99.4% compared to cytotoxicity testing.Ve rification of kit performance was done by the [facility] Microbiology Lab prior to cl inical use.RAPID INFLUENZA A&B [id number] 17:52:00* Test Item Value Reference Range Comments RAPID INFLUENZA A AG (BEAKER) (test gnoo=7560) Negative Negative, Inconclusive RAPID INFLUENZA B AG (BEAKER) (test fvfv=1571) Negative Negative, Inconclusive [id number] 17:42:00* Test Item Value Reference Range Comments PROCALCITONIN (BEAKER) (test snsi=3990) 6.93 ng/mL <0.05 SEPSIS RISK (ng/mL)Low: 0.05-0.50Intermediate: 0.51-2.00High: > =2.01POCT-GLUCOSE [id number] 17:27:00* Test Item Value Reference Range Comments POC-GLUCOSE METER (BEAKER) (test qxsm=4338) 77 mg/dL 70-110 TESTED AT [address] [address] RAD, CHEST, 1 VIEW, NON [id number] 17:18:00Reason for exam:->feverShould this be performed at the bedside?->YesFINAL REPORT AP chest HISTORY: Fever COMPARISON: 07/04/2017, 06/29/2017 IMPRESSION:Right chest port. Heart size upper limits of normal. Left lung clear. Faint opacity in the right lung base concerning for pneumonia or asymmetric edema. No effusion or pneumothorax. Signed: Vinod Florian MDRepmiss[facility] Verified Date/Time: 07/18/2018 17:18:20 Reading Location: [address] Radiology Reading Room -LACTIC ACID, [id number] 17:17:00* Test Item Value Reference Range Comments POC-LACTIC ACID, VENOUS (BEAKER) (test rbqe=0039) 2.0 mmol/L 0.9-1.7 TESTED AT [address] [address] TROPONIN [id number] 16:50:00* Test Item Value Reference Range Comments TROPONIN I (BEAKER) (test iwqw=553) 0.48 ng/mL 0.00-0.03 Troponin I (TnI) levels must be interpreted in the context of the presenting sym ptoms and the clinical findings. Elevated TnI levels indicate myocardial damage, but are not specific for ischemic heart disease. Elevated TnI levels are seen in patients with other cardiac conditions (including myocarditis and congestive h eart failure), and slight TnI elevations occur in patients with other conditions , including sepsis, renal failure, acidosis, acute neurological disease, and per sistent tachyarrhythmia.CBC W/PLT COUNT & AUTO [id number] 16:43:00* Test Item Value Reference Range Comments WHITE BLOOD CELL COUNT (BEAKER) (test hold=921) 13.7 K/ L 3.5-10.5 RED BLOOD CELL COUNT (BEAKER) (test uzqr=099) 2.78 M/ L 4.63-6.08 HEMOGLOBIN (BEAKER) (test tmre=982) 7.4 GM/DL 13.7-17.5 HEMATOCRIT (BEAKER) (test uoeh=318) 23.8 % 40.1-51.0 MEAN CORPUSCULAR VOLUME (BEAKER) (test cbqq=958) 85.6 fL 79.0-92.2 MEAN CORPUSCULAR HEMOGLOBIN (BEAKER) (test efap=769) 26.6 pg 25.7-32.2 MEAN CORPUSCULAR HEMOGLOBIN CONC (BEAKER) (test wkou=569) 31.1 GM/DL 32.3-36.5 RED CELL DISTRIBUTION WIDTH (BEAKER) (test qdzp=331) 17.1 % 11.6-14.4 PLATELET COUNT (BEAKER) (test tybm=230) 344 K/CU MM 150-450 MEAN PLATELET VOLUME (BEAKER) (test ejen=834) 9.5 fL 9.4-12.4 NUCLEATED RED BLOOD CELLS (BEAKER) (test jnje=181) 0 /100 WBC 0-0 NEUTROPHILS RELATIVE PERCENT (BEAKER) (test calz=418) 89 % LYMPHOCYTES RELATIVE PERCENT (BEAKER) (test xwvk=609) 4 % MONOCYTES RELATIVE PERCENT (BEAKER) (test nsfk=796) 6 % EOSINOPHILS RELATIVE PERCENT (BEAKER) (test pbul=765) 0 % BASOPHILS RELATIVE PERCENT (BEAKER) (test vssj=111) 0 % NEUTROPHILS ABSOLUTE COUNT (BEAKER) (test nkyz=349) 12.20 K/ L 1.78-5.38 LYMPHOCYTES ABSOLUTE COUNT (BEAKER) (test dvii=415) 0.54 K/ L 1.32-3.57 MONOCYTES ABSOLUTE COUNT (BEAKER) (test gwbg=110) 0.84 K/ L 0.30-0.82 EOSINOPHILS ABSOLUTE COUNT (BEAKER) (test mgfa=533) 0.00 K/ L 0.04-0.54 BASOPHILS ABSOLUTE COUNT (BEAKER) (test sdup=050) 0.04 K/ L 0.01-0.08 IMMATURE GRANULOCYTES-RELATIVE PERCENT (BEAKER) (test hydy=8353) 1 % 0-1 BASIC METABOLIC [id number] 16:39:00* Test Item Value Reference Range Comments SODIUM (BEAKER) (test xrma=512) 133 meq/L 136-145 POTASSIUM (BEAKER) (test dgjy=942) 5.1 meq/L 3.5-5.1 CHLORIDE (BEAKER) (test lpwm=264) 105 meq/L 98-107 CO2 (BEAKER) (test biky=938) 17 meq/L 22-29 BLOOD UREA NITROGEN (BEAKER) (test pyde=443) 59 mg/dL 7-21 CREATININE (BEAKER) (test nhht=275) 3.26 mg/dL 0.57-1.25 GLUCOSE RANDOM (BEAKER) (test xbbo=843) 67 mg/dL 70-105 CALCIUM (BEAKER) (test kqnd=376) 9.1 mg/dL 8.4-10.2 EGFR (BEAKER) (test bvws=8925) 19 mL/min/1.73 sq m ESTIMATED GFR IS NOT ACCURATE CREATININE CLEARANCE IN PREDICTING GLOMERULAR FILTRATION RATE. ESTIMATED GFR IS NOT APPLICABLE FOR DIALYSIS PATIENTS. HEPATIC FUNCTION [id number] 16:34:00* Test Item Value Reference Range Comments TOTAL PROTEIN (BEAKER) (test nfzf=815) 8.6 gm/dL 6.0-8.3 ALBUMIN (BEAKER) (test hnfw=9017) 3.2 g/dL 3.5-5.0 BILIRUBIN TOTAL (BEAKER) (test vpdo=597) 0.6 mg/dL 0.2-1.2 BILIRUBIN DIRECT (BEAKER) (test npij=678) 0.4 mg/dL 0.1-0.5 ALKALINE PHOSPHATASE (BEAKER) (test ykbe=712) 91 U/L 40-150 AST (SGOT) (BEAKER) (test esdw=989) 21 U/L 5-34 ALT (SGPT) (BEAKER) (test frma=613) 8 U/L 6-55 PROTHROMBIN [id number] 16:25:00* Test Item Value Reference Range Comments PROTIME (BEAKER) (test scby=250) 18.0 seconds 11.7-14.7 INR (BEAKER) (test icks=061) 1.5 <=5.9 RECOMMENDED COUMADIN/WARFARIN INR THERAPY RANGESSTANDARD DOSE: 2.0 - 3.0 Inclu elder: PROPHYLAXIS for venous thrombosis, systemic embolization; TREATMENT for harshad ous thrombosis and/or pulmonary embolus.HIGH RISK: Target INR is 2.5-3.5 for pat ients with mechanical heart valves.POCT-GLUCOSE [id number] 15:51:00* Test Item Value Reference Range Comments POC-GLUCOSE METER (JUAN MANUEL) (test biak=9294) 87 mg/dL 70-110 TESTED AT [place] [id number] [facility] [address] POCT-GLUCOSE [id number] 15:23:00* Test Item Value Reference Range Comments POC-GLUCOSE METER (JUAN MANUEL) (test whny=8319) 43 mg/dL 70-110 TESTED AT [place] [id number] [facility] [address] BLOOD [id number] 14:01:00* Test Item Value Reference Range Comments CULTURE (BEAKER) (test zgyl=6241) No growth in 5 days BLOOD [id number] 14:01:00* Test Item Value Reference Range Comments CULTURE (BEAKER) (test gupp=9558) No growth in 5 days ANG, NEPHROSTOGRAM, INDWELLING CATH, EXISTING [id number] 19:03:00Reason for exam:->Evaluation for continued necessity of L PCN; if no obstruction please discontinue L PCN; If still evidence of obstruction then please exchange PCN FINAL REPORT Nephrostogram with removal of left nephrour eteral stent. History: History of urinary obs truction. Concern for infection. Request is for nephrostogram with removal of ca theter if there is no evidence of obstruction.. Modality: Fluoroscopy Sedation: None Anesthesia: Two percent Lidocaine without epinephrine. Approach: Existing left percutaneous nephroureterostomy catheter Estimated blood loss: < 5 cc. Specimen: None. dishtank operator: Jackson Hagen MD. Mixer Attendant: Wu. Tosha feltonroscopy Time: 0.9 min.Reference Air Kerma (Ka, r): 3.5 mGy. Technique: Inform ed written consent was obtained. Discussion of risks, benefits, and alternatives were made with the patient. The patient expressed understanding and agreed to p roceed. A universal timeout was performed prior to starting the procedure. All elements maximal sterile barrier technique was utilized for this procedure, inc luding utilization of sterile scrub solution for skin prep, a large sterile shee t to cover the areas of the patient that were not prepped, and hand hygiene, mas k, head covering, and sterile gown for performing radiologist and scrub technolo gist.A spot fluoroscopic radiograph of the patient's abdomen was obtained which demonstrated that the patient had a left percutaneous nephroureteral stent, not a percutaneous nephrostomy catheter. The catheter was severed and a Amplatz guid ewire was inserted through the catheter into the bladder. The catheter was then removed over the Amplatz wire. A sheath was then placed over the wire and into t he renal pelvis. An antegrade nephrostogram was performed through the sheath whi ch demonstrated no evidence of obstruction with free flow of contrast into the b ladder. The wire and sheath were then removed. Impression: Antegrade nephrostogram demonstrates no evidence of obstruction. The n ephroureterostomy catheter was removed. Signed: Matthias Hagen MDReport Verified Date/Time: 07/09/2018 19:03:49 Reading Location: [place] [address] Angio Body Reading Room D [id number] 08:01:00* Test Item Value Reference Range Comments CULTURE (BEAKER) (test cdvb=6478) No growth in 5 days POCT-GLUCOSE [id number] 12:19:00* Test Item Value Reference Range Comments POC-GLUCOSE METER (BEAKER) (test kmqd=8765) 195 mg/dL 70-110 TESTED AT [facility] [address] [facility] [address] POCT-GLUCOSE [id number] 07:59:00* Test Item Value Reference Range Comments POC-GLUCOSE METER (BEAKER) (test jcai=8110) 116 mg/dL 70-110 TESTED AT [facility] [address] [facility] [address] [id number] 06:38:00* Test Item Value Reference Range Comments MAGNESIUM (BEAKER) (test dbmk=784) 1.8 mg/dL 1.6-2.6 BASIC METABOLIC [id number] 06:38:00* Test Item Value Reference Range Comments SODIUM (BEAKER) (test vuwt=437) 137 meq/L 136-145 POTASSIUM (BEAKER) (test pyiv=819) 4.3 meq/L 3.5-5.1 CHLORIDE (BEAKER) (test xrut=750) 109 meq/L 98-107 CO2 (BEAKER) (test nccw=473) 20 meq/L 22-29 BLOOD UREA NITROGEN (BEAKER) (test ojor=428) 24 mg/dL 7-21 CREATININE (BEAKER) (test ssop=329) 1.38 mg/dL 0.57-1.25 GLUCOSE RANDOM (BEAKER) (test xyek=295) 104 mg/dL 70-105 CALCIUM (BEAKER) (test cbve=231) 8.6 mg/dL 8.4-10.2 EGFR (BEAKER) (test netu=8988) 53 mL/min/1.73 sq m ESTIMATED GFR IS NOT ACCURATE CREATININE CLEARANCE IN PREDICTING GLOMERULAR FILTRATION RATE. ESTIMATED GFR IS NOT APPLICABLE FOR DIALYSIS PATIENTS. CBC W/PLT COUNT & AUTO [id number] 06:17:00* Test Item Value Reference Range Comments WHITE BLOOD CELL COUNT (BEAKER) (test bdng=675) 6.4 K/ L 3.5-10.5 RED BLOOD CELL COUNT (BEAKER) (test mmpt=237) 3.26 M/ L 4.63-6.08 HEMOGLOBIN (BEAKER) (test mkpu=309) 8.7 GM/DL 13.7-17.5 HEMATOCRIT (BEAKER) (test eipm=001) 27.9 % 40.1-51.0 MEAN CORPUSCULAR VOLUME (BEAKER) (test mjwm=495) 85.6 fL 79.0-92.2 MEAN CORPUSCULAR HEMOGLOBIN (BEAKER) (test wwcf=911) 26.7 pg 25.7-32.2 MEAN CORPUSCULAR HEMOGLOBIN CONC (BEAKER) (test odwx=343) 31.2 GM/DL 32.3-36.5 RED CELL DISTRIBUTION WIDTH (BEAKER) (test lruf=060) 16.7 % 11.6-14.4 PLATELET COUNT (BEAKER) (test drjl=497) 360 K/CU MM 150-450 MEAN PLATELET VOLUME (BEAKER) (test tgtj=187) 9.6 fL 9.4-12.4 NUCLEATED RED BLOOD CELLS (BEAKER) (test gpmd=773) 0 /100 WBC 0-0 NEUTROPHILS RELATIVE PERCENT (BEAKER) (test lxkb=820) 66 % LYMPHOCYTES RELATIVE PERCENT (BEAKER) (test zvnf=887) 18 % MONOCYTES RELATIVE PERCENT (BEAKER) (test lvmv=699) 8 % EOSINOPHILS RELATIVE PERCENT (BEAKER) (test lngp=946) 8 % BASOPHILS RELATIVE PERCENT (BEAKER) (test suxp=853) 1 % NEUTROPHILS ABSOLUTE COUNT (BEAKER) (test xqxq=724) 4.16 K/ L 1.78-5.38 LYMPHOCYTES ABSOLUTE COUNT (BEAKER) (test yxnq=730) 1.13 K/ L 1.32-3.57 MONOCYTES ABSOLUTE COUNT (BEAKER) (test okcz=447) 0.49 K/ L 0.30-0.82 EOSINOPHILS ABSOLUTE COUNT (BEAKER) (test zfeu=000) 0.50 K/ L 0.04-0.54 BASOPHILS ABSOLUTE COUNT (BEAKER) (test ulfo=767) 0.05 K/ L 0.01-0.08 IMMATURE GRANULOCYTES-RELATIVE PERCENT (BEAKER) (test amov=0908) 0 % 0-1 POCT-GLUCOSE [id number] 21:50:00* Test Item Value Reference Range Comments POC-GLUCOSE METER (BEAKER) (test pylr=4311) 274 mg/dL 70-110 TESTED AT [facility] [address] [facility] [address] POCT-GLUCOSE [id number] 17:55:00* Test Item Value Reference Range Comments POC-GLUCOSE METER (BEAKER) (test rylb=3886) 121 mg/dL 70-110 TESTED AT [facility] [address] [facility] [address] POCT-GLUCOSE [id number] 12:31:00* Test Item Value Reference Range Comments POC-GLUCOSE METER (BEAKER) (test qdoa=5693) 265 mg/dL 70-110 TESTED AT [facility] [address] [facility] [address] BLOOD [id number] 06:27:00* Test Item Value Reference Range Comments CULTURE (BEAKER) (test jcsh=6131) KLEBSIELLA PNEUMONIAE From Anaerobic Bottle Only Klebsiella pneumoniae Amikacin (test code=1) Ampicillin + Sulbactam (test code=6) Aztreonam (test code=32) Cefepime (test code=51) Cefoxitin (test code=68) Ceftazidime (test code=27) Ceftriaxone (test code=52) Ertapenem (test code=38) Gentamicin (test code=18) Levofloxacin (test code=22) Meropenem (test code=34) Nitrofurantoin (test code=23) Piperacillin + Tazobactam (test code=29) Tetracycline (test code=2) Tobramycin (test code=25) Trimethoprim + Sulfamethoxazole (test code=47) GRAM STAIN RESULT (BEAKER) (test jvnv=5784) From anaerobic bottle only: gram negative rods [id number] 05:39:00* Test Item Value Reference Range Comments MAGNESIUM (BEAKER) (test faqg=755) 1.9 mg/dL 1.6-2.6 BASIC METABOLIC [id number] 05:39:00* Test Item Value Reference Range Comments SODIUM (BEAKER) (test jtri=645) 135 meq/L 136-145 POTASSIUM (BEAKER) (test jtut=681) 4.1 meq/L 3.5-5.1 CHLORIDE (BEAKER) (test zxop=728) 107 meq/L 98-107 CO2 (BEAKER) (test wylh=378) 20 meq/L 22-29 BLOOD UREA NITROGEN (BEAKER) (test uaiv=488) 22 mg/dL 7-21 CREATININE (BEAKER) (test xwuj=303) 1.29 mg/dL 0.57-1.25 GLUCOSE RANDOM (BEAKER) (test delk=080) 153 mg/dL 70-105 CALCIUM (BEAKER) (test ncjm=798) 8.4 mg/dL 8.4-10.2 EGFR (BEAKER) (test ulbe=9793) 57 mL/min/1.73 sq m ESTIMATED GFR IS NOT ACCURATE CREATININE CLEARANCE IN PREDICTING GLOMERULAR FILTRATION RATE. ESTIMATED GFR IS NOT APPLICABLE FOR DIALYSIS PATIENTS. CBC W/PLT COUNT & AUTO [id number] 04:36:00* Test Item Value Reference Range Comments WHITE BLOOD CELL COUNT (BEAKER) (test mukv=795) 7.0 K/ L 3.5-10.5 RED BLOOD CELL COUNT (BEAKER) (test dbyj=006) 3.01 M/ L 4.63-6.08 HEMOGLOBIN (BEAKER) (test fvpn=750) 7.9 GM/DL 13.7-17.5 HEMATOCRIT (BEAKER) (test omlc=037) 26.0 % 40.1-51.0 MEAN CORPUSCULAR VOLUME (BEAKER) (test xhbz=694) 86.4 fL 79.0-92.2 MEAN CORPUSCULAR HEMOGLOBIN (BEAKER) (test ocgo=517) 26.2 pg 25.7-32.2 MEAN CORPUSCULAR HEMOGLOBIN CONC (BEAKER) (test lvlb=023) 30.4 GM/DL 32.3-36.5 RED CELL DISTRIBUTION WIDTH (BEAKER) (test bsjw=953) 17.2 % 11.6-14.4 PLATELET COUNT (BEAKER) (test zwmr=270) 305 K/CU MM 150-450 MEAN PLATELET VOLUME (BEAKER) (test faep=891) 9.5 fL 9.4-12.4 NUCLEATED RED BLOOD CELLS (BEAKER) (test zwui=895) 0 /100 WBC 0-0 NEUTROPHILS RELATIVE PERCENT (BEAKER) (test jpgo=370) 71 % LYMPHOCYTES RELATIVE PERCENT (BEAKER) (test tyqv=658) 16 % MONOCYTES RELATIVE PERCENT (BEAKER) (test mykq=534) 7 % EOSINOPHILS RELATIVE PERCENT (BEAKER) (test cyhc=840) 5 % BASOPHILS RELATIVE PERCENT (BEAKER) (test okmk=611) 0 % NEUTROPHILS ABSOLUTE COUNT (BEAKER) (test ucok=600) 4.95 K/ L 1.78-5.38 LYMPHOCYTES ABSOLUTE COUNT (BEAKER) (test nfux=155) 1.14 K/ L 1.32-3.57 MONOCYTES ABSOLUTE COUNT (BEAKER) (test iaer=942) 0.52 K/ L 0.30-0.82 EOSINOPHILS ABSOLUTE COUNT (BEAKER) (test zytu=289) 0.32 K/ L 0.04-0.54 BASOPHILS ABSOLUTE COUNT (BEAKER) (test kobn=726) 0.03 K/ L 0.01-0.08 IMMATURE GRANULOCYTES-RELATIVE PERCENT (BEAKER) (test ogbx=2763) 0 % 0-1 POCT-GLUCOSE [id number] 21:35:00* Test Item Value Reference Range Comments POC-GLUCOSE METER (BEAKER) (test kkmk=3409) 199 mg/dL 70-110 TESTED AT [address] [address] HEMOGLOBIN AND [id number] 20:19:00* Test Item Value Reference Range Comments HEMOGLOBIN (BEAKER) (test ifsp=211) 9.2 GM/DL 13.7-17.5 HEMATOCRIT (BEAKER) (test eokv=323) 29.7 % 40.1-51.0 POCT-GLUCOSE [id number] 17:04:00* Test Item Value Reference Range Comments POC-GLUCOSE METER (BEAKER) (test gzej=3379) 205 mg/dL 70-110 TESTED AT [address] [address] POCT-GLUCOSE [id number] 12:29:00* Test Item Value Reference Range Comments POC-GLUCOSE METER (BEAKER) (test cbwr=2936) 256 mg/dL 70-110 TESTED AT [address] [address] [id number] 05:07:00* Test Item Value Reference Range Comments MAGNESIUM (BEAKER) (test gjfy=152) 2.2 mg/dL 1.6-2.6 BASIC METABOLIC [id number] 05:07:00* Test Item Value Reference Range Comments SODIUM (BEAKER) (test ykck=507) 135 meq/L 136-145 POTASSIUM (BEAKER) (test picf=708) 4.1 meq/L 3.5-5.1 CHLORIDE (BEAKER) (test cinr=059) 106 meq/L 98-107 CO2 (BEAKER) (test tifu=125) 21 meq/L 22-29 BLOOD UREA NITROGEN (BEAKER) (test ypsv=829) 20 mg/dL 7-21 CREATININE (BEAKER) (test xaly=781) 1.40 mg/dL 0.57-1.25 GLUCOSE RANDOM (BEAKER) (test tuuh=897) 118 mg/dL 70-105 CALCIUM (BEAKER) (test otyw=430) 8.4 mg/dL 8.4-10.2 EGFR (BEAKER) (test czpg=5455) 52 mL/min/1.73 sq m ESTIMATED GFR IS NOT ACCURATE CREATININE CLEARANCE IN PREDICTING GLOMERULAR FILTRATION RATE. ESTIMATED GFR IS NOT APPLICABLE FOR DIALYSIS PATIENTS. LACTIC ACID, [id number] 04:46:00* Test Item Value Reference Range Comments LACTATE BLOOD VENOUS (2) (BEAKER) (test drzv=9399) 0.6 mmol/L 0.5-2.2 CBC W/PLT COUNT & AUTO [id number] 04:32:00* Test Item Value Reference Range Comments WHITE BLOOD CELL COUNT (BEAKER) (test lsmf=337) 8.4 K/ L 3.5-10.5 RED BLOOD CELL COUNT (BEAKER) (test upgh=233) 3.11 M/ L 4.63-6.08 HEMOGLOBIN (BEAKER) (test eipl=923) 8.2 GM/DL 13.7-17.5 HEMATOCRIT (BEAKER) (test prof=240) 26.8 % 40.1-51.0 MEAN CORPUSCULAR VOLUME (BEAKER) (test ijqq=028) 86.2 fL 79.0-92.2 MEAN CORPUSCULAR HEMOGLOBIN (BEAKER) (test pkel=411) 26.4 pg 25.7-32.2 MEAN CORPUSCULAR HEMOGLOBIN CONC (BEAKER) (test hkxh=697) 30.6 GM/DL 32.3-36.5 RED CELL DISTRIBUTION WIDTH (BEAKER) (test fzpm=960) 17.2 % 11.6-14.4 PLATELET COUNT (BEAKER) (test acgw=946) 277 K/CU MM 150-450 MEAN PLATELET VOLUME (BEAKER) (test fjwr=841) 9.3 fL 9.4-12.4 NUCLEATED RED BLOOD CELLS (BEAKER) (test vqkp=946) 0 /100 WBC 0-0 NEUTROPHILS RELATIVE PERCENT (BEAKER) (test gdgw=645) 80 % LYMPHOCYTES RELATIVE PERCENT (BEAKER) (test ngfg=288) 10 % MONOCYTES RELATIVE PERCENT (BEAKER) (test dzae=617) 6 % EOSINOPHILS RELATIVE PERCENT (BEAKER) (test udlg=443) 4 % BASOPHILS RELATIVE PERCENT (BEAKER) (test qgeg=309) 0 % NEUTROPHILS ABSOLUTE COUNT (BEAKER) (test zeye=396) 6.69 K/ L 1.78-5.38 LYMPHOCYTES ABSOLUTE COUNT (BEAKER) (test vcyh=740) 0.80 K/ L 1.32-3.57 MONOCYTES ABSOLUTE COUNT (BEAKER) (test fisl=200) 0.51 K/ L 0.30-0.82 EOSINOPHILS ABSOLUTE COUNT (BEAKER) (test suzy=246) 0.31 K/ L 0.04-0.54 BASOPHILS ABSOLUTE COUNT (BEAKER) (test chut=447) 0.02 K/ L 0.01-0.08 IMMATURE GRANULOCYTES-RELATIVE PERCENT (BEAKER) (test remt=7998) 1 % 0-1 BLOOD CULTURE IDENTIFICATION [id number] 01:06:00* Test Item Value Reference Range Comments LISTERIA MONOCYTOGENES (test ibxg=[id number]) Not detected Not detected STAPHYLOCOCCUS (test vmyo=[id number]) Not detected Not detected STAPHYLOCOCCUS AUREUS (test zwbm=[id number]) Not detected Not detected STREPTOCOCCUS (test ydhs=[id number]) Not detected Not detected STREPTOCOCCUS AGALACTIAE (GROUP B) (test ellt=7758428) Not detected Not detected STREPTOCOCCUS PNEUMONIAE (test vvfx=9640264) Not detected Not detected STREPTOCOCCUS PYOGENES (GROUP A) (test bpqb=4305838) Not detected Not detected ACINETOBACTER BAUMANNII (test tqde=2105502) Not detected Not detected HAEMOPHILUS INFLUENZAE (test heqi=6261509) Not detected Not detected NEISSERIA MENINGITIDIS (test ayja=4527947) Not detected Not detected ENTEROBACTERIACEAE (test huhf=2550714) Detected Not detected ENTEROBACTER CLOACOE COMPLEX (test wnjx=6140565) Not detected Not detected KLEBSIELLA OXYTOCA (test zkji=9988786) Not detected Not detected KLEBSIELLA PNEUMONIAE (test prcl=6326) Detected Not detected First line therapy: Meropenem. De-escalate based on susceptibilitiesThis test does not evaluate for ESBLReference Range: Not Detected PROTEUS (test nmga=9093964) Not detected Not detected SERRATIA MARCESCENS (test qlre=5684585) Not detected Not detected ERIC ALBICANS (test jpqd=8013419) Not detected Not detected REIC GLABRATA (test xopc=2519690) Not detected Not detected ERIC KRUSEI (test dqax=8393774) Not detected Not detected ERIC PARAPSILOSIS (test qzru=1508521) Not detected Not detected ERIC TROPICALIS (test zcvu=4791126) Not detected Not detected ESCHERICHIA COLI (test yzfy=9523571) Not detected Not detected METHICILLIN-RESISTANCE GENE (test qqjg=9280041) Not detected VANCOMYCIN-RESISTANCE GENE (test spjo=8734608) Not detected CARBAPENEM-RESISTANCE GENE (test gboy=2923088) Not detected Not detected ENTEROCOCCUS-BEAKER (test wgfl=4033309) Not detected Not detected PSEUDOMONAS AERUGINOSA-BEAKER (test suzp=8940317) Not detected Not detected Other bacteria and resistance markers not targeted by this PCR panel cannot be e xcluded; therefore clinical correlation and follow up of serology, culture resul ts, and other molecular studies is required. The results are not intended to be used as the sole means for clinical diagnosis or patient management decisions. T his sample was tested at the [facility] using the [employer] Blood Culture ID Panel. It is FDA cleared and has been verified and approved by the [facility] for clinical use. Thi s laboratory is CLIA-certified and [employer] ([employer])-accred ited to perform high complexity testing.POCT-GLUCOSE [id number] 21:31:00* Test Item Value Reference Range Comments POC-GLUCOSE METER (BEAKER) (test izda=9424) 255 mg/dL 70-110 TESTED AT [facility] [address] [facility] [address] POCT-GLUCOSE [id number] 18:20:00* Test Item Value Reference Range Comments POC-GLUCOSE METER (BEAKER) (test pgzz=6167) 161 mg/dL 70-110 TESTED AT [facility] [address] [facility] [address] TROPONIN [id number] 12:26:00* Test Item Value Reference Range Comments TROPONIN I (BEAKER) (test udvg=700) 0.14 ng/mL 0.00-0.03 Troponin I (TnI) levels must be interpreted in the context of the presenting sym ptoms and the clinical findings. Elevated TnI levels indicate myocardial damage, but are not specific for ischemic heart disease. Elevated TnI levels are seen in patients with other cardiac conditions (including myocarditis and congestive h eart failure), and slight TnI elevations occur in patients with other conditions , including sepsis, renal failure, acidosis, acute neurological disease, and per sistent tachyarrhythmia.POCT-GLUCOSE [id number] 11:32:00* Test Item Value Reference Range Comments POC-GLUCOSE METER (BEAKER) (test htfd=9352) 181 mg/dL 70-110 TESTED AT [facility] [address] [facility] [address] [id number] 08:25:00* Test Item Value Reference Range Comments MAGNESIUM (BEAKER) (test zcaa=376) 1.8 mg/dL 1.6-2.6 BASIC METABOLIC [id number] 08:25:00* Test Item Value Reference Range Comments SODIUM (BEAKER) (test praj=513) 134 meq/L 136-145 POTASSIUM (BEAKER) (test xqio=073) 4.6 meq/L 3.5-5.1 CHLORIDE (BEAKER) (test gyvr=019) 105 meq/L 98-107 CO2 (BEAKER) (test wpbe=188) 22 meq/L 22-29 BLOOD UREA NITROGEN (BEAKER) (test jpok=718) 21 mg/dL 7-21 CREATININE (BEAKER) (test mkwj=943) 1.60 mg/dL 0.57-1.25 GLUCOSE RANDOM (BEAKER) (test osdx=516) 160 mg/dL 70-105 CALCIUM (BEAKER) (test xxrx=256) 8.3 mg/dL 8.4-10.2 EGFR (BEAKER) (test lqyk=4862) 44 mL/min/1.73 sq m ESTIMATED GFR IS NOT ACCURATE CREATININE CLEARANCE IN PREDICTING GLOMERULAR FILTRATION RATE. ESTIMATED GFR IS NOT APPLICABLE FOR DIALYSIS PATIENTS. POCT-GLUCOSE [id number] 08:16:00* Test Item Value Reference Range Comments POC-GLUCOSE METER (BEAKER) (test qhgk=1008) 174 mg/dL 70-110 TESTED AT [address] [address] MISCELLANEOUS LAB [id number] 08:02:00* Test Item Value Reference Range Comments SCAN RESULT (test osqm=[id number]) TROPONIN [id number] 06:26:00* Test Item Value Reference Range Comments TROPONIN I (BEAKER) (test asop=140) 0.16 ng/mL 0.00-0.03 Troponin I (TnI) levels must be interpreted in the context of the presenting sym ptoms and the clinical findings. Elevated TnI levels indicate myocardial damage, but are not specific for ischemic heart disease. Elevated TnI levels are seen in patients with other cardiac conditions (including myocarditis and congestive h eart failure), and slight TnI elevations occur in patients with other conditions , including sepsis, renal failure, acidosis, acute neurological disease, and per sistent tachyarrhythmia.[id number] 04:02:00* Test Item Value Reference Range Comments PROCALCITONIN (BEAKER) (test xgnr=4462) 0.20 ng/mL <0.05 SEPSIS RISK (ng/mL)Low: 0.05-0.50Intermediate: 0.51-2.00High: > =2.01URINALYSIS W/ REFLEX URINE [id number] 02:30:00* Test Item Value Reference Range Comments COLOR (BEAKER) (test myyt=305) Yellow CLARITY (BEAKER) (test xeqt=663) Cloudy SPECIFIC GRAVITY UA (BEAKER) (test ugag=867) 1.013 1.001-1.035 PH UA (BEAKER) (test axrc=742) 6.5 5.0-8.0 PROTEIN UA (BEAKER) (test hsxh=223) 300 mg/dL Negative GLUCOSE UA (BEAKER) (test nivp=933) Negative Negative KETONES UA (BEAKER) (test afml=152) Negative Negative BILIRUBIN UA (BEAKER) (test sita=378) Negative Negative BLOOD UA (BEAKER) (test exev=661) Moderate Negative NITRITE UA (BEAKER) (test wxft=887) Positive Negative LEUKOCYTE ESTERASE UA (BEAKER) (test otbz=278) Large Negative UROBILINOGEN UA (BEAKER) (test yyfg=066) 0.2 mg/dL 0.2-1.0 RBC UA (BEAKER) (test fsmx=727) 138 /HPF WBC UA (BEAKER) (test ownc=877) 3249 /HPF Wbc clumps seen BACTERIA (BEAKER) (test hwkw=764) Many YEAST (BEAKER) (test vekk=5357) Few Budding yeast seen SOURCE(BEAKER) (test wwib=9644) [id number] 01:59:00* Test Item Value Reference Range Comments MAGNESIUM (BEAKER) (test gecy=480) 2.1 mg/dL 1.6-2.6 BASIC METABOLIC [id number] 01:59:00* Test Item Value Reference Range Comments SODIUM (BEAKER) (test mrsu=865) 132 meq/L 136-145 POTASSIUM (BEAKER) (test gats=770) 4.5 meq/L 3.5-5.1 CHLORIDE (BEAKER) (test ndbx=708) 103 meq/L 98-107 CO2 (BEAKER) (test waxh=064) 21 meq/L 22-29 BLOOD UREA NITROGEN (BEAKER) (test suox=426) 22 mg/dL 7-21 CREATININE (BEAKER) (test dqqu=202) 1.68 mg/dL 0.57-1.25 GLUCOSE RANDOM (BEAKER) (test qmif=397) 166 mg/dL 70-105 CALCIUM (BEAKER) (test nopx=953) 8.3 mg/dL 8.4-10.2 EGFR (BEAKER) (test vciq=2175) 42 mL/min/1.73 sq m ESTIMATED GFR IS NOT ACCURATE CREATININE CLEARANCE IN PREDICTING GLOMERULAR FILTRATION RATE. ESTIMATED GFR IS NOT APPLICABLE FOR DIALYSIS PATIENTS. TROPONIN [id number] 01:50:00* Test Item Value Reference Range Comments TROPONIN I (BEAKER) (test dqun=360) 0.12 ng/mL 0.00-0.03 Troponin I (TnI) levels must be interpreted in the context of the presenting sym ptoms and the clinical findings. Elevated TnI levels indicate myocardial damage, but are not specific for ischemic heart disease. Elevated TnI levels are seen in patients with other cardiac conditions (including myocarditis and congestive h eart failure), and slight TnI elevations occur in patients with other conditions , including sepsis, renal failure, acidosis, acute neurological disease, and per sistent tachyarrhythmia.[id number] 01:42:00* Test Item Value Reference Range Comments MAGNESIUM (BEAKER) (test dhmc=692) 2.1 mg/dL 1.6-2.6 BASIC METABOLIC [id number] 01:42:00* Test Item Value Reference Range Comments SODIUM (BEAKER) (test zrzn=464) 132 meq/L 136-145 POTASSIUM (BEAKER) (test yvvx=692) 4.8 meq/L 3.5-5.1 CHLORIDE (BEAKER) (test yjyh=106) 102 meq/L 98-107 CO2 (BEAKER) (test tcif=061) 21 meq/L 22-29 BLOOD UREA NITROGEN (BEAKER) (test xgff=482) 22 mg/dL 7-21 CREATININE (BEAKER) (test rmuq=750) 1.61 mg/dL 0.57-1.25 GLUCOSE RANDOM (BEAKER) (test yppc=774) 160 mg/dL 70-105 CALCIUM (BEAKER) (test bfhg=692) 8.4 mg/dL 8.4-10.2 EGFR (BEAKER) (test ujqe=9092) 44 mL/min/1.73 sq m ESTIMATED GFR IS NOT ACCURATE CREATININE CLEARANCE IN PREDICTING GLOMERULAR FILTRATION RATE. ESTIMATED GFR IS NOT APPLICABLE FOR DIALYSIS PATIENTS. LACTIC ACID, [id number] 01:38:00* Test Item Value Reference Range Comments LACTATE BLOOD VENOUS (2) (BEAKER) (test asfx=7282) 1.0 mmol/L 0.5-2.2 CBC W/PLT COUNT & AUTO [id number] 01:37:00* Test Item Value Reference Range Comments WHITE BLOOD CELL COUNT (BEAKER) (test gjyg=186) 12.7 K/ L 3.5-10.5 RED BLOOD CELL COUNT (BEAKER) (test seqm=559) 3.11 M/ L 4.63-6.08 HEMOGLOBIN (BEAKER) (test nirj=318) 8.4 GM/DL 13.7-17.5 HEMATOCRIT (BEAKER) (test mcli=691) 26.3 % 40.1-51.0 MEAN CORPUSCULAR VOLUME (BEAKER) (test gdwm=268) 84.6 fL 79.0-92.2 MEAN CORPUSCULAR HEMOGLOBIN (BEAKER) (test mkzf=649) 27.0 pg 25.7-32.2 MEAN CORPUSCULAR HEMOGLOBIN CONC (BEAKER) (test bqfr=873) 31.9 GM/DL 32.3-36.5 RED CELL DISTRIBUTION WIDTH (BEAKER) (test oqun=627) 16.9 % 11.6-14.4 PLATELET COUNT (BEAKER) (test fifd=901) 282 K/CU MM 150-450 MEAN PLATELET VOLUME (BEAKER) (test fwve=615) 9.7 fL 9.4-12.4 NUCLEATED RED BLOOD CELLS (BEAKER) (test fzev=828) 0 /100 WBC 0-0 NEUTROPHILS RELATIVE PERCENT (BEAKER) (test fvod=566) 92 % LYMPHOCYTES RELATIVE PERCENT (BEAKER) (test yiip=278) 3 % MONOCYTES RELATIVE PERCENT (BEAKER) (test epyf=091) 3 % EOSINOPHILS RELATIVE PERCENT (BEAKER) (test zfty=877) 1 % BASOPHILS RELATIVE PERCENT (BEAKER) (test txst=381) 0 % NEUTROPHILS ABSOLUTE COUNT (BEAKER) (test frwc=850) 11.59 K/ L 1.78-5.38 LYMPHOCYTES ABSOLUTE COUNT (BEAKER) (test pzhp=773) 0.41 K/ L 1.32-3.57 MONOCYTES ABSOLUTE COUNT (BEAKER) (test vgln=489) 0.43 K/ L 0.30-0.82 EOSINOPHILS ABSOLUTE COUNT (BEAKER) (test cdua=381) 0.12 K/ L 0.04-0.54 BASOPHILS ABSOLUTE COUNT (BEAKER) (test ioch=860) 0.03 K/ L 0.01-0.08 IMMATURE GRANULOCYTES-RELATIVE PERCENT (BEAKER) (test qgis=9470) 1 % 0-1 RAD, CHEST, 1 VIEW, NON [id number] 01:13:00Reason for exam:->increased SOBNShould this be performed at the bedside?->YesFINAL REPORT Examination: Ap Portable Chest Radiograph Clinical Indication: Shortness Of Breath Findings: Compared with 06/29/2018. Tips of the right jugular dialysis catheter and the right sided Port-A-Cath projects along the expected course of the superior vena cava. The cardiac silhouette is now borderline enlarged. Mediastinal contours are sharp and smooth. New streaky opacities are noted in the perihilar regions and lung bases. Although a component may reflect atelectasis, pulmonary edema or a pneumonia should also be considered. Query new small bilateral pleural effusions with subtle blunting of the costophrenic sulci. No definite evidence of an acute osseous abnormality or pneumothorax. A small round 2-3 cm nodular opacity projects over the right upper lobe, similar but more conspicuous than on patient's prior studies. The finding may reflect artifact including osteophytosis of the right anterior first rib. However, an underlying pulmonary nodule (benign versus malignant) cannot be excluded. IMPR ESSION: In summary, constellation of findings worrisome for mild fluid overload/ heart failure. A pneumonia cannot be excluded. Nodular opacity which projects ov er the right upper lobe as detailed above. Chest CT could be performed for furth er evaluation if clinically appropriate. Signed: Denny Beasley MDReport Verified Date/Time: 07/04/2018 01:13:57 Reading Location: [address] Room W/PLT COUNT & AUTO [id number] 01:04:00* Test Item Value Reference Range Comments WHITE BLOOD CELL COUNT (BEAKER) (test wpgj=097) 13.3 K/ L 3.5-10.5 RED BLOOD CELL COUNT (BEAKER) (test dqsu=973) 3.28 M/ L 4.63-6.08 HEMOGLOBIN (BEAKER) (test cxvu=321) 8.7 GM/DL 13.7-17.5 HEMATOCRIT (BEAKER) (test phqq=432) 27.6 % 40.1-51.0 MEAN CORPUSCULAR VOLUME (BEAKER) (test dzjh=144) 84.1 fL 79.0-92.2 MEAN CORPUSCULAR HEMOGLOBIN (BEAKER) (test frgd=562) 26.5 pg 25.7-32.2 MEAN CORPUSCULAR HEMOGLOBIN CONC (BEAKER) (test ssww=751) 31.5 GM/DL 32.3-36.5 RED CELL DISTRIBUTION WIDTH (BEAKER) (test mjab=799) 16.7 % 11.6-14.4 PLATELET COUNT (BEAKER) (test ykur=300) 291 K/CU MM 150-450 MEAN PLATELET VOLUME (BEAKER) (test qonw=351) 9.4 fL 9.4-12.4 NUCLEATED RED BLOOD CELLS (BEAKER) (test rxzy=122) 0 /100 WBC 0-0 NEUTROPHILS RELATIVE PERCENT (BEAKER) (test uonl=927) 91 % LYMPHOCYTES RELATIVE PERCENT (BEAKER) (test wvtj=888) 4 % MONOCYTES RELATIVE PERCENT (BEAKER) (test rnio=276) 3 % EOSINOPHILS RELATIVE PERCENT (BEAKER) (test yiea=443) 1 % BASOPHILS RELATIVE PERCENT (BEAKER) (test tyvm=132) 0 % NEUTROPHILS ABSOLUTE COUNT (BEAKER) (test sodl=470) 12.10 K/ L 1.78-5.38 LYMPHOCYTES ABSOLUTE COUNT (BEAKER) (test acmh=587) 0.57 K/ L 1.32-3.57 MONOCYTES ABSOLUTE COUNT (BEAKER) (test qoda=966) 0.40 K/ L 0.30-0.82 EOSINOPHILS ABSOLUTE COUNT (BEAKER) (test mdsp=280) 0.17 K/ L 0.04-0.54 BASOPHILS ABSOLUTE COUNT (BEAKER) (test htik=733) 0.03 K/ L 0.01-0.08 IMMATURE GRANULOCYTES-RELATIVE PERCENT (BEAKER) (test powb=4788) 1 % 0-1 LACTIC ACID, [id number] 01:00:00* Test Item Value Reference Range Comments LACTATE BLOOD VENOUS (2) (BEAKER) (test hhub=0129) 1.1 mmol/L 0.5-2.2 POCT-LACTIC ACID, [id number] 23:55:00* Test Item Value Reference Range Comments POC-LACTIC ACID, VENOUS (BEAKER) (test phvo=6190) 2.4 mmol/L 0.9-1.7 TESTED AT [place] [id number] POCT-GLUCOSE [id number] 23:43:00* Test Item Value Reference Range Comments POC-GLUCOSE METER ([facility]) (test rqah=1628) 172 mg/dL 70-110 TESTED AT [address] [address] POCT-GLUCOSE [id number] 21:30:00* Test Item Value Reference Range Comments POC-GLUCOSE METER (AKER) (test rlqg=5892) 245 mg/dL 70-110 TESTED AT [place] [id number] C. DIFFICILE GDH [id number] 18:15:00* Test Item Value Reference Range Comments CDT TOXIN (test agxj=[id number]) Negative Negative CDT GDH ANTIGEN (test ryes=[id number]) Negative Negative No indication of Clostridium difficile infection and no colonization. Discontinue enteric isolation and therapy. Testing performed by [employer] Rapid Cassette Assay. For GDH, published sensitivity of the assay is 98.7% compared to cytotoxicity testing. For Toxin AB, published sensitivity is 87.8% and specificity 99.4% compared to cytotoxicity testing.Ve rification of kit performance was done by the [facility] prior to cl inical use.POCT-GLUCOSE [id number] 17:10:00* Test Item Value Reference Range Comments POC-GLUCOSE METER (BEAKER) (test quir=8841) 255 mg/dL 70-110 TESTED AT [place] [id number] [facility] [address] POCT-GLUCOSE [id number] 11:48:00* Test Item Value Reference Range Comments POC-GLUCOSE METER (BEAKER) (test fnip=6703) 212 mg/dL 70-110 TESTED AT [address] [address] POCT-GLUCOSE [id number] 08:16:00* Test Item Value Reference Range Comments POC-GLUCOSE METER (BEAKER) (test ppek=3366) 189 mg/dL 70-110 TESTED AT [address] [address] [id number] 07:39:00* Test Item Value Reference Range Comments MAGNESIUM (BEAKER) (test swdx=311) 1.8 mg/dL 1.6-2.6 BASIC METABOLIC [id number] 07:39:00* Test Item Value Reference Range Comments SODIUM (BEAKER) (test fwyd=945) 135 meq/L 136-145 POTASSIUM (BEAKER) (test kdoh=547) 4.3 meq/L 3.5-5.1 CHLORIDE (BEAKER) (test tciv=619) 104 meq/L 98-107 CO2 (BEAKER) (test hunq=005) 23 meq/L 22-29 BLOOD UREA NITROGEN (BEAKER) (test aumk=492) 22 mg/dL 7-21 CREATININE (BEAKER) (test xttr=732) 1.30 mg/dL 0.57-1.25 GLUCOSE RANDOM (BEAKER) (test kojm=619) 116 mg/dL 70-105 CALCIUM (BEAKER) (test wcct=379) 8.7 mg/dL 8.4-10.2 EGFR (BEAKER) (test khta=3651) 56 mL/min/1.73 sq m ESTIMATED GFR IS NOT ACCURATE CREATININE CLEARANCE IN PREDICTING GLOMERULAR FILTRATION RATE. ESTIMATED GFR IS NOT APPLICABLE FOR DIALYSIS PATIENTS. CBC W/PLT COUNT & AUTO [id number] 05:37:00* Test Item Value Reference Range Comments WHITE BLOOD CELL COUNT (BEAKER) (test disn=044) 6.8 K/ L 3.5-10.5 RED BLOOD CELL COUNT (BEAKER) (test ngvi=911) 3.19 M/ L 4.63-6.08 HEMOGLOBIN (BEAKER) (test lrnz=034) 8.5 GM/DL 13.7-17.5 HEMATOCRIT (BEAKER) (test pegn=914) 27.4 % 40.1-51.0 MEAN CORPUSCULAR VOLUME (BEAKER) (test zmfc=129) 85.9 fL 79.0-92.2 MEAN CORPUSCULAR HEMOGLOBIN (BEAKER) (test ryhc=958) 26.6 pg 25.7-32.2 MEAN CORPUSCULAR HEMOGLOBIN CONC (BEAKER) (test mdkp=821) 31.0 GM/DL 32.3-36.5 RED CELL DISTRIBUTION WIDTH (BEAKER) (test rmdd=145) 16.9 % 11.6-14.4 PLATELET COUNT (BEAKER) (test nhij=514) 274 K/CU MM 150-450 MEAN PLATELET VOLUME (BEAKER) (test ppfp=171) 9.4 fL 9.4-12.4 NUCLEATED RED BLOOD CELLS (BEAKER) (test bjan=278) 0 /100 WBC 0-0 NEUTROPHILS RELATIVE PERCENT (BEAKER) (test wold=719) 73 % LYMPHOCYTES RELATIVE PERCENT (BEAKER) (test qwin=008) 15 % MONOCYTES RELATIVE PERCENT (BEAKER) (test ueck=263) 7 % EOSINOPHILS RELATIVE PERCENT (BEAKER) (test hwam=821) 5 % BASOPHILS RELATIVE PERCENT (BEAKER) (test riwi=063) 0 % NEUTROPHILS ABSOLUTE COUNT (BEAKER) (test tqqf=588) 4.97 K/ L 1.78-5.38 LYMPHOCYTES ABSOLUTE COUNT (BEAKER) (test ogld=317) 0.99 K/ L 1.32-3.57 MONOCYTES ABSOLUTE COUNT (BEAKER) (test vycb=037) 0.46 K/ L 0.30-0.82 EOSINOPHILS ABSOLUTE COUNT (BEAKER) (test cpkt=383) 0.36 K/ L 0.04-0.54 BASOPHILS ABSOLUTE COUNT (BEAKER) (test zyhm=069) 0.03 K/ L 0.01-0.08 IMMATURE GRANULOCYTES-RELATIVE PERCENT (BEAKER) (test kgfv=2112) 0 % 0-1 POCT-GLUCOSE [id number] 21:23:00* Test Item Value Reference Range Comments POC-GLUCOSE METER (BEAKER) (test eerv=3648) 145 mg/dL 70-110 TESTED AT [place] [id number] [facility] [address] POCT-GLUCOSE [id number] 17:20:00* Test Item Value Reference Range Comments POC-GLUCOSE METER (BEAKER) (test nneg=0870) 156 mg/dL 70-110 TESTED AT [address] [address] POCT-GLUCOSE [id number] 11:44:00* Test Item Value Reference Range Comments POC-GLUCOSE METER (BEAKER) (test sbxg=7166) 214 mg/dL 70-110 TESTED AT [address] [address] POCT-GLUCOSE [id number] 08:34:00* Test Item Value Reference Range Comments POC-GLUCOSE METER (BEAKER) (test zcul=5484) 168 mg/dL 70-110 TESTED AT [address] [address] VITAMIN [id number] 07:06:00* Test Item Value Reference Range Comments VITAMIN B12 (BEAKER) (test naao=919) 266 pg/mL 213-816 [id number] 07:06:00* Test Item Value Reference Range Comments FERRITIN (BEAKER) (test bfid=806) 326 ng/mL 5-275 FOLATE, [id number] 07:06:00* Test Item Value Reference Range Comments FOLATE (BEAKER) (test xriy=434) 7.0 ng/mL >=7.0 IRON, TIBC, % SAT. (WITHOUT FERRITIN)2018-07-02 06:39:00* Test Item Value Reference Range Comments IRON (BEAKER) (test vfrz=902) 14.0 ug/dL 40.0-160.0 TOTAL IRON BINDING CAPACITY (BEAKER) (test qrob=663) 171 ug/dL 250-450 IRON % SATURATION (2) (BEAKER) (test zqbh=8841) 8 % 20-55 [id number] 06:37:00* Test Item Value Reference Range Comments POTASSIUM (BEAKER) (test wkac=913) 4.4 meq/L 3.5-5.1 Call me if > [id number] 06:37:00* Test Item Value Reference Range Comments MAGNESIUM (BEAKER) (test xroc=402) 1.7 mg/dL 1.6-2.6 Call me if > 5.5BASIC METABOLIC [id number] 06:37:00* Test Item Value Reference Range Comments SODIUM (BEAKER) (test kcjm=484) 136 meq/L 136-145 POTASSIUM (BEAKER) (test uetf=792) 4.4 meq/L 3.5-5.1 CHLORIDE (BEAKER) (test zgun=856) 104 meq/L 98-107 CO2 (BEAKER) (test hshq=084) 24 meq/L 22-29 BLOOD UREA NITROGEN (BEAKER) (test hcyx=869) 24 mg/dL 7-21 CREATININE (BEAKER) (test ynuw=723) 1.52 mg/dL 0.57-1.25 GLUCOSE RANDOM (BEAKER) (test nslt=368) 139 mg/dL 70-105 CALCIUM (BEAKER) (test dydn=525) 8.2 mg/dL 8.4-10.2 EGFR (BEAKER) (test kaql=4120) 47 mL/min/1.73 sq m ESTIMATED GFR IS NOT ACCURATE CREATININE CLEARANCE IN PREDICTING GLOMERULAR FILTRATION RATE. ESTIMATED GFR IS NOT APPLICABLE FOR DIALYSIS PATIENTS. Call me if > 5.5CBC (HEMOGRAM ONLY)2018-07-02 06:13:00* Test Item Value Reference Range Comments WHITE BLOOD CELL COUNT (BEAKER) (test hrzp=739) 8.0 K/ L 3.5-10.5 RED BLOOD CELL COUNT (BEAKER) (test olwd=098) 2.60 M/ L 4.63-6.08 HEMOGLOBIN (BEAKER) (test nwxt=362) 6.8 GM/DL 13.7-17.5 HEMATOCRIT (BEAKER) (test gbde=684) 22.1 % 40.1-51.0 MEAN CORPUSCULAR VOLUME (BEAKER) (test eqga=164) 85.0 fL 79.0-92.2 MEAN CORPUSCULAR HEMOGLOBIN (BEAKER) (test uwvt=815) 26.2 pg 25.7-32.2 MEAN CORPUSCULAR HEMOGLOBIN CONC (BEAKER) (test ljtt=086) 30.8 GM/DL 32.3-36.5 RED CELL DISTRIBUTION WIDTH (BEAKER) (test lauj=067) 17.2 % 11.6-14.4 PLATELET COUNT (BEAKER) (test woot=696) 256 K/CU MM 150-450 MEAN PLATELET VOLUME (BEAKER) (test hpgz=749) 9.6 fL 9.4-12.4 NUCLEATED RED BLOOD CELLS (BEAKER) (test sqfo=759) 0 /100 WBC 0-0 [id number] 00:13:00* Test Item Value Reference Range Comments MAGNESIUM (BEAKER) (test uoei=350) 1.8 mg/dL 1.6-2.6 Call me if > [id number] 23:19:00* Test Item Value Reference Range Comments POTASSIUM (BEAKER) (test yoee=681) 4.8 meq/L 3.5-5.1 Call me if > 5.5POCT-GLUCOSE [id number] 21:02:00* Test Item Value Reference Range Comments POC-GLUCOSE METER (BEAKER) (test wxdj=1032) 225 mg/dL 70-110 TESTED AT [address] [address] [id number] 17:49:00* Test Item Value Reference Range Comments POTASSIUM (BEAKER) (test azne=345) 4.3 meq/L 3.5-5.1 Call me if > 5.5URINALYSIS W/ [id number] 17:46:00* Test Item Value Reference Range Comments COLOR (BEAKER) (test ufrh=072) Light Yellow CLARITY (BEAKER) (test ocjb=340) Hazy SPECIFIC GRAVITY UA (BEAKER) (test ftyc=299) 1.009 1.001-1.035 PH UA (BEAKER) (test wukm=443) 7.5 5.0-8.0 PROTEIN UA (BEAKER) (test ysxl=575) 50 mg/dL Negative GLUCOSE UA (BEAKER) (test pyns=241) Negative Negative KETONES UA (BEAKER) (test qbpq=348) Negative Negative BILIRUBIN UA (BEAKER) (test apau=532) Negative Negative BLOOD UA (BEAKER) (test whim=815) Small Negative NITRITE UA (BEAKER) (test oyhg=042) Positive Negative LEUKOCYTE ESTERASE UA (BEAKER) (test ukzb=870) Large Negative UROBILINOGEN UA (BEAKER) (test zwyo=378) 0.2 mg/dL 0.2-1.0 RBC UA (BEAKER) (test iahe=575) 15 /HPF WBC UA (BEAKER) (test yzsk=328) 514 /HPF BACTERIA (BEAKER) (test yeat=609) Few SOURCE(BEAKER) (test aqva=2423) [id number] 13:26:00* Test Item Value Reference Range Comments POTASSIUM (BEAKER) (test oepf=184) 4.3 meq/L 3.5-5.1 Call me if > 5.5POCT-GLUCOSE [id number] 12:16:00* Test Item Value Reference Range Comments POC-GLUCOSE METER (BEAKER) (test wtjw=4733) 241 mg/dL 70-110 TESTED AT [address] [address] POCT-GLUCOSE [id number] 08:49:00* Test Item Value Reference Range Comments POC-GLUCOSE METER (BEAKER) (test qmme=0610) 131 mg/dL 70-110 TESTED AT [address] [address] [id number] 08:30:00* Test Item Value Reference Range Comments POTASSIUM (BEAKER) (test turb=381) 4.3 meq/L 3.5-5.1 Call me if > 5.5POCT-GLUCOSE [id number] 08:12:00* Test Item Value Reference Range Comments POC-GLUCOSE METER (BEAKER) (test ighz=5461) 122 mg/dL 70-110 TESTED AT [address] [address] [id number] 05:03:00* Test Item Value Reference Range Comments PHOSPHORUS (BEAKER) (test iugl=170) 3.2 mg/dL 2.3-4.7 [id number] 05:03:00* Test Item Value Reference Range Comments MAGNESIUM (BEAKER) (test xrxy=409) 1.4 mg/dL 1.6-2.6 BASIC METABOLIC [id number] 05:03:00* Test Item Value Reference Range Comments SODIUM (BEAKER) (test rmba=277) 136 meq/L 136-145 POTASSIUM (BEAKER) (test sfgr=526) 4.4 meq/L 3.5-5.1 CHLORIDE (BEAKER) (test ccut=268) 103 meq/L 98-107 CO2 (BEAKER) (test bpmk=638) 25 meq/L 22-29 BLOOD UREA NITROGEN (BEAKER) (test ulth=841) 18 mg/dL 7-21 CREATININE (BEAKER) (test wfey=719) 1.49 mg/dL 0.57-1.25 GLUCOSE RANDOM (BEAKER) (test gbac=840) 132 mg/dL 70-105 CALCIUM (BEAKER) (test dclt=983) 8.1 mg/dL 8.4-10.2 EGFR (BEAKER) (test vhqh=4739) 48 mL/min/1.73 sq m ESTIMATED GFR IS NOT ACCURATE CREATININE CLEARANCE IN PREDICTING GLOMERULAR FILTRATION RATE. ESTIMATED GFR IS NOT APPLICABLE FOR DIALYSIS PATIENTS. POCT-GLUCOSE [id number] 04:58:00* Test Item Value Reference Range Comments POC-GLUCOSE METER (BEAKER) (test yawm=6529) 164 mg/dL 70-110 TESTED AT [facility] [address] [facility] [address] U/S, RENAL, [id number] 04:44:00Reason for exam:->acute renal failureShould this be performed at the bedside?->YesFINAL REPORT Ultrasound of the Kidneys Clinical History: [...] Small pelvic free fluid. Impression: Mild left hydronephrosis.Small debris within the urinary bladder which may be seen with infection. Correlate clinically.Small pelvic free fluid. Signed: Irina Gutierrez MDReport Verified Date/Time: 07/01/2018 04:44:25 Reading Location: [place] [address] CT Body Reading Room (HEMOGRAM ONLY)2018-07-01 04:29:00* Test Item Value Reference Range Comments WHITE BLOOD CELL COUNT (BEAKER) (test piku=739) 9.2 K/ L 3.5-10.5 RED BLOOD CELL COUNT (BEAKER) (test fxhy=243) 2.75 M/ L 4.63-6.08 HEMOGLOBIN (BEAKER) (test hlnn=438) 7.1 GM/DL 13.7-17.5 HEMATOCRIT (BEAKER) (test prmq=208) 23.5 % 40.1-51.0 MEAN CORPUSCULAR VOLUME (BEAKER) (test fksd=035) 85.5 fL 79.0-92.2 MEAN CORPUSCULAR HEMOGLOBIN (BEAKER) (test voib=914) 25.8 pg 25.7-32.2 MEAN CORPUSCULAR HEMOGLOBIN CONC (BEAKER) (test jcnv=348) 30.2 GM/DL 32.3-36.5 RED CELL DISTRIBUTION WIDTH (BEAKER) (test kbvr=470) 17.0 % 11.6-14.4 PLATELET COUNT (BEAKER) (test rnln=978) 231 K/CU MM 150-450 MEAN PLATELET VOLUME (BEAKER) (test lfpx=062) 9.2 fL 9.4-12.4 NUCLEATED RED BLOOD CELLS (BEAKER) (test twsu=652) 0 /100 WBC 0-0 [id number] 00:35:00* Test Item Value Reference Range Comments POTASSIUM (BEAKER) (test futx=592) 4.5 meq/L 3.5-5.1 Call me if > 5.5POCT-GLUCOSE [id number] 00:01:00* Test Item Value Reference Range Comments POC-GLUCOSE METER (BEAKER) (test rpga=6405) 152 mg/dL 70-110 TESTED AT [facility] [address] [facility] [address] [id number] 20:15:00* Test Item Value Reference Range Comments POTASSIUM (BEAKER) (test kmib=346) 4.5 meq/L 3.5-5.1 Call me if > 5.5POCT-GLUCOSE [id number] 20:13:00* Test Item Value Reference Range Comments POC-GLUCOSE METER (BEAKER) (test szwf=5828) 178 mg/dL 70-110 TESTED AT [place] [id number] [facility] [address] [id number] 16:59:00* Test Item Value Reference Range Comments POTASSIUM (BEAKER) (test fjwh=649) 4.5 meq/L 3.5-5.1 Call me if > 5.5POCT-GLUCOSE [id number] 16:43:00* Test Item Value Reference Range Comments POC-GLUCOSE METER (BEAKER) (test pivg=8112) 201 mg/dL 70-110 TESTED AT [place] [id number] [facility] [address] [id number] 14:11:00* Test Item Value Reference Range Comments POTASSIUM (BEAKER) (test eqxf=693) 4.8 meq/L 3.5-5.1 Call me if > 5.5POCT-GLUCOSE [id number] 14:03:00* Test Item Value Reference Range Comments POC-GLUCOSE METER (BEAKER) (test lotk=1208) 168 mg/dL 70-110 TESTED AT [address] [address] POCT-GLUCOSE [id number] 11:43:00* Test Item Value Reference Range Comments POC-GLUCOSE METER (BEAKER) (test uuyq=2025) 206 mg/dL 70-110 TESTED AT [address] [address] CREATININE, RANDOM [id number] 10:54:00* Test Item Value Reference Range Comments CREATININE URINE (BEAKER) (test roht=695) 43.3 mg/dL Reference Range: No NormalsSODIUM, RANDOM [id number] 10:54:00* Test Item Value Reference Range Comments SODIUM URINE (BEAKER) (test gbbt=830) 45 meq/L Reference Range: No [id number] 10:34:00* Test Item Value Reference Range Comments POTASSIUM (BEAKER) (test qond=935) 4.3 meq/L 3.5-5.1 POCT-GLUCOSE [id number] 09:53:00* Test Item Value Reference Range Comments POC-GLUCOSE METER (BEAKER) (test gogl=2624) 219 mg/dL 70-110 TESTED AT [facility] [address] [facility] [address] [id number] 08:51:00* Test Item Value Reference Range Comments POTASSIUM (BEAKER) (test lfwl=170) 4.1 meq/L 3.5-5.1 Call me if > 5.5TROPONIN [id number] 08:25:00* Test Item Value Reference Range Comments TROPONIN I (BEAKER) (test qsmx=685) 0.09 ng/mL 0.00-0.03 Troponin I (TnI) levels must be interpreted in the context of the presenting sym ptoms and the clinical findings. Elevated TnI levels indicate myocardial damage, but are not specific for ischemic heart disease. Elevated TnI levels are seen in patients with other cardiac conditions (including myocarditis and congestive h eart failure), and slight TnI elevations occur in patients with other conditions , including sepsis, renal failure, acidosis, acute neurological disease, and per sistent tachyarrhythmia.POCT-GLUCOSE [id number] 06:20:00* Test Item Value Reference Range Comments POC-GLUCOSE METER (BEAKER) (test vayn=8174) 161 mg/dL 70-110 TESTED AT [facility] [address] [facility] [address] [id number] 06:17:00* Test Item Value Reference Range Comments PHOSPHORUS (BEAKER) (test mfic=945) 2.2 mg/dL 2.3-4.7 [id number] 06:17:00* Test Item Value Reference Range Comments MAGNESIUM (BEAKER) (test wleq=243) 1.4 mg/dL 1.6-2.6 BASIC METABOLIC [id number] 06:17:00* Test Item Value Reference Range Comments SODIUM (BEAKER) (test roef=923) 136 meq/L 136-145 POTASSIUM (BEAKER) (test oyqj=827) 3.9 meq/L 3.5-5.1 CHLORIDE (BEAKER) (test vmah=922) 104 meq/L 98-107 CO2 (BEAKER) (test hvkm=226) 26 meq/L 22-29 BLOOD UREA NITROGEN (BEAKER) (test sivk=059) 10 mg/dL 7-21 CREATININE (BEAKER) (test zfde=363) 0.78 mg/dL 0.57-1.25 GLUCOSE RANDOM (BEAKER) (test dghr=481) 147 mg/dL 70-105 CALCIUM (BEAKER) (test ncuo=613) 8.1 mg/dL 8.4-10.2 EGFR (BEAKER) (test ineq=8315) 102 mL/min/1.73 sq m ESTIMATED GFR IS NOT ACCURATE CREATININE CLEARANCE IN PREDICTING GLOMERULAR FILTRATION RATE. ESTIMATED GFR IS NOT APPLICABLE FOR DIALYSIS PATIENTS. CBC (HEMOGRAM ONLY)2018-06-30 05:53:00* Test Item Value Reference Range Comments WHITE BLOOD CELL COUNT (BEAKER) (test wylc=352) 8.1 K/ L 3.5-10.5 RED BLOOD CELL COUNT (BEAKER) (test dxjp=723) 2.76 M/ L 4.63-6.08 HEMOGLOBIN (BEAKER) (test wfto=221) 7.1 GM/DL 13.7-17.5 HEMATOCRIT (BEAKER) (test vxzw=443) 23.3 % 40.1-51.0 MEAN CORPUSCULAR VOLUME (BEAKER) (test qacj=089) 84.4 fL 79.0-92.2 MEAN CORPUSCULAR HEMOGLOBIN (BEAKER) (test swnt=982) 25.7 pg 25.7-32.2 MEAN CORPUSCULAR HEMOGLOBIN CONC (BEAKER) (test wmtv=536) 30.5 GM/DL 32.3-36.5 RED CELL DISTRIBUTION WIDTH (BEAKER) (test clah=029) 17.2 % 11.6-14.4 PLATELET COUNT (BEAKER) (test vsyc=454) 226 K/CU MM 150-450 MEAN PLATELET VOLUME (BEAKER) (test vtcn=771) 9.3 fL 9.4-12.4 NUCLEATED RED BLOOD CELLS (BEAKER) (test pjik=899) 0 /100 WBC 0-0 [id number] 05:23:00* Test Item Value Reference Range Comments FERRITIN (BEAKER) (test mzkp=260) 284 ng/mL 5-275 IRON, TIBC, % SAT. (WITHOUT FERRITIN)2018-06-30 05:10:00* Test Item Value Reference Range Comments IRON (BEAKER) (test kipm=403) 17.0 ug/dL 40.0-160.0 TOTAL IRON BINDING CAPACITY (BEAKER) (test owyy=853) 168 ug/dL 250-450 IRON % SATURATION (2) (BEAKER) (test zdza=9825) 10 % 20-55 POCT-GLUCOSE [id number] 03:25:00* Test Item Value Reference Range Comments POC-GLUCOSE METER (BEAKER) (test ogqw=1661) 123 mg/dL 70-110 TESTED AT [address] [address] POCT-GLUCOSE [id number] 02:00:00* Test Item Value Reference Range Comments POC-GLUCOSE METER (BEAKER) (test hyap=9934) 132 mg/dL 70-110 TESTED AT [address] [address] [id number] 23:34:00* Test Item Value Reference Range Comments POTASSIUM (BEAKER) (test scbq=322) 5.4 meq/L 3.5-5.1 POCT-GLUCOSE [id number] 23:20:00* Test Item Value Reference Range Comments POC-GLUCOSE METER (BEAKER) (test aybf=7554) 83 mg/dL 70-110 TESTED AT [address] [address] POCT-GLUCOSE [id number] 22:07:00* Test Item Value Reference Range Comments POC-GLUCOSE METER (BEAKER) (test ldoz=6827) 57 mg/dL 70-110 TESTED AT [address] [address] RAD, CHEST, 1 VIEW, NON [id number] 22:07:00Reason for exam:->confirm central line positionShould this be performed at the bedside?->YesFINAL REPORT History: Central line placement. Comparison: 06/28/2018 Findings: A single view of the chest is submitted. A right IJ central venous catheter tip overlies the SVC without associated pneumothorax or hematoma. The cardiac silhouette is within normal limits for size. There is atherosclerotic calcification of the aorta. There is no focal consolidation, pneumothorax, large pleural effusion or evidence of overt pulmonary edema. There is no acute bony abnormality. A right IJ chest port remains in place. Signed: Jay Aguilar MDReport Verified Date/Time: 06/29/2018 22:07:28 Reading Location: [address] Reading Room [id number] 20:25:00* Test Item Value Reference Range Comments POTASSIUM (BEAKER) (test vicr=063) 5.2 meq/L 3.5-5.1 Call me if > 5.5HEPATITIS B SURFACE [id number] 19:32:00* Test Item Value Reference Range Comments HEPATITIS B SURFACE ANTIGEN (2) (BEAKER) (test qdrd=6991) Nonreactive Nonreactive LACTATE DEHYDROGENASE (LDH)2018-06-29 18:06:00* Test Item Value Reference Range Comments LACTATE DEHYDROGENASE (BEAKER) (test jspp=048) 242 U/L 125-220 Specimen slightly hemolyzed CREATINE KINASE (CK)2018-06-29 18:03:00* Test Item Value Reference Range Comments CREATINE KINASE TOTAL (BEAKER) (test ljfb=087) 60 U/L 29-200 POCT-GLUCOSE [id number] 17:44:00* Test Item Value Reference Range Comments POC-GLUCOSE METER (BEAKER) (test ljtz=3573) 217 mg/dL 70-110 TESTED AT [facility] [address] [place] [address] [id number] 15:58:00* Test Item Value Reference Range Comments POTASSIUM (BEAKER) (test kgts=508) 6.8 meq/L 3.5-5.1 Call me if > [id number] 14:41:00* Test Item Value Reference Range Comments POTASSIUM (BEAKER) (test iomo=247) 7.0 meq/L 3.5-5.1 Specimen slightly hemolyzed Call me if > 5.5TROPONIN [id number] 14:22:00* Test Item Value Reference Range Comments TROPONIN I (BEAKER) (test mahl=392) 0.09 ng/mL 0.00-0.03 Troponin I (TnI) levels must be interpreted in the context of the presenting sym ptoms and the clinical findings. Elevated TnI levels indicate myocardial damage, but are not specific for ischemic heart disease. Elevated TnI levels are seen in patients with other cardiac conditions (including myocarditis and congestive h eart failure), and slight TnI elevations occur in patients with other conditions , including sepsis, renal failure, acidosis, acute neurological disease, and per sistent tachyarrhythmia.Call me if > [id number] 10:40:00* Test Item Value Reference Range Comments POTASSIUM (BEAKER) (test zzlf=510) 6.4 meq/L 3.5-5.1 POCT-GLUCOSE [id number] 09:50:00* Test Item Value Reference Range Comments POC-GLUCOSE METER (BEAKER) (test rlbo=5672) 128 mg/dL 70-110 TESTED AT [facility] [address] [facility] [address] BASIC METABOLIC [id number] 07:31:00* Test Item Value Reference Range Comments SODIUM (BEAKER) (test lled=079) 135 meq/L 136-145 POTASSIUM (BEAKER) (test goeh=069) 6.8 meq/L 3.5-5.1 CHLORIDE (BEAKER) (test nfer=696) 112 meq/L 98-107 CO2 (BEAKER) (test sknp=564) 20 meq/L 22-29 BLOOD UREA NITROGEN (BEAKER) (test haab=107) 40 mg/dL 7-21 CREATININE (BEAKER) (test dzpv=642) 2.11 mg/dL 0.57-1.25 GLUCOSE RANDOM (BEAKER) (test uvic=332) 51 mg/dL 70-105 CALCIUM (BEAKER) (test elfg=671) 9.0 mg/dL 8.4-10.2 EGFR (BEAKER) (test rhnk=8088) 32 mL/min/1.73 sq m ESTIMATED GFR IS NOT ACCURATE CREATININE CLEARANCE IN PREDICTING GLOMERULAR FILTRATION RATE. ESTIMATED GFR IS NOT APPLICABLE FOR DIALYSIS PATIENTS. TROPONIN [id number] 07:30:00* Test Item Value Reference Range Comments TROPONIN I (BEAKER) (test olrv=701) 0.07 ng/mL 0.00-0.03 Troponin I (TnI) levels must be interpreted in the context of the presenting sym ptoms and the clinical findings. Elevated TnI levels indicate myocardial damage, but are not specific for ischemic heart disease. Elevated TnI levels are seen in patients with other cardiac conditions (including myocarditis and congestive h eart failure), and slight TnI elevations occur in patients with other conditions , including sepsis, renal failure, acidosis, acute neurological disease, and per sistent tachyarrhythmia.[id number] 07:21:00* Test Item Value Reference Range Comments PHOSPHORUS (BEAKER) (test nygj=153) 4.1 mg/dL 2.3-4.7 [id number] 07:21:00* Test Item Value Reference Range Comments MAGNESIUM (BEAKER) (test nfyr=612) 1.7 mg/dL 1.6-2.6 POCT-GLUCOSE [id number] 06:49:00* Test Item Value Reference Range Comments POC-GLUCOSE METER (BEAKER) (test hoyg=0613) 105 mg/dL 70-110 TESTED AT [place] [id number] [facility] [address] POCT-GLUCOSE [id number] 04:47:00* Test Item Value Reference Range Comments POC-GLUCOSE METER (BEAKER) (test rooy=7761) 66 mg/dL 70-110 Notified LEE BARBOUR/TESTED AT [address] [address] POCT-GLUCOSE [id number] 04:08:00* Test Item Value Reference Range Comments POC-GLUCOSE METER (BEAKER) (test zwrk=5716) 47 mg/dL 70-110 Notified LEE BARBOUR/TESTED AT [address] [address] POCT-GLUCOSE [id number] 23:14:00* Test Item Value Reference Range Comments POC-GLUCOSE METER (BEAKER) (test vpuz=4346) 69 mg/dL 70-110 TESTED AT [place] [id number] [facility] [address] RAD, CHEST, 2 [id number] 22:10:00Reason for exam:->HYPOGLYCEMIAFINAL REPORT Exam: Chest x-ray, PA and lateral views Clinical History: Hypoglycemia. Comparison: Chest radiograph 10/28/2016. Technique: Frontal and lateral views of the chest were obtained. Findings:There is a right IJ Port-A-Cath with tip in the SVC.The heart is normal in size. The aorta is athe rosclerotic. There is no focal pulmonary consolidation, pleural effusion or pneu mothorax. There is no pulmonary edema. The bony thorax is unremarkable. Impressi on: No focal pulmonary consolidation. Signed: Pedro Gutierrezort Verified Date/Time: 06/28/2018 22:10:22 Reading Location: [facility] B1 C013Y CT Body Reading Room P M POCT-GLUCOSE [id number] 19:29:00* Test Item Value Reference Range Comments POC-GLUCOSE METER (BEAKER) (test fsyr=6645) 125 mg/dL 70-110 TESTED AT [facility] [address] [facility] [address] POCT-GLUCOSE [id number] 18:22:00* Test Item Value Reference Range Comments POC-GLUCOSE METER (BEAKER) (test jvwn=7099) 60 mg/dL 70-110 TESTED AT [facility] [address] [facility] [address] POCT-GLUCOSE [id number] 17:15:00* Test Item Value Reference Range Comments POC-GLUCOSE METER (BEAKER) (test ilfc=3662) 70 mg/dL 70-110 TESTED AT [facility] [address] [facility] [address] BASIC METABOLIC [id number] 17:03:00* Test Item Value Reference Range Comments SODIUM (BEAKER) (test ymlm=286) 134 meq/L 136-145 POTASSIUM (BEAKER) (test vxdi=571) 5.9 meq/L 3.5-5.1 CHLORIDE (BEAKER) (test gzyj=921) 108 meq/L 98-107 CO2 (BEAKER) (test vcyt=467) 19 meq/L 22-29 BLOOD UREA NITROGEN (BEAKER) (test nwzi=873) 40 mg/dL 7-21 CREATININE (BEAKER) (test gxqu=299) 2.76 mg/dL 0.57-1.25 GLUCOSE RANDOM (BEAKER) (test lcrz=404) 49 mg/dL 70-105 CALCIUM (BEAKER) (test dvwh=212) 9.1 mg/dL 8.4-10.2 EGFR (BEAKER) (test sqhj=5216) 24 mL/min/1.73 sq m ESTIMATED GFR IS NOT ACCURATE CREATININE CLEARANCE IN PREDICTING GLOMERULAR FILTRATION RATE. ESTIMATED GFR IS NOT APPLICABLE FOR DIALYSIS PATIENTS. CBC W/PLT COUNT & AUTO [id number] 16:44:00* Test Item Value Reference Range Comments WHITE BLOOD CELL COUNT (BEAKER) (test zjgg=555) 9.2 K/ L 3.5-10.5 RED BLOOD CELL COUNT (BEAKER) (test yprv=515) 3.18 M/ L 4.63-6.08 HEMOGLOBIN (BEAKER) (test nbeg=417) 8.2 GM/DL 13.7-17.5 HEMATOCRIT (BEAKER) (test jtjx=127) 28.0 % 40.1-51.0 MEAN CORPUSCULAR VOLUME (BEAKER) (test ryea=674) 88.1 fL 79.0-92.2 MEAN CORPUSCULAR HEMOGLOBIN (BEAKER) (test yfdm=282) 25.8 pg 25.7-32.2 MEAN CORPUSCULAR HEMOGLOBIN CONC (BEAKER) (test sogp=946) 29.3 GM/DL 32.3-36.5 RED CELL DISTRIBUTION WIDTH (BEAKER) (test dbjy=701) 17.2 % 11.6-14.4 PLATELET COUNT (BEAKER) (test gvrc=650) 278 K/CU MM 150-450 MEAN PLATELET VOLUME (BEAKER) (test ncqo=243) 8.6 fL 9.4-12.4 NUCLEATED RED BLOOD CELLS (BEAKER) (test lqms=951) 0 /100 WBC 0-0 NEUTROPHILS RELATIVE PERCENT (BEAKER) (test usyr=775) 73 % LYMPHOCYTES RELATIVE PERCENT (BEAKER) (test npeg=889) 14 % MONOCYTES RELATIVE PERCENT (BEAKER) (test jmby=987) 9 % EOSINOPHILS RELATIVE PERCENT (BEAKER) (test qxin=739) 3 % BASOPHILS RELATIVE PERCENT (BEAKER) (test wbje=177) 1 % NEUTROPHILS ABSOLUTE COUNT (BEAKER) (test cdxb=321) 6.74 K/ L 1.78-5.38 LYMPHOCYTES ABSOLUTE COUNT (BEAKER) (test kksl=640) 1.24 K/ L 1.32-3.57 MONOCYTES ABSOLUTE COUNT (BEAKER) (test mkpk=737) 0.83 K/ L 0.30-0.82 EOSINOPHILS ABSOLUTE COUNT (BEAKER) (test ojpv=397) 0.29 K/ L 0.04-0.54 BASOPHILS ABSOLUTE COUNT (BEAKER) (test rdgq=373) 0.05 K/ L 0.01-0.08 IMMATURE GRANULOCYTES-RELATIVE PERCENT (BEAKER) (test gxqp=5286) 0 % 0-1 POCT-GLUCOSE [id number] 16:35:00* Test Item Value Reference Range Comments POC-GLUCOSE METER (BEAKER) (test efng=2386) 75 mg/dL 70-110 TESTED AT [facility] [address] [facility] [address] POCT-GLUCOSE [id number] 13:14:00* Test Item Value Reference Range Comments POC-GLUCOSE METER (BEAKER) (test lbsn=4544) 77 mg/dL 70-110 TESTED AT [address] [address] POCT-GLUCOSE [id number] 11:33:00* Test Item Value Reference Range Comments POC-GLUCOSE METER (BEAKER) (test wbir=4698) 80 mg/dL 70-110 TESTED AT [place] [id number] [facility] [address] [id number] 12:32:00* Test Item Value Reference Range Comments GLUBED (test code=GLUBED) 174 mg/dL 74-106 Performed by certified cistern room operator at [facility] [id number] 08:06:00* Test Item Value Reference Range Comments GLUBED (test code=GLUBED) 135 mg/dL 74-106 Performed by certified cistern room operator at [facility] COMPREHENSIVE METABOLIC [id number] 05:59:00* Test Item Value Reference Range Comments SODIUM (test code=NA) 136 mmol/L 136-145 POTASSIUM (test code=K) 4.9 mmol/L 3.5-5.1 CHLORIDE (test code=CL) 110.0 mmol/L 98-107 CARBON DIOXIDE (test code=CO2) 18.0 mmol/L 21-32 ANION GAP (test code=GAP) 12.9 10-20 GLUCOSE (test code=GLU) 136 mg/dL 74-106 BLOOD UREA NITROGEN (test code=BUN) 36 mg/dL 7-18 GLOMERULAR FILTRATION RATE (test code=GFR) 52 mL/min >=60 Estimated GFR by using Modified MDRD formula.Chronic kidney disease is defined as either kidney damageor GFR <60 mL/min/1.73 m2 for >3 months. CREATININE (test code=CREAT) 1.40 mg/dL 0.7-1.3 BUN/CREATININE RATIO (test code=BUN/CREA) 26.7 10-20 TOTAL PROTEIN (test code=PROT) 8.0 gram/dL 6.4-8.2 ALBUMIN (test code=ALB) 2.2 g/dL 3.4-5.0 GLOBULIN (test code=GLOB) 5.8 gram/dL 2.7-4.2 ALBUMIN/GLOBULIN RATIO (test code=A/G) 0.4 0.75-1.50 CALCIUM (test code=CA) 7.6 mg/dL 8.5-10.1 BILIRUBIN TOTAL (test code=BILT) 0.50 mg/dL 0.0-1.0 SGOT/AST (test code=AST) 18 IUnit/L 15-37 SGPT/ALT (test code=ALT) 10 IUnit/L 12-78 ALKALINE PHOSPHATASE TOTAL (test code=ALKP) 88 IUnit/L 45-117 Note change in reference range due to change in reagent. LIPID PROFILE (CORONARY RISK)2018-06-08 05:59:00* Test Item Value Reference Range Comments TRIGLYCERIDES (test code=TRIG) 73 mg/dL 20-150 CHOLESTEROL (test code=CHOL) 92 mg/dL 0-200 CHOLESTEROL/HDL RATIO (test code=CHOLHDL) 3.0 RATIO 0-4.9 RISK ASSOCIATED WITH CHOL/HDL RATIOS: Risk Male Female1/2 AVERAGE 3.43 3.27AVERAGE 4.97 4.442X AVERAGE 9.55 7.053X AVERAGE 23.39 11.04 REFERENCE VALUE IS RELATED TO RISK LEVELS ASRECOMMENDED BY THE [facility]. HEART, LUNG, AND BLOOD INST. HDL CHOLESTEROL (test code=HDL) 28 mg/dL 40-60 LIPOPROTEIN LDL (test code=LDL) 66 mg/dL 100-129 Reference Interval: mg/dL mmol/L Optimal <100 <2.6Near/above optimal 100-129 2.6- 3.3Borderline High 130-159 3.4-4.1High 160-189 4.1-4.9Very High >=190 >=4.9=========This LDL result is a direct measurement.========= [id number] 05:41:00* Test Item Value Reference Range Comments GLUBED (test code=GLUBED) 137 mg/dL 74-106 Performed by certified cistern room operator at [facility] [id number] 23:35:00* Test Item Value Reference Range Comments GLUBED (test code=GLUBED) 151 mg/dL 74-106 Performed by certified cistern room operator at [facility] [id number] 20:40:00* Test Item Value Reference Range Comments GLUBED (test code=GLUBED) 137 mg/dL 74-106 Performed by certified cistern room operator at [facility] [id number] 16:55:00* Test Item Value Reference Range Comments GLUBED (test code=GLUBED) 184 mg/dL 74-106 [facility]~ [id number] 12:33:00* Test Item Value Reference Range Comments GLUBED (test code=GLUBED) 167 mg/dL 74-106 [facility] certified [facility] [id number] 12:06:00* Test Item Value Reference Range Comments POTASSIUM (test code=K) 4.7 mmol/L 3.5-5.1 [id number] 08:26:00* Test Item Value Reference Range Comments GLUBED (test code=GLUBED) 115 mg/dL 74-106 [facility] CBC W/AUTO [id number] 07:31:00* Test Item Value Reference Range Comments WHITE BLOOD CELL (test code=WBC) 8.5 K/mm3 4.5-12.5 RED BLOOD CELL (test code=RBC) 3.01 mill/mm3 4.0-5.8 HEMOGLOBIN (test code=HGB) 7.8 gram/dL 13.0-17.5 HEMATOCRIT (test code=HCT) 26.2 % 42.0-52.0 MEAN CELL VOLUME (test code=MCV) 87.0 fL 80-98 MEAN CELL HGB (test code=MCH) 25.9 picogram 27.0-33.0 MEAN CELL HGB CONCETRATION (test code=MCHC) 29.8 gram/dL 33.0-36.0 RED CELL DISTRIBUTION WIDTH (test code=RDW) 17.3 % 11.6-16.2 RED CELL DISTRIBUTION WIDTH SD (test code=RDW-SD) 55.4 fL 37.0-51.0 PLATELET COUNT (test code=PLT) 293 K/mm3 150-450 MEAN PLATELET VOLUME (test code=MPV) 10.2 fL 6.7-11.0 NEUTROPHIL % (test code=NT%) 73.1 % 39.0-69.0 IMMATURE GRANULOCYTE % (test code=IG%) 0.6 % 0.0-5.0 LYMPHOCYTE % (test code=LY%) 16.0 % 25.0-55.0 MONOCYTE % (test code=MO%) 7.0 % 0.0-10.0 EOSINOPHIL % (test code=EO%) 2.8 % 0.0-5.0 BASOPHIL % (test code=BA%) 0.5 % 0.0-1.0 NUCLEATED RBC % (test code=NRBC%) 0.0 % 0-0 NEUTROPHIL # (test code=NT#) 6.20 K/mm3 1.8-7.7 IMMATURE GRANULOCYTE # (test code=IG#) 0.05 x10 3/uL 0-0.03 LYMPHOCYTE # (test code=LY#) 1.36 K/mm3 1.0-5.0 MONOCYTE # (test code=MO#) 0.59 K/mm3 0-0.8 EOSINOPHIL # (test code=EO#) 0.24 K/mm3 0.0-0.5 BASOPHIL # (test code=BA#) 0.04 K/mm3 0.0-0.2 NUCLEATED RBC # (test code=NRBC#) 0.00 K/mm3 0.0-0.1 MANUAL DIFF REQUIRED (test code=MDIFF) NO, ONLY SCAN NEEDED DIFFERENTIAL [id number] 07:31:00* Test Item Value Reference Range Comments STAIN ACCEPTABILITY (test code=STN ACCEPTABLE) STAIN ACCEPTABLE MORPHOLOGY COMMENT (test code=MOC) NORMAL PLATELET ESTIMATE (test code=PLTEST) ADEQUATE PLATELET MORPHOLOGY (test code=PLTMORPH) NORMAL BASIC METABOLIC [id number] 07:08:00* Test Item Value Reference Range Comments SODIUM (test code=NA) 135 mmol/L 136-145 POTASSIUM (test code=K) 5.7 mmol/L 3.5-5.1 CHLORIDE (test code=CL) 108.0 mmol/L 98-107 CARBON DIOXIDE (test code=CO2) 22.0 mmol/L 21-32 ANION GAP (test code=GAP) 10.7 10-20 GLUCOSE (test code=GLU) 191 mg/dL 74-106 BLOOD UREA NITROGEN (test code=BUN) 34 mg/dL 7-18 GLOMERULAR FILTRATION RATE (test code=GFR) 56 mL/min >=60 Estimated GFR by using Modified MDRD formula.Chronic kidney disease is defined as either kidney damageor GFR <60 mL/min/1.73 m2 for >3 months. CREATININE (test code=CREAT) 1.30 mg/dL 0.7-1.3 BUN/CREATININE RATIO (test code=BUN/CREA) 25.6 10-20 CALCIUM (test code=CA) 7.9 mg/dL 8.5-10.1 CBC W/AUTO [id number] 07:00:00* Test Item Value Reference Range Comments WHITE BLOOD CELL (test code=WBC) 8.5 K/mm3 4.5-12.5 RED BLOOD CELL (test code=RBC) 3.01 mill/mm3 4.0-5.8 HEMOGLOBIN (test code=HGB) 7.8 gram/dL 13.0-17.5 HEMATOCRIT (test code=HCT) 26.2 % 42.0-52.0 MEAN CELL VOLUME (test code=MCV) 87.0 fL 80-98 MEAN CELL HGB (test code=MCH) 25.9 picogram 27.0-33.0 MEAN CELL HGB CONCETRATION (test code=MCHC) 29.8 gram/dL 33.0-36.0 RED CELL DISTRIBUTION WIDTH (test code=RDW) 17.3 % 11.6-16.2 RED CELL DISTRIBUTION WIDTH SD (test code=RDW-SD) 55.4 fL 37.0-51.0 PLATELET COUNT (test code=PLT) 293 K/mm3 150-450 MEAN PLATELET VOLUME (test code=MPV) 10.2 fL 6.7-11.0 NEUTROPHIL % (test code=NT%) 73.1 % 39.0-69.0 IMMATURE GRANULOCYTE % (test code=IG%) 0.6 % 0.0-5.0 LYMPHOCYTE % (test code=LY%) 16.0 % 25.0-55.0 MONOCYTE % (test code=MO%) 7.0 % 0.0-10.0 EOSINOPHIL % (test code=EO%) 2.8 % 0.0-5.0 BASOPHIL % (test code=BA%) 0.5 % 0.0-1.0 NUCLEATED RBC % (test code=NRBC%) 0.0 % 0-0 NEUTROPHIL # (test code=NT#) 6.20 K/mm3 1.8-7.7 IMMATURE GRANULOCYTE # (test code=IG#) 0.05 x10 3/uL 0-0.03 LYMPHOCYTE # (test code=LY#) 1.36 K/mm3 1.0-5.0 MONOCYTE # (test code=MO#) 0.59 K/mm3 0-0.8 EOSINOPHIL # (test code=EO#) 0.24 K/mm3 0.0-0.5 BASOPHIL # (test code=BA#) 0.04 K/mm3 0.0-0.2 NUCLEATED RBC # (test code=NRBC#) 0.00 K/mm3 0.0-0.1 MANUAL DIFF REQUIRED (test code=MDIFF) NO, ONLY SCAN NEEDED DIFFERENTIAL [id number] 07:00:00* Test Item Value Reference Range Comments STAIN ACCEPTABILITY (test code=STN ACCEPTABLE) CABOT RINGS (test code=CAB) MORPHOLOGY COMMENT (test code=MOC) PLATELET ESTIMATE (test code=PLTEST) PLATELET MORPHOLOGY (test code=PLTMORPH) CBC W/AUTO [id number] 07:00:00* Test Item Value Reference Range Comments WHITE BLOOD CELL (test code=WBC) 8.5 K/mm3 4.5-12.5 RED BLOOD CELL (test code=RBC) 3.01 mill/mm3 4.0-5.8 HEMOGLOBIN (test code=HGB) 7.8 gram/dL 13.0-17.5 HEMATOCRIT (test code=HCT) 26.2 % 42.0-52.0 MEAN CELL VOLUME (test code=MCV) 87.0 fL 80-98 MEAN CELL HGB (test code=MCH) 25.9 picogram 27.0-33.0 MEAN CELL HGB CONCETRATION (test code=MCHC) 29.8 gram/dL 33.0-36.0 RED CELL DISTRIBUTION WIDTH (test code=RDW) 17.3 % 11.6-16.2 RED CELL DISTRIBUTION WIDTH SD (test code=RDW-SD) 55.4 fL 37.0-51.0 PLATELET COUNT (test code=PLT) 293 K/mm3 150-450 MEAN PLATELET VOLUME (test code=MPV) 10.2 fL 6.7-11.0 NEUTROPHIL % (test code=NT%) 73.1 % 39.0-69.0 IMMATURE GRANULOCYTE % (test code=IG%) 0.6 % 0.0-5.0 LYMPHOCYTE % (test code=LY%) 16.0 % 25.0-55.0 MONOCYTE % (test code=MO%) 7.0 % 0.0-10.0 EOSINOPHIL % (test code=EO%) 2.8 % 0.0-5.0 BASOPHIL % (test code=BA%) 0.5 % 0.0-1.0 NUCLEATED RBC % (test code=NRBC%) 0.0 % 0-0 NEUTROPHIL # (test code=NT#) 6.20 K/mm3 1.8-7.7 IMMATURE GRANULOCYTE # (test code=IG#) 0.05 x10 3/uL 0-0.03 LYMPHOCYTE # (test code=LY#) 1.36 K/mm3 1.0-5.0 MONOCYTE # (test code=MO#) 0.59 K/mm3 0-0.8 EOSINOPHIL # (test code=EO#) 0.24 K/mm3 0.0-0.5 BASOPHIL # (test code=BA#) 0.04 K/mm3 0.0-0.2 NUCLEATED RBC # (test code=NRBC#) 0.00 K/mm3 0.0-0.1 MANUAL DIFF REQUIRED (test code=MDIFF) NO, ONLY SCAN NEEDED DIFFERENTIAL [id number] 07:00:00* Test Item Value Reference Range Comments STAIN ACCEPTABILITY (test code=STN ACCEPTABLE) MORPHOLOGY COMMENT (test code=MOC) PLATELET ESTIMATE (test code=PLTEST) PLATELET MORPHOLOGY (test code=PLTMORPH) CBC W/AUTO [id number] 06:59:00* Test Item Value Reference Range Comments WHITE BLOOD CELL (test code=WBC) 8.5 K/mm3 4.5-12.5 RED BLOOD CELL (test code=RBC) 3.01 mill/mm3 4.0-5.8 HEMOGLOBIN (test code=HGB) 7.8 gram/dL 13.0-17.5 HEMATOCRIT (test code=HCT) 26.2 % 42.0-52.0 MEAN CELL VOLUME (test code=MCV) 87.0 fL 80-98 MEAN CELL HGB (test code=MCH) 25.9 picogram 27.0-33.0 MEAN CELL HGB CONCETRATION (test code=MCHC) 29.8 gram/dL 33.0-36.0 RED CELL DISTRIBUTION WIDTH (test code=RDW) 17.3 % 11.6-16.2 RED CELL DISTRIBUTION WIDTH SD (test code=RDW-SD) 55.4 fL 37.0-51.0 PLATELET COUNT (test code=PLT) 293 K/mm3 150-450 MEAN PLATELET VOLUME (test code=MPV) 10.2 fL 6.7-11.0 NEUTROPHIL % (test code=NT%) 73.1 % 39.0-69.0 IMMATURE GRANULOCYTE % (test code=IG%) 0.6 % 0.0-5.0 LYMPHOCYTE % (test code=LY%) 16.0 % 25.0-55.0 MONOCYTE % (test code=MO%) 7.0 % 0.0-10.0 EOSINOPHIL % (test code=EO%) 2.8 % 0.0-5.0 BASOPHIL % (test code=BA%) 0.5 % 0.0-1.0 NUCLEATED RBC % (test code=NRBC%) 0.0 % 0-0 NEUTROPHIL # (test code=NT#) 6.20 K/mm3 1.8-7.7 IMMATURE GRANULOCYTE # (test code=IG#) 0.05 x10 3/uL 0-0.03 LYMPHOCYTE # (test code=LY#) 1.36 K/mm3 1.0-5.0 MONOCYTE # (test code=MO#) 0.59 K/mm3 0-0.8 EOSINOPHIL # (test code=EO#) 0.24 K/mm3 0.0-0.5 BASOPHIL # (test code=BA#) 0.04 K/mm3 0.0-0.2 NUCLEATED RBC # (test code=NRBC#) 0.00 K/mm3 0.0-0.1 MANUAL DIFF REQUIRED (test code=MDIFF) NO, ONLY SCAN NEEDED DIFFERENTIAL [id number] 06:59:00* Test Item Value Reference Range Comments STAIN ACCEPTABILITY (test code=STN ACCEPTABLE) CABOT RINGS (test code=CAB) MORPHOLOGY COMMENT (test code=MOC) PLATELET ESTIMATE (test code=PLTEST) PLATELET MORPHOLOGY (test code=PLTMORPH) CBC W/AUTO [id number] 06:59:00* Test Item Value Reference Range Comments WHITE BLOOD CELL (test code=WBC) 8.5 K/mm3 4.5-12.5 RED BLOOD CELL (test code=RBC) 3.01 mill/mm3 4.0-5.8 HEMOGLOBIN (test code=HGB) 7.8 gram/dL 13.0-17.5 HEMATOCRIT (test code=HCT) 26.2 % 42.0-52.0 MEAN CELL VOLUME (test code=MCV) 87.0 fL 80-98 MEAN CELL HGB (test code=MCH) 25.9 picogram 27.0-33.0 MEAN CELL HGB CONCETRATION (test code=MCHC) 29.8 gram/dL 33.0-36.0 RED CELL DISTRIBUTION WIDTH (test code=RDW) 17.3 % 11.6-16.2 RED CELL DISTRIBUTION WIDTH SD (test code=RDW-SD) 55.4 fL 37.0-51.0 PLATELET COUNT (test code=PLT) 293 K/mm3 150-450 MEAN PLATELET VOLUME (test code=MPV) 10.2 fL 6.7-11.0 NEUTROPHIL % (test code=NT%) 73.1 % 39.0-69.0 IMMATURE GRANULOCYTE % (test code=IG%) 0.6 % 0.0-5.0 LYMPHOCYTE % (test code=LY%) 16.0 % 25.0-55.0 MONOCYTE % (test code=MO%) 7.0 % 0.0-10.0 EOSINOPHIL % (test code=EO%) 2.8 % 0.0-5.0 BASOPHIL % (test code=BA%) 0.5 % 0.0-1.0 NUCLEATED RBC % (test code=NRBC%) 0.0 % 0-0 NEUTROPHIL # (test code=NT#) 6.20 K/mm3 1.8-7.7 IMMATURE GRANULOCYTE # (test code=IG#) 0.05 x10 3/uL 0-0.03 LYMPHOCYTE # (test code=LY#) 1.36 K/mm3 1.0-5.0 MONOCYTE # (test code=MO#) 0.59 K/mm3 0-0.8 EOSINOPHIL # (test code=EO#) 0.24 K/mm3 0.0-0.5 BASOPHIL # (test code=BA#) 0.04 K/mm3 0.0-0.2 NUCLEATED RBC # (test code=NRBC#) 0.00 K/mm3 0.0-0.1 MANUAL DIFF REQUIRED (test code=MDIFF) NO, ONLY SCAN NEEDED DIFFERENTIAL [id number] 06:59:00* Test Item Value Reference Range Comments STAIN ACCEPTABILITY (test code=STN ACCEPTABLE) CABOT RINGS (test code=CAB) MORPHOLOGY COMMENT (test code=MOC) PLATELET ESTIMATE (test code=PLTEST) PLATELET MORPHOLOGY (test code=PLTMORPH) [id number] 05:17:00* Test Item Value Reference Range Comments GLUBED (test code=GLUBED) 190 mg/dL 74-106 [facility] [id number] 23:03:00* Test Item Value Reference Range Comments GLUBED (test code=GLUBED) 207 mg/dL 74-106 [facility] [id number] 20:52:00* Test Item Value Reference Range Comments GLUBED (test code=GLUBED) 210 mg/dL 74-106 Performed by certified cistern room operator at [facility] [id number] 16:02:00* Test Item Value Reference Range Comments GLUBED (test code=GLUBED) 132 mg/dL 74-106 Performed by certified cistern room operator at [facility] [id number] 11:17:00* Test Item Value Reference Range Comments GLUBED (test code=GLUBED) 228 mg/dL 74-106 Performed by certified cistern room operator at [facility] [id number] 08:02:00* Test Item Value Reference Range Comments TROPONIN-I (test code=TROPI) <0.015 ng/mL 0-0.045 COMMENTS TO SMT MACHINE OPERATOR: COLLECT 3 HOURS AFTER PREVIOUS [id number] 06:05:00* Test Item Value Reference Range Comments GLUBED (test code=GLUBED) 74 mg/dL 74-106 Performed by certified cistern room operator at [facility] BASIC METABOLIC [id number] 03:53:00* Test Item Value Reference Range Comments SODIUM (test code=NA) 141 mmol/L 136-145 RESULT VERIFIED BY REPEAT ANALYSIS POTASSIUM (test code=K) 4.5 mmol/L 3.5-5.1 CHLORIDE (test code=CL) 113.0 mmol/L 98-107 CARBON DIOXIDE (test code=CO2) 22.0 mmol/L 21-32 ANION GAP (test code=GAP) 10.5 10-20 GLUCOSE (test code=GLU) 80 mg/dL 74-106 BLOOD UREA NITROGEN (test code=BUN) 37 mg/dL 7-18 GLOMERULAR FILTRATION RATE (test code=GFR) 52 mL/min >=60 Estimated GFR by using Modified MDRD formula.Chronic kidney disease is defined as either kidney damageor GFR <60 mL/min/1.73 m2 for >3 months. CREATININE (test code=CREAT) 1.40 mg/dL 0.7-1.3 BUN/CREATININE RATIO (test code=BUN/CREA) 25.7 10-20 CALCIUM (test code=CA) 8.5 mg/dL 8.5-10.1 [id number] 03:39:00* Test Item Value Reference Range Comments TROPONIN-I (test code=TROPI) <0.015 ng/mL 0-0.045 COMMENTS TO SMT MACHINE OPERATOR: COLLECT 3 HOURS AFTER PREVIOUS [id number] 00:27:00* Test Item Value Reference Range Comments GLYCOSYLATED HEMOGLOBIN (HA1C) (test code=GLYHGB) 7.1 % HbA1 4.8-6.0 ESTIMATED AVERAGE GLUCOSE (test code=EAG) 157 MG/DL LIPID PROFILE (CORONARY RISK)2018-06-06 00:04:00* Test Item Value Reference Range Comments TRIGLYCERIDES (test code=TRIG) 63 mg/dL 20-150 CHOLESTEROL (test code=CHOL) 91 mg/dL 0-200 CHOLESTEROL/HDL RATIO (test code=CHOLHDL) 2.0 RATIO 0-4.9 RISK ASSOCIATED WITH CHOL/HDL RATIOS: Risk Male Female1/2 AVERAGE 3.43 3.27AVERAGE 4.97 4.442X AVERAGE 9.55 7.053X AVERAGE 23.39 11.04 REFERENCE VALUE IS RELATED TO RISK LEVELS ASRECOMMENDED BY THE [facility]. HEART, LUNG, AND BLOOD INST. HDL CHOLESTEROL (test code=HDL) 32 mg/dL 40-60 LIPOPROTEIN LDL (test code=LDL) 356 mg/dL 100-129 RN PERSONNEL, CONTACT PHYSICIAN IMMEDIATELY IF THIS IS A STROKE, AMI OR CAROTID STENOSIS PATIENT WHEN THE LDL >100 (1ST OCCURENCE, THIS ADMISSION) Reference Interval: mg/dL mmol/L Optimal <100 <2.6Near/above optimal 100-129 2.6- 3.3Borderline High 130-159 3.4-4.1High 160-189 4.1-4.9Very High >=190 >=4.9=========This LDL result is a direct measurement.========= LIPID PROFILE (CORONARY RISK)2018-06-06 00:02:00* Test Item Value Reference Range Comments TRIGLYCERIDES (test code=TRIG) 63 mg/dL 20-150 CHOLESTEROL (test code=CHOL) 91 mg/dL 0-200 CHOLESTEROL/HDL RATIO (test code=CHOLHDL) 2.0 RATIO 0-4.9 RISK ASSOCIATED WITH CHOL/HDL RATIOS: Risk Male Female1/2 AVERAGE 3.43 3.27AVERAGE 4.97 4.442X AVERAGE 9.55 7.053X AVERAGE 23.39 11.04 REFERENCE VALUE IS RELATED TO RISK LEVELS ASRECOMMENDED BY THE [facility]. HEART, LUNG, AND BLOOD INST. HDL CHOLESTEROL (test code=HDL) 32 mg/dL 40-60 LIPOPROTEIN LDL (test code=LDL) mg/dL 100-129 URINALYSIS [id number] 19:21:00* Test Item Value Reference Range Comments UA COLOR (test code=COLU) YELLOW YELLOW UA APPEARANCE (test code=APPU) TURBID CLEAR UA GLUCOSE DIPSTICK (test code=DGLUU) NEGATIVE mg/dL NEGATIVE UA BILIRUBIN DIPSTICK (test code=BILU) NEGATIVE mg/dL NEGATIVE UA KETONE DIPSTICK (test code=KETU) Negative mg/dL NEGATIVE UA SPECIFIC GRAVITY (test code=SGU) 1.008 1.001-1.035 UA BLOOD DIPSTICK (test code=EVER) 1+ (Small) NEGATIVE UA PH DIPSTICK (test code=GUIDO) 5.0 5.0-8.0 UA PROTEIN DIPSTICK (test code=PROU) 100 (2+) mg/dL NEGATIVE UA UROBILINIOGEN DIPSTICK (test code=URO) NEGATIVE mg/dL NEGATIVE UA NITRITE DIPSTICK (test code=BETTINA) NEGATIVE NEGATIVE UA LEUKOCYTE ESTERASE W REFLEX (test code=LEUUR) 3+ NEGATIVE UA WBC (test code=WBCU) >50 #/HPF 0-5 UA RBC (test code=RBCU) 11-20 #/HPF 0-5 UA WBC CLUMPS (test code=WBCUCL) >10 /HPF NONE UA BACTERIA (test code=BACU) FEW #/HPF NONE UA RENAL CELLS (test code=ANGELA) 0-2 #/HPF 0-5 UA MUCUS (test code=MUCU) FEW #/LPF FEW Urine Source? Clean CatchURINALYSIS [id number] 19:16:00* Test Item Value Reference Range Comments UA COLOR (test code=COLU) YELLOW YELLOW UA APPEARANCE (test code=APPU) TURBID CLEAR UA GLUCOSE DIPSTICK (test code=DGLUU) NEGATIVE mg/dL NEGATIVE UA BILIRUBIN DIPSTICK (test code=BILU) NEGATIVE mg/dL NEGATIVE UA KETONE DIPSTICK (test code=KETU) Negative mg/dL NEGATIVE UA SPECIFIC GRAVITY (test code=SGU) 1.008 1.001-1.035 UA BLOOD DIPSTICK (test code=EVER) 1+ (Small) NEGATIVE UA PH DIPSTICK (test code=GUIDO) 5.0 5.0-8.0 UA PROTEIN DIPSTICK (test code=PROU) 100 (2+) mg/dL NEGATIVE UA UROBILINIOGEN DIPSTICK (test code=URO) NEGATIVE mg/dL NEGATIVE UA NITRITE DIPSTICK (test code=BETTINA) NEGATIVE NEGATIVE UA LEUKOCYTE ESTERASE W REFLEX (test code=LEUUR) 3+ NEGATIVE UA WBC (test code=WBCU) per HPF 0-5 Urine Source? Clean Catch- PULM VENT PERF [id number] 19:11:00 FAX: Reyna Ramirez DO [place]: B St: REG Name: [facility] SEL[facility] : [birth year] 57 Age/S: 58/M [address] [facility] Unit #: [id number] Loc: [place] [address] Phys: Reyna Ramirez DO Acct: [id number] Dis Date: Status: REG ER PHONE #: [phone] Exam Date: 06/05/2018 1525 FAX #: [phone] Reason: dyspnea, r/o pe EXAMS: CPT CODE: [id number] PULM VENT PERF IMAG 09218 HISTORY: dyspnea, r/o pe EXAM: NUCLEAR PULMONARY V/Q SCAN. COMPARISON: Chest radiograph 3 hours prior was reviewed. FINDINGS: Ventilation scan: After the patient was given 10 mCi Xenon 133 gas to inhale, post erior images were obtained of the lungs in immediate and washout phases. H omogeneous radiopharmaceutical distribution with symmetric washout bilater ally. Perfusion scan: After intravenous injection of 5.5 mCi TC 9 9m MAA, static images were obtained over the lungs in multiple projections . Homogeneous distribution of radiopharmaceutical in both lungs without pleural based segmental perfusion defects. Ventilation and per fusion images are matched in the posterior projection. IMP RESSION: Modified PIOPED II category: PE absent (normal perfus ion) at 1911 Reported and signed by: Rusty Diaz MD CC: Reyna Ramirez DO Technologist: LOPEZ VAUGHAN Trnscrd Date/Time/By: (1910) : By: [email or web address] Orig Print D/T: S: 06/05/2018 (1913) PAGE 1 Signed Report [id number] 16:48:00* Test Item Value Reference Range Comments GLUBED (test code=GLUBED) 90 mg/dL 74-106 Performed by certified cistern room operator at [facility] [id number] 13:29:00* Test Item Value Reference Range Comments D-DIMER (test code=DDIMER) 1825.00 ng/mLFEU 0-500 Results called to [id number] by V.LABBEAN 06/05/18 1329Critical results verified and read back by Nurse? YClinical Cut-off value for D-Dimer is 500 ng/mL FEU. Comment: The [employer] D- Dimer assay is intended for use asan aid in the diagnosis of venous thromboembolism (VTE)[deep vein thrombosis (DVT) or pulmonary embolism (PE)].The measurement of D-Dimer should not be used as an aid inthe diagnosis of VTE, in patient with: -Therapeutic dose anticoagulant therapy for >24 hours - Fibrinolytic therapy within previous 7 days -Trauma or surgery within previous 4 weeks -Disseminated malignancies -Aortic aneurysm -Sepsis, severe infections, pneumonia, severe skin infections -Liver cirrhosis - BASIC METABOLIC [id number] 13:25:00* Test Item Value Reference Range Comments SODIUM (test code=NA) 136 mmol/L 136-145 POTASSIUM (test code=K) 5.0 mmol/L 3.5-5.1 CHLORIDE (test code=CL) 108.0 mmol/L 98-107 CARBON DIOXIDE (test code=CO2) 22.0 mmol/L 21-32 ANION GAP (test code=GAP) 11.0 10-20 GLUCOSE (test code=GLU) 48 mg/dL 74-106 Results called to ALAN PANDYA by V.LABKORTNEY 06/05/18 1325Critical results verified and read back by Nurse? Y BLOOD UREA NITROGEN (test code=BUN) 39 mg/dL 7-18 GLOMERULAR FILTRATION RATE (test code=GFR) 32 mL/min >=60 Estimated GFR by using Modified MDRD formula.Chronic kidney disease is defined as either kidney damageor GFR <60 mL/min/1.73 m2 for >3 months. CREATININE (test code=CREAT) 2.10 mg/dL 0.7-1.3 BUN/CREATININE RATIO (test code=BUN/CREA) 18.8 10-20 CALCIUM (test code=CA) 8.2 mg/dL 8.5-10.1 [id number] 13:25:00* Test Item Value Reference Range Comments TROPONIN-I (test code=TROPI) <0.015 ng/mL 0-0.045 BASIC METABOLIC [id number] 13:14:00* Test Item Value Reference Range Comments SODIUM (test code=NA) 136 mmol/L 136-145 POTASSIUM (test code=K) 5.0 mmol/L 3.5-5.1 CHLORIDE (test code=CL) 108.0 mmol/L 98-107 CARBON DIOXIDE (test code=CO2) mmol/L 21-32 ANION GAP (test code=GAP) 10-20 GLUCOSE (test code=GLU) mg/dL 74-106 BLOOD UREA NITROGEN (test code=BUN) mg/dL 7-18 GLOMERULAR FILTRATION RATE (test code=GFR) mL/min >=60 CREATININE (test code=CREAT) mg/dL 0.7-1.3 BUN/CREATININE RATIO (test code=BUN/CREA) 10-20 CALCIUM (test code=CA) mg/dL 8.5-10.1 [id number] 13:14:00* Test Item Value Reference Range Comments TROPONIN-I (test code=TROPI) ng/mL 0-0.045 CBC W/O [id number] 13:06:00* Test Item Value Reference Range Comments WHITE BLOOD CELL (test code=WBC) 9.2 K/mm3 4.5-12.5 RED BLOOD CELL (test code=RBC) 3.23 mill/mm3 4.0-5.8 HEMOGLOBIN (test code=HGB) 8.3 gram/dL 13.0-17.5 HEMATOCRIT (test code=HCT) 28.4 % 42.0-52.0 MEAN CELL VOLUME (test code=MCV) 87.9 fL 80-98 MEAN CELL HGB (test code=MCH) 25.7 picogram 27.0-33.0 MEAN CELL HGB CONCETRATION (test code=MCHC) 29.2 gram/dL 33.0-36.0 RED CELL DISTRIBUTION WIDTH (test code=RDW) 17.6 % 11.6-16.2 PLATELET COUNT (test code=PLT) 314 K/mm3 150-450 MEAN PLATELET VOLUME (test code=MPV) 10.1 fL 6.7-11.0 - XR CHEST 1 [id number] 12:00:00 FAX: Greg Celaya ART DEALER [phone] [place]: St: REG Name: BRADF[facility] SELF [facility] : [birth year] 57 Age/S: 58/M [address] [facility] Unit #: [id number] Loc: [place] [address] Phys: Greg Celaya ART DEALER Acct: [id number] Dis Date: Status: REG ER PHONE #: [phone] Exam Date: 06/05/2018 1140 FAX #: [phone] Reason: CHEST PAIN EXAMS: CPT CODE: [id number] XR CHEST 1 V 76929 EXAM: Chest x-ray, one view; INFORMATION: Chest pain; FINDINGS: Except for small platelike atelectasis above the left costophrenic angle, the lungs are cl ear. Previously seen pulmonary edema has completely resolved. The he art is borderline in size. A stent is seen in the LAD. Well-positioned rig ht IJ Port-A-Cath. IMPRESSION: No evidence of active car diopulmonary disease. at 1200 Reported and signed by: Nestor Ramirez M.D. CC: Greg Celaya NP Technologist: Lucy WATSON(R) Trnscrd Date/Time/By: (1200) : By: Rashmi Orig Print D/T: S: 06/05/2018 (8728) PAGE 1 Signed Report [id number] 21:11:00* Test Item Value Reference Range Comments GLUBED (test code=GLUBED) 155 mg/dL 74-106 Performed by certified cistern room operator at [facility] [id number] 20:45:00* Test Item Value Reference Range Comments GLUBED (test code=GLUBED) 112 mg/dL 74-106 Performed by certified cistern room operator at [facility] [id number] 17:35:00* Test Item Value Reference Range Comments GLUBED (test code=GLUBED) 115 mg/dL 74-106 Performed by certified cistern room operator at [facility] [id number] 13:16:00* Test Item Value Reference Range Comments GLUBED (test code=GLUBED) 118 mg/dL 74-106 Performed by certified cistern room operator at [facility] [id number] 08:43:00* Test Item Value Reference Range Comments GLUBED (test code=GLUBED) 211 mg/dL 74-106 Performed by certified cistern room operator at [facility] [id number] 20:17:00* Test Item Value Reference Range Comments GLUBED (test code=GLUBED) 122 mg/dL 74-106 [facility]tern [facility]~ HGB [id number] 19:09:00* Test Item Value Reference Range Comments HEMOGLOBIN (test code=HGB) 10.3 gram/dL 13.0-17.5 RESULT VERIFIED BY REPEAT ANALYSIS HEMATOCRIT (test code=HCT) 34.5 % 42.0-52.0 [id number] 15:18:00* Test Item Value Reference Range Comments GLUBED (test code=GLUBED) 80 mg/dL 74-106 Performed by certified cistern room operator at [facility] [id number] 11:31:00* Test Item Value Reference Range Comments GLUBED (test code=GLUBED) 163 mg/dL 74-106 Performed by certified cistern room operator at [facility] CBC W/AUTO [id number] 10:08:00* Test Item Value Reference Range Comments WHITE BLOOD CELL (test code=WBC) 9.6 K/mm3 4.5-12.5 RED BLOOD CELL (test code=RBC) 2.78 mill/mm3 4.0-5.8 HEMOGLOBIN (test code=HGB) 7.4 gram/dL 13.0-17.5 HEMATOCRIT (test code=HCT) 25.5 % 42.0-52.0 MEAN CELL VOLUME (test code=MCV) 91.7 fL 80-98 MEAN CELL HGB (test code=MCH) 26.6 picogram 27.0-33.0 MEAN CELL HGB CONCETRATION (test code=MCHC) 29.0 gram/dL 33.0-36.0 RED CELL DISTRIBUTION WIDTH (test code=RDW) 17.1 % 11.6-16.2 RED CELL DISTRIBUTION WIDTH SD (test code=RDW-SD) 57.4 fL 37.0-51.0 PLATELET COUNT (test code=PLT) 407 K/mm3 150-450 MEAN PLATELET VOLUME (test code=MPV) 9.7 fL 6.7-11.0 NEUTROPHIL % (test code=NT%) 75.7 % 39.0-69.0 IMMATURE GRANULOCYTE % (test code=IG%) 0.5 % 0.0-5.0 LYMPHOCYTE % (test code=LY%) 15.4 % 25.0-55.0 MONOCYTE % (test code=MO%) 4.3 % 0.0-10.0 EOSINOPHIL % (test code=EO%) 3.7 % 0.0-5.0 BASOPHIL % (test code=BA%) 0.4 % 0.0-1.0 NUCLEATED RBC % (test code=NRBC%) 0.0 % 0-0 NEUTROPHIL # (test code=NT#) 7.28 K/mm3 1.8-7.7 IMMATURE GRANULOCYTE # (test code=IG#) 0.05 x10 3/uL 0-0.03 LYMPHOCYTE # (test code=LY#) 1.48 K/mm3 1.0-5.0 MONOCYTE # (test code=MO#) 0.41 K/mm3 0-0.8 EOSINOPHIL # (test code=EO#) 0.36 K/mm3 0.0-0.5 BASOPHIL # (test code=BA#) 0.04 K/mm3 0.0-0.2 NUCLEATED RBC # (test code=NRBC#) 0.00 K/mm3 0.0-0.1 MANUAL DIFF REQUIRED (test code=MDIFF) NO, ONLY SCAN NEEDED DIFFERENTIAL [id number] 10:08:00* Test Item Value Reference Range Comments STAIN ACCEPTABILITY (test code=STN ACCEPTABLE) STAIN ACCEPTABLE POLYCHROMASIA (test code=POLC) 3+ ANISOCYTOSIS (test code=ANISO) 1+ MACROCYTOSIS (test code=MACR) 1+ ELLIPTOCYTES (test code=ELL) 1+ PLATELET ESTIMATE (test code=PLTEST) ADEQUATE PLATELET MORPHOLOGY (test code=PLTMORPH) APPEAR LARGE COMPREHENSIVE METABOLIC [id number] 09:42:00* Test Item Value Reference Range Comments SODIUM (test code=NA) 142 mmol/L 136-145 POTASSIUM (test code=K) 4.3 mmol/L 3.5-5.1 CHLORIDE (test code=CL) 115.0 mmol/L 98-107 CARBON DIOXIDE (test code=CO2) 19.0 mmol/L 21-32 ANION GAP (test code=GAP) 12.3 10-20 GLUCOSE (test code=GLU) 176 mg/dL 74-106 BLOOD UREA NITROGEN (test code=BUN) 15 mg/dL 7-18 GLOMERULAR FILTRATION RATE (test code=GFR) 56 mL/min >=60 Estimated GFR by using Modified MDRD formula.Chronic kidney disease is defined as either kidney damageor GFR <60 mL/min/1.73 m2 for >3 months. CREATININE (test code=CREAT) 1.30 mg/dL 0.7-1.3 BUN/CREATININE RATIO (test code=BUN/CREA) 11.2 10-20 TOTAL PROTEIN (test code=PROT) 9.3 gram/dL 6.4-8.2 ALBUMIN (test code=ALB) 2.2 g/dL 3.4-5.0 GLOBULIN (test code=GLOB) 7.1 gram/dL 2.7-4.2 ALBUMIN/GLOBULIN RATIO (test code=A/G) 0.3 0.75-1.50 CALCIUM (test code=CA) 8.2 mg/dL 8.5-10.1 BILIRUBIN TOTAL (test code=BILT) 0.20 mg/dL 0.0-1.0 SGOT/AST (test code=AST) 13 IUnit/L 15-37 SGPT/ALT (test code=ALT) 9 IUnit/L 12-78 ALKALINE PHOSPHATASE TOTAL (test code=ALKP) 107 IUnit/L 45-117 Note change in reference range due to change in reagent. CBC W/AUTO [id number] 09:38:00* Test Item Value Reference Range Comments WHITE BLOOD CELL (test code=WBC) 9.6 K/mm3 4.5-12.5 RED BLOOD CELL (test code=RBC) 2.78 mill/mm3 4.0-5.8 HEMOGLOBIN (test code=HGB) 7.4 gram/dL 13.0-17.5 HEMATOCRIT (test code=HCT) 25.5 % 42.0-52.0 MEAN CELL VOLUME (test code=MCV) 91.7 fL 80-98 MEAN CELL HGB (test code=MCH) 26.6 picogram 27.0-33.0 MEAN CELL HGB CONCETRATION (test code=MCHC) 29.0 gram/dL 33.0-36.0 RED CELL DISTRIBUTION WIDTH (test code=RDW) 17.1 % 11.6-16.2 RED CELL DISTRIBUTION WIDTH SD (test code=RDW-SD) 57.4 fL 37.0-51.0 PLATELET COUNT (test code=PLT) 407 K/mm3 150-450 MEAN PLATELET VOLUME (test code=MPV) 9.7 fL 6.7-11.0 NEUTROPHIL % (test code=NT%) 75.7 % 39.0-69.0 IMMATURE GRANULOCYTE % (test code=IG%) 0.5 % 0.0-5.0 LYMPHOCYTE % (test code=LY%) 15.4 % 25.0-55.0 MONOCYTE % (test code=MO%) 4.3 % 0.0-10.0 EOSINOPHIL % (test code=EO%) 3.7 % 0.0-5.0 BASOPHIL % (test code=BA%) 0.4 % 0.0-1.0 NUCLEATED RBC % (test code=NRBC%) 0.0 % 0-0 NEUTROPHIL # (test code=NT#) 7.28 K/mm3 1.8-7.7 IMMATURE GRANULOCYTE # (test code=IG#) 0.05 x10 3/uL 0-0.03 LYMPHOCYTE # (test code=LY#) 1.48 K/mm3 1.0-5.0 MONOCYTE # (test code=MO#) 0.41 K/mm3 0-0.8 EOSINOPHIL # (test code=EO#) 0.36 K/mm3 0.0-0.5 BASOPHIL # (test code=BA#) 0.04 K/mm3 0.0-0.2 NUCLEATED RBC # (test code=NRBC#) 0.00 K/mm3 0.0-0.1 MANUAL DIFF REQUIRED (test code=MDIFF) NO, ONLY SCAN NEEDED DIFFERENTIAL [id number] 09:38:00* Test Item Value Reference Range Comments STAIN ACCEPTABILITY (test code=STN ACCEPTABLE) CABOT RINGS (test code=CAB) MORPHOLOGY COMMENT (test code=MOC) PLATELET ESTIMATE (test code=PLTEST) PLATELET MORPHOLOGY (test code=PLTMORPH) CBC W/AUTO [id number] 09:38:00* Test Item Value Reference Range Comments WHITE BLOOD CELL (test code=WBC) 9.6 K/mm3 4.5-12.5 RED BLOOD CELL (test code=RBC) 2.78 mill/mm3 4.0-5.8 HEMOGLOBIN (test code=HGB) 7.4 gram/dL 13.0-17.5 HEMATOCRIT (test code=HCT) 25.5 % 42.0-52.0 MEAN CELL VOLUME (test code=MCV) 91.7 fL 80-98 MEAN CELL HGB (test code=MCH) 26.6 picogram 27.0-33.0 MEAN CELL HGB CONCETRATION (test code=MCHC) 29.0 gram/dL 33.0-36.0 RED CELL DISTRIBUTION WIDTH (test code=RDW) 17.1 % 11.6-16.2 RED CELL DISTRIBUTION WIDTH SD (test code=RDW-SD) 57.4 fL 37.0-51.0 PLATELET COUNT (test code=PLT) 407 K/mm3 150-450 MEAN PLATELET VOLUME (test code=MPV) 9.7 fL 6.7-11.0 NEUTROPHIL % (test code=NT%) 75.7 % 39.0-69.0 IMMATURE GRANULOCYTE % (test code=IG%) 0.5 % 0.0-5.0 LYMPHOCYTE % (test code=LY%) 15.4 % 25.0-55.0 MONOCYTE % (test code=MO%) 4.3 % 0.0-10.0 EOSINOPHIL % (test code=EO%) 3.7 % 0.0-5.0 BASOPHIL % (test code=BA%) 0.4 % 0.0-1.0 NUCLEATED RBC % (test code=NRBC%) 0.0 % 0-0 NEUTROPHIL # (test code=NT#) 7.28 K/mm3 1.8-7.7 IMMATURE GRANULOCYTE # (test code=IG#) 0.05 x10 3/uL 0-0.03 LYMPHOCYTE # (test code=LY#) 1.48 K/mm3 1.0-5.0 MONOCYTE # (test code=MO#) 0.41 K/mm3 0-0.8 EOSINOPHIL # (test code=EO#) 0.36 K/mm3 0.0-0.5 BASOPHIL # (test code=BA#) 0.04 K/mm3 0.0-0.2 NUCLEATED RBC # (test code=NRBC#) 0.00 K/mm3 0.0-0.1 MANUAL DIFF REQUIRED (test code=MDIFF) NO, ONLY SCAN NEEDED DIFFERENTIAL [id number] 09:38:00* Test Item Value Reference Range Comments STAIN ACCEPTABILITY (test code=STN ACCEPTABLE) CABOT RINGS (test code=CAB) MORPHOLOGY COMMENT (test code=MOC) PLATELET ESTIMATE (test code=PLTEST) PLATELET MORPHOLOGY (test code=PLTMORPH) CBC W/AUTO [id number] 09:38:00* Test Item Value Reference Range Comments WHITE BLOOD CELL (test code=WBC) 9.6 K/mm3 4.5-12.5 RED BLOOD CELL (test code=RBC) 2.78 mill/mm3 4.0-5.8 HEMOGLOBIN (test code=HGB) 7.4 gram/dL 13.0-17.5 HEMATOCRIT (test code=HCT) 25.5 % 42.0-52.0 MEAN CELL VOLUME (test code=MCV) 91.7 fL 80-98 MEAN CELL HGB (test code=MCH) 26.6 picogram 27.0-33.0 MEAN CELL HGB CONCETRATION (test code=MCHC) 29.0 gram/dL 33.0-36.0 RED CELL DISTRIBUTION WIDTH (test code=RDW) 17.1 % 11.6-16.2 RED CELL DISTRIBUTION WIDTH SD (test code=RDW-SD) 57.4 fL 37.0-51.0 PLATELET COUNT (test code=PLT) 407 K/mm3 150-450 MEAN PLATELET VOLUME (test code=MPV) 9.7 fL 6.7-11.0 NEUTROPHIL % (test code=NT%) 75.7 % 39.0-69.0 IMMATURE GRANULOCYTE % (test code=IG%) 0.5 % 0.0-5.0 LYMPHOCYTE % (test code=LY%) 15.4 % 25.0-55.0 MONOCYTE % (test code=MO%) 4.3 % 0.0-10.0 EOSINOPHIL % (test code=EO%) 3.7 % 0.0-5.0 BASOPHIL % (test code=BA%) 0.4 % 0.0-1.0 NUCLEATED RBC % (test code=NRBC%) 0.0 % 0-0 NEUTROPHIL # (test code=NT#) 7.28 K/mm3 1.8-7.7 IMMATURE GRANULOCYTE # (test code=IG#) 0.05 x10 3/uL 0-0.03 LYMPHOCYTE # (test code=LY#) 1.48 K/mm3 1.0-5.0 MONOCYTE # (test code=MO#) 0.41 K/mm3 0-0.8 EOSINOPHIL # (test code=EO#) 0.36 K/mm3 0.0-0.5 BASOPHIL # (test code=BA#) 0.04 K/mm3 0.0-0.2 NUCLEATED RBC # (test code=NRBC#) 0.00 K/mm3 0.0-0.1 MANUAL DIFF REQUIRED (test code=MDIFF) NO, ONLY SCAN NEEDED DIFFERENTIAL [id number] 09:38:00* Test Item Value Reference Range Comments STAIN ACCEPTABILITY (test code=STN ACCEPTABLE) MORPHOLOGY COMMENT (test code=MOC) PLATELET ESTIMATE (test code=PLTEST) PLATELET MORPHOLOGY (test code=PLTMORPH) CBC W/AUTO [id number] 09:38:00* Test Item Value Reference Range Comments WHITE BLOOD CELL (test code=WBC) 9.6 K/mm3 4.5-12.5 RED BLOOD CELL (test code=RBC) 2.78 mill/mm3 4.0-5.8 HEMOGLOBIN (test code=HGB) 7.4 gram/dL 13.0-17.5 HEMATOCRIT (test code=HCT) 25.5 % 42.0-52.0 MEAN CELL VOLUME (test code=MCV) 91.7 fL 80-98 MEAN CELL HGB (test code=MCH) 26.6 picogram 27.0-33.0 MEAN CELL HGB CONCETRATION (test code=MCHC) 29.0 gram/dL 33.0-36.0 RED CELL DISTRIBUTION WIDTH (test code=RDW) 17.1 % 11.6-16.2 RED CELL DISTRIBUTION WIDTH SD (test code=RDW-SD) 57.4 fL 37.0-51.0 PLATELET COUNT (test code=PLT) 407 K/mm3 150-450 MEAN PLATELET VOLUME (test code=MPV) 9.7 fL 6.7-11.0 NEUTROPHIL % (test code=NT%) 75.7 % 39.0-69.0 IMMATURE GRANULOCYTE % (test code=IG%) 0.5 % 0.0-5.0 LYMPHOCYTE % (test code=LY%) 15.4 % 25.0-55.0 MONOCYTE % (test code=MO%) 4.3 % 0.0-10.0 EOSINOPHIL % (test code=EO%) 3.7 % 0.0-5.0 BASOPHIL % (test code=BA%) 0.4 % 0.0-1.0 NUCLEATED RBC % (test code=NRBC%) 0.0 % 0-0 NEUTROPHIL # (test code=NT#) 7.28 K/mm3 1.8-7.7 IMMATURE GRANULOCYTE # (test code=IG#) 0.05 x10 3/uL 0-0.03 LYMPHOCYTE # (test code=LY#) 1.48 K/mm3 1.0-5.0 MONOCYTE # (test code=MO#) 0.41 K/mm3 0-0.8 EOSINOPHIL # (test code=EO#) 0.36 K/mm3 0.0-0.5 BASOPHIL # (test code=BA#) 0.04 K/mm3 0.0-0.2 NUCLEATED RBC # (test code=NRBC#) 0.00 K/mm3 0.0-0.1 MANUAL DIFF REQUIRED (test code=MDIFF) NO, ONLY SCAN NEEDED DIFFERENTIAL [id number] 09:38:00* Test Item Value Reference Range Comments STAIN ACCEPTABILITY (test code=STN ACCEPTABLE) CABOT RINGS (test code=CAB) MORPHOLOGY COMMENT (test code=MOC) PLATELET ESTIMATE (test code=PLTEST) PLATELET MORPHOLOGY (test code=PLTMORPH) COMPREHENSIVE METABOLIC [id number] 09:33:00* Test Item Value Reference Range Comments SODIUM (test code=NA) 142 mmol/L 136-145 POTASSIUM (test code=K) 4.3 mmol/L 3.5-5.1 CHLORIDE (test code=CL) 115.0 mmol/L 98-107 CARBON DIOXIDE (test code=CO2) mmol/L 21-32 ANION GAP (test code=GAP) 10-20 GLUCOSE (test code=GLU) mg/dL 74-106 BLOOD UREA NITROGEN (test code=BUN) mg/dL 7-18 GLOMERULAR FILTRATION RATE (test code=GFR) mL/min >=60 CREATININE (test code=CREAT) mg/dL 0.7-1.3 BUN/CREATININE RATIO (test code=BUN/CREA) 10-20 TOTAL PROTEIN (test code=PROT) gram/dL 6.4-8.2 ALBUMIN (test code=ALB) g/dL 3.4-5.0 GLOBULIN (test code=GLOB) gram/dL 2.7-4.2 ALBUMIN/GLOBULIN RATIO (test code=A/G) 0.75-1.50 CALCIUM (test code=CA) mg/dL 8.5-10.1 BILIRUBIN TOTAL (test code=BILT) mg/dL 0.0-1.0 SGOT/AST (test code=AST) IUnit/L 15-37 SGPT/ALT (test code=ALT) IUnit/L 12-78 ALKALINE PHOSPHATASE TOTAL (test code=ALKP) IUnit/L 45-117 ANG, CV ACCESS, [id number] 18:30:00Reason for Exam:->Malignant neoplasm of rectumFINAL REPORT Right internal jugular chest port insertion [...] the patient's medical record by the nurse. Detasseler: Arvind Rendon MD Mixer Attendant: Bere Douglas (fellow). Approach: Right internal jugular vein Estimated blood loss: < 5 cc. Specimen: None. Fluoroscopy Time: 0.6 min.Reference Air Kerma (Ka, r): 2.1 mGy. Technique: [...] needle into the right atrium. A 4 Austrian micropuncture sheath was placed a 0.035 wire was advanced into the IVC. A subcutaneous tunnel and pocket were created in the right anterior chest wall by blunt dissection. The pocket was flushed with antibiotic solution. A 6 Austrian Bard single lumen power injectable port was [...] and aspirated easily following placement. The skin inc ision was closed with Monocryl and Dermabond. The small jugular incision site w as closed using Dermabond. The patient tolerated the procedure well and left th e department in the same condition. Patient received 1 gram of Vancomycin intrav enously pre-procedure. Results: Spot radiograph of the chest demonstr ates the new right IJ Port-A-Cath to lie in the expected position with its tip o verlying the cavoatrial junction. Impression: Rosas ccessful, uncomplicated placement of a right internal jugular chest port using s onographic and fluoroscopic guidance and conscious sedation. The port is ready f or immediate use. Signed: Arvind Rendon Verified Date/Time: 10/08 18:30:43 Reading Location: [place] [id number] Angio Body Reading Room Elect ronically signed by: ARVIND RENDON MD on 10/26/2017 06:30 PM PT/APTT 2017-10-26 06:45:00* Test Item Value Reference Range Comments PROTIME (BEAKER) (test nyfc=583) 13.4 seconds 11.7-14.7 INR (BEAKER) (test ogff=685) 1.0 <=5.9 PARTIAL THROMBOPLASTIN TIME (BEAKER) (test qxgr=815) 31.6 seconds 22.5-36.0 RECOMMENDED COUMADIN/WARFARIN INR THERAPY RANGESSTANDARD DOSE: 2.0 - 3.0 Inclu elder: PROPHYLAXIS for venous thrombosis, systemic embolization; TREATMENT for harshad ous thrombosis and/or pulmonary embolus.HIGH RISK: Target INR is 2.5-3.5 for pat ients with mechanical heart valves.PLATELET [id number] 06:39:00* Test Item Value Reference Range Comments PLATELET COUNT (BEAKER) (test epvm=415) 370 K/CU MM 150-450 [id number] 11:04:00Medical Cytology Report Case: [id number] Authorizing Provider: Marcelina Morel MD Collected: 04/05/2017 0936 Ordering Location: [facility] Radiology Main Received: 04/05/2017 1137 Pathologist: Cary Linton MD Specimen: Lymph Node, Inguinal, Right RIGHT INGUINAL LYMPH NODE, FNA AND CORE BIOPSY BY RADIOLOGIST (DIRECT SMEARS): - NEGATIVE FOR EPITHELIAL MALIGNANCY - FOCAL FOREIGN BODY TYPE GIANT CELL REACTION - AE1/AE3 AND CAM 5.2 IMMUNOHISTOCHEMICAL STAINS ARE NEGATIVE - SEE COMMENT Signing Pathologist Direct Phone Line: [phone] signed by Cary Linton MD on 04/12/2017 at 11:04 AMPlease refer to case [id number] for additional [id number], 62401; 71837; 30820Dbbtmlmz right inguinal lymph node; history of colon cancerRIGHT INGUINAL LYMPH NODE FNA AND CORE BIOPSY3 passes; 6 direct smear slides Core biopsy: 2.0 cm white fragment; 1.5 cm red/white fragementCollected: [id number]: [id number] following special studies were performed on this case and the interpretation is incorporated in the diagnostic report above:CAM5.2; AE1/AE3The immunohistochemistry test was developed and its performance characteristics determined by [facility], Pathology Laboratory. It has not been cleared or approved by the U.S. Food and Drug Administration. The FDA has determined that such clearance or approval is not necessary. The test is used for clinical purposes. It should not be regarded as investigational or for research. This laboratory is certified under the Clinical Laboratory Improvement Amendments of 1988 (CLIA-88) as qualified to perform high complexity clinical laboratory testing.[facility], Department of Pathology, [address] [place] [address], [facility], [facility] of P [facility], [address] [place] [id number], FFAYKP EXAM 2017-04-10 08:40:00Surgical Pathology Report Case: [id number] Authorizing Provider: Marcelina Morel MD Collected: 04/05/2017 1604 Ordering Location: [facility] Patient Lab Received: 04/05/2017 1602 Pathologist: Rafy Jacobson MD Specimen: Groin, Left PART A LEFT GROIN LYMPH NODE, CORE NEEDLE BIOPSY:LYMPH NODE WITH INCREASED KAPPA PREDOMINANT PLASMA CELL POPULATION, INDETERMINATE IN NATURE BUT FAVORED TO BE REACTIVE.NEGATIVE FOR CARCINOMA.SEE DIAGNOSTIC COMMENT. Signing Pathologist Direct Phone Line: [phone] signed by Rafy Jacobson MD on 04/10/2017 at 8:40 AMHistological sections demonstrate a core needle biopsy of a lymph node with increased plasma cells. Immunohistochemical studies for CD20 demonstrate small mature scattered B cell. CD3/CD5 demonstrate small mature scattered T cells. There is no aberrant co-expression of CD20 and CD5. BCL6 and CD10 do not demonstrate germinal centers. BCL2 immunostain pattern is comparable to the pattern seen in the T cell distribution. Proliferative index by Ki-67 is approximately 5%. Immunostain for keratin is negative. Cyclin D1 is ne gative.Immunostains for kappa and lambda light chains demonstrate increased plas ma cells which have a kappa light chain predominant distribution. This finding i s favored to be reactive but is ultimately indeterminate and warrants clinical f ollow up to determine the need for possible excisional biopsy. Correlation with clinical presentation is recommended to determine the need for an excisional bio psy. 53638, 95357, 86689k64, 82778Sucrpl cancer Left inguinal lymph node biopsy Received in formalin labeled "left groin core node" are two camargo-white cores of soft tissue measuring 1.0 cm and 1.5 cm in length, entirely submitted in cassett e A1. DB/plThe following special studies were performed on this case and the int erpretation is incorporated in the diagnostic report above:BLOCK A1- KERATIN, CD 30, CD20, CD5, CD3, CYCLIN D1, CD10, BCL2, BCL6, KI-67, KAPPA LIGHT CHAIN, LAMBD A LIGHT CHAIN.The immunohistochemistry test was developed and its performance ch aracteristics determined by [facility], Pathology Laboratory. It has not been cleared or approved by the U.S. Food and Drug Administration. [facility] FDA has determined that such clearance or approval is not necessary. The test is used for clinical purposes. It should not be regarded as investigational or f or research. This laboratory is certified under the Clinical Laboratory Improvem ent Amendments of 1988 (CLIA-88) as qualified to perform high complexity clinica l laboratory testing.U/S, CORE [id number] 15:33:00Reason for Exam:->RECTAL CANCERFINAL REPORT Procedures: Ultrasound-guided fine- needle and core biopsies of right inguinal lymph node and core biopsy of left inguinal lymph node, 04/05/2017 HISTORY: Prior colonic cancer, suspicious findings an inguinal lymph nodes Anesthesia: 1% lidocaine Modality: Ultrasound Approach: Large right and left inguinal lymph nodes Preliminary scanning discloses an enlarged lymph node in the right groin measuring 3.8 x 1.3 x 2.2 cm. A few other smaller lymph nodes are also present. The left groin, there is a dominant 4.1 x 1.3 x 2.5 cm lymph node. A few other tiny lymph nodes are also present. After obtaining informed consent and using real-time ultrasound guidance, the right inguinal lymph node was biopsied with 25-gauge needles. Three passes were made and samples were provided to pathology. In addition, two 18-gauge core biopsies were obtained from this lymph node with samples placed in formalin. The left groin lymph node was then biopsied using 18-gauge core needle. Two passes were made and samples were placed in formalin. CONCLUSION: Biopsies of bilateral enlarged inguinal lymph nodes.. Signed: Sary Arzola Verified Date/Time: 04/05/2017 15:33:23 Reading Location: [address] Ultrasound Reading Room U/S, CORE [id number] 15:33:00Rectal CancerReason for exam:->Rectal CancerFINAL REPORT Procedures: Ultrasound- guided fine-needle and core biopsies of right inguinal lymph node and core biopsy of left inguinal lymph node, 04/05/2017 HISTORY: Prior colonic cancer, suspicious findings an inguinal lymph nodes Anesthesia: 1% lidocaine Modality: Ultrasound Approach: Large right and left inguinal lymph nodes Preliminary scanning discloses an enlarged lymph node in the right groin measuring 3.8 x 1.3 x 2.2 cm. A few other smaller lymph nodes are also present. The left groin, there is a dominant 4.1 x 1.3 x 2.5 cm lymph node. A few other tiny lymph nodes are also present. After obtaining informed consent and using real-time ultrasound guidance, the right inguinal lymph node was biopsied with 25-gauge needles. Three passes were made and samples were provided to pathology. In addition, two 18-gauge core biopsies were obtained from this lymph node with samples placed in formalin. The left groin lymph node was then biopsied using 18-gauge core needle. Two passes were made and samples were placed in formalin. CONCLUSION: Biopsies of bilateral enlarged inguinal lymph nodes.. Signed: Sary Arzola Verified Date/Time: 04/05/2017 15:33:23 Reading Location: [address] Ultrasound Reading Room UE [id number] 13:17:00 Surgical Pathology Report Case: [id number] Authorizing Provider: Satish García, Collected: 11/23/2016 1402 Ordering Location: [facility] PERIOPERATIVE Received: 11/23/2016 1545 SERVICES Pathologist: Angel Brown MD Specimen: Leg, Right, Right amputated leg BONE AND SOFT TISSUE, RIGHT LEG, A MPUTATION: -GANGRENOUS NECROSIS WITH ULCERATION EXTENDING TO SOFT TISSUE MA RGIN -CHRONIC OSTEOMYELITIS EXTENDING TO BONE MARGIN -COMPLICATED ATHE ROSCLEROSIS WITH COMPLETE OCCLUSION AND RECANALIZATION Signing Pathologist Direct Phone Line: [phone] signed by Angel Brown MD on 11/30/2016 at 1:17 [id number] right footRight amputated legReceived fresh labeled "leg, right" is a right below the knee amputation specimen which is status post transmetatarsal amputation measuring 16.5 cm from the stump to t he heel and 27.5 cm from the heel to the resection margin. There is a portion of tibia and fibula protruding from the resection margin measuring 2.5 cm and 3.5 cm in length respectively. The stump and the entire plantar aspect of the foot i s yellow-green to black, necrotic and mummified. The remainder of the specimen i s covered by pale rodgers wrinkled keratotic skin. The resection margin appears viab le. Sectioning of the anterior and posterior tibial arteries reveal focal athero sclerosis. Section code: A1, parallel soft tissue resection margin; A2-A4, repre sentative sections of stump and plantar aspect of foot; A5, heel bone underlying necrotic tissue for decalcification; A6, bone marrow from tibial resection jair in; A7, anterior tibial artery for decalcification; A8, posterior tibial artery for decalcification. DB/plThe soft tissue sections demonstrate marked acute and chronic inflammation with necrosis and overlying ulceration of the epidermis. T he inflammation extends to the margin. The bone shows marrow necrosis with fibr ovascular replacement, chronic inflammation, and bony remodeling and extends to the bone margin. Complicated atherosclerosis with complete occlusion of vessels with recanalization is noted.POCT-GLUCOSE [id number] 22:03:00* Test Item Value Reference Range Comments POC-GLUCOSE METER (BEAKER) (test mxat=1826) 219 mg/dL 70-110 TESTED AT [address] [address] POCT-GLUCOSE [id number] 17:30:00* Test Item Value Reference Range Comments POC-GLUCOSE METER (BEAKER) (test fzxa=1602) 152 mg/dL 70-110 TESTED AT [address] [address] POCT-GLUCOSE [id number] 11:13:00* Test Item Value Reference Range Comments POC-GLUCOSE METER (BEAKER) (test wcvq=1437) 215 mg/dL 70-110 TESTED AT [address] [address] POCT-GLUCOSE [id number] 07:06:00* Test Item Value Reference Range Comments POC-GLUCOSE METER (BEAKER) (test jxhc=4323) 195 mg/dL 70-110 TESTED AT [address] [address] POCT-GLUCOSE [id number] 21:52:00* Test Item Value Reference Range Comments POC-GLUCOSE METER (BEAKER) (test yenh=0857) 248 mg/dL 70-110 TESTED AT [address] [address] POCT-GLUCOSE [id number] 17:21:00* Test Item Value Reference Range Comments POC-GLUCOSE METER (BEAKER) (test ozho=6180) 166 mg/dL 70-110 TESTED AT [address] [address] POCT-GLUCOSE [id number] 11:46:00* Test Item Value Reference Range Comments POC-GLUCOSE METER (BEAKER) (test msdq=4853) 229 mg/dL 70-110 TESTED AT [address] [address] POCT-GLUCOSE [id number] 08:02:00* Test Item Value Reference Range Comments POC-GLUCOSE METER (BEAKER) (test slan=4822) 156 mg/dL 70-110 TESTED AT [address] [address] HEMOGLOBIN AND [id number] 07:31:00* Test Item Value Reference Range Comments HEMOGLOBIN (BEAKER) (test vspi=940) 8.0 GM/DL 13.7-17.5 HEMATOCRIT (BEAKER) (test oxht=346) 25.0 % 40.1-51.0 POCT-GLUCOSE [id number] 22:49:00* Test Item Value Reference Range Comments POC-GLUCOSE METER (BEAKER) (test ktsw=2502) 117 mg/dL 70-110 TESTED AT [address] [address] POCT-GLUCOSE [id number] 17:04:00* Test Item Value Reference Range Comments POC-GLUCOSE METER (BEAKER) (test ibeb=4493) 227 mg/dL 70-110 TESTED AT [address] [address] POCT-GLUCOSE [id number] 12:28:00* Test Item Value Reference Range Comments POC-GLUCOSE METER (BEAKER) (test ygmi=0616) 224 mg/dL 70-110 TESTED AT [address] [address] POCT-GLUCOSE [id number] 09:13:00* Test Item Value Reference Range Comments POC-GLUCOSE METER (BEAKER) (test xxqk=3251) 185 mg/dL 70-110 TESTED AT [address] [address] HEMOGLOBIN AND [id number] 05:46:00* Test Item Value Reference Range Comments HEMOGLOBIN (BEAKER) (test xjom=347) 6.8 GM/DL 13.7-17.5 HEMATOCRIT (BEAKER) (test pese=589) 21.5 % 40.1-51.0 POCT-GLUCOSE [id number] 21:16:00* Test Item Value Reference Range Comments POC-GLUCOSE METER (BEAKER) (test reti=7357) 196 mg/dL 70-110 TESTED AT [address] [address] POCT-GLUCOSE [id number] 16:56:00* Test Item Value Reference Range Comments POC-GLUCOSE METER (BEAKER) (test ympg=7019) 177 mg/dL 70-110 TESTED AT [address] [address] POCT-GLUCOSE [id number] 11:58:00* Test Item Value Reference Range Comments POC-GLUCOSE METER (BEAKER) (test fdnd=6219) 228 mg/dL 70-110 TESTED AT [address] [address] POCT-GLUCOSE [id number] 08:14:00* Test Item Value Reference Range Comments POC-GLUCOSE METER (BEAKER) (test jdrx=6378) 182 mg/dL 70-110 TESTED AT [facility] [address] [place] [address] CBC W/PLT COUNT & AUTO [id number] 06:20:00* Test Item Value Reference Range Comments WHITE BLOOD CELL COUNT (BEAKER) (test eldd=354) 10.8 K/ L 3.5-10.5 RED BLOOD CELL COUNT (BEAKER) (test naxc=946) 2.63 M/ L 4.63-6.08 HEMOGLOBIN (BEAKER) (test foqf=015) 7.1 GM/DL 13.7-17.5 HEMATOCRIT (BEAKER) (test trat=860) 21.7 % 40.1-51.0 MEAN CORPUSCULAR VOLUME (BEAKER) (test xowd=220) 82.5 fL 79.0-92.2 MEAN CORPUSCULAR HEMOGLOBIN (BEAKER) (test zhwz=299) 27.0 pg 25.7-32.2 MEAN CORPUSCULAR HEMOGLOBIN CONC (BEAKER) (test lzxh=535) 32.7 GM/DL 32.3-36.5 RED CELL DISTRIBUTION WIDTH (BEAKER) (test dqqq=988) 15.0 % 11.6-14.4 PLATELET COUNT (BEAKER) (test jvlf=787) 286 K/CU MM 150-450 MEAN PLATELET VOLUME (BEAKER) (test cnpk=109) 11.2 fL 9.4-12.4 NUCLEATED RED BLOOD CELLS (BEAKER) (test brzb=943) 0 /100 WBC 0-0 NEUTROPHILS RELATIVE PERCENT (BEAKER) (test ioix=709) 82 % LYMPHOCYTES RELATIVE PERCENT (BEAKER) (test dciz=679) 10 % MONOCYTES RELATIVE PERCENT (BEAKER) (test uniw=944) 5 % EOSINOPHILS RELATIVE PERCENT (BEAKER) (test undq=145) 1 % BASOPHILS RELATIVE PERCENT (BEAKER) (test yodg=739) 0 % NEUTROPHILS ABSOLUTE COUNT (BEAKER) (test afnp=826) 8.90 K/ L 1.78-5.38 LYMPHOCYTES ABSOLUTE COUNT (BEAKER) (test mldj=060) 1.13 K/ L 1.32-3.57 MONOCYTES ABSOLUTE COUNT (BEAKER) (test tprp=286) 0.56 K/ L 0.30-0.82 EOSINOPHILS ABSOLUTE COUNT (BEAKER) (test bhkm=261) 0.15 K/ L 0.04-0.54 BASOPHILS ABSOLUTE COUNT (BEAKER) (test zjdq=655) 0.02 K/ L 0.01-0.08 IMMATURE GRANULOCYTES-RELATIVE PERCENT (BEAKER) (test zstv=4997) 1 % 0-1 BASIC METABOLIC [id number] 05:46:00* Test Item Value Reference Range Comments SODIUM (BEAKER) (test pvbz=776) 134 meq/L 136-145 POTASSIUM (BEAKER) (test vmfa=185) 5.0 meq/L 3.5-5.1 CHLORIDE (BEAKER) (test pbja=104) 103 meq/L 98-107 CO2 (BEAKER) (test iukb=011) 20 meq/L 22-29 BLOOD UREA NITROGEN (BEAKER) (test rykg=468) 24 mg/dL 7-21 CREATININE (BEAKER) (test aubz=410) 1.17 mg/dL 0.57-1.25 GLUCOSE RANDOM (BEAKER) (test lknp=887) 157 mg/dL 70-105 CALCIUM (BEAKER) (test hnfc=582) 8.5 mg/dL 8.4-10.2 EGFR (BEAKER) (test iivo=8596) 64 mL/min/1.73 sq m ESTIMATED GFR IS NOT ACCURATE CREATININE CLEARANCE IN PREDICTING GLOMERULAR FILTRATION RATE. ESTIMATED GFR IS NOT APPLICABLE FOR DIALYSIS PATIENTS. POCT-GLUCOSE [id number] 21:02:00* Test Item Value Reference Range Comments POC-GLUCOSE METER (BEAKER) (test pmiv=5481) 221 mg/dL 70-110 TESTED AT [address] [address] POCT-GLUCOSE [id number] 17:14:00* Test Item Value Reference Range Comments POC-GLUCOSE METER (BEAKER) (test zxgr=6310) 176 mg/dL 70-110 TESTED AT [address] [address] POCT-GLUCOSE [id number] 12:38:00* Test Item Value Reference Range Comments POC-GLUCOSE METER (BEAKER) (test bdhr=3458) 101 mg/dL 70-110 TESTED AT [address] [address] POCT-GLUCOSE [id number] 08:13:00* Test Item Value Reference Range Comments POC-GLUCOSE METER (BEAKER) (test jfiq=2823) 74 mg/dL 70-110 TESTED AT [facility] [address] [facility] [address] BASIC METABOLIC [id number] 06:17:00* Test Item Value Reference Range Comments SODIUM (BEAKER) (test euwh=479) 130 meq/L 136-145 POTASSIUM (BEAKER) (test jkjo=866) 5.1 meq/L 3.5-5.1 CHLORIDE (BEAKER) (test izlh=407) 102 meq/L 98-107 CO2 (BEAKER) (test czpd=509) 19 meq/L 22-29 BLOOD UREA NITROGEN (BEAKER) (test scdz=814) 26 mg/dL 7-21 CREATININE (BEAKER) (test deha=513) 1.27 mg/dL 0.57-1.25 GLUCOSE RANDOM (BEAKER) (test iaus=529) 73 mg/dL 70-105 CALCIUM (BEAKER) (test kjbi=320) 7.8 mg/dL 8.4-10.2 EGFR (BEAKER) (test cmcn=5957) 58 mL/min/1.73 sq m ESTIMATED GFR IS NOT ACCURATE CREATININE CLEARANCE IN PREDICTING GLOMERULAR FILTRATION RATE. ESTIMATED GFR IS NOT APPLICABLE FOR DIALYSIS PATIENTS. CBC W/PLT COUNT & AUTO [id number] 04:10:00* Test Item Value Reference Range Comments WHITE BLOOD CELL COUNT (BEAKER) (test tnxv=180) 9.5 K/ L 3.5-10.5 RED BLOOD CELL COUNT (BEAKER) (test qlhh=194) 2.51 M/ L 4.63-6.08 HEMOGLOBIN (BEAKER) (test lutn=346) 6.7 GM/DL 13.7-17.5 HEMATOCRIT (BEAKER) (test fsjv=787) 21.2 % 40.1-51.0 MEAN CORPUSCULAR VOLUME (BEAKER) (test qeyk=611) 84.5 fL 79.0-92.2 MEAN CORPUSCULAR HEMOGLOBIN (BEAKER) (test xpuu=138) 26.7 pg 25.7-32.2 MEAN CORPUSCULAR HEMOGLOBIN CONC (BEAKER) (test tipu=771) 31.6 GM/DL 32.3-36.5 RED CELL DISTRIBUTION WIDTH (BEAKER) (test urga=262) 15.2 % 11.6-14.4 PLATELET COUNT (BEAKER) (test lksa=866) 231 K/CU MM 150-450 MEAN PLATELET VOLUME (BEAKER) (test dlmr=642) 10.5 fL 9.4-12.4 NUCLEATED RED BLOOD CELLS (BEAKER) (test fskf=235) 0 /100 WBC 0-0 NEUTROPHILS RELATIVE PERCENT (BEAKER) (test slhm=910) 76 % LYMPHOCYTES RELATIVE PERCENT (BEAKER) (test hvow=420) 15 % MONOCYTES RELATIVE PERCENT (BEAKER) (test excr=999) 7 % EOSINOPHILS RELATIVE PERCENT (BEAKER) (test chzr=447) 2 % BASOPHILS RELATIVE PERCENT (BEAKER) (test hain=891) 0 % NEUTROPHILS ABSOLUTE COUNT (BEAKER) (test odqn=303) 7.18 K/ L 1.78-5.38 LYMPHOCYTES ABSOLUTE COUNT (BEAKER) (test ydba=496) 1.39 K/ L 1.32-3.57 MONOCYTES ABSOLUTE COUNT (BEAKER) (test btax=564) 0.69 K/ L 0.30-0.82 EOSINOPHILS ABSOLUTE COUNT (BEAKER) (test epju=605) 0.19 K/ L 0.04-0.54 BASOPHILS ABSOLUTE COUNT (BEAKER) (test ouqq=998) 0.02 K/ L 0.01-0.08 IMMATURE GRANULOCYTES-RELATIVE PERCENT (BEAKER) (test lcyu=4386) 1 % 0-1 POCT-GLUCOSE [id number] 20:41:00* Test Item Value Reference Range Comments POC-GLUCOSE METER (BEAKER) (test jahf=9204) 93 mg/dL 70-110 TESTED AT [place] [id number] [facility] [address] POCT-GLUCOSE [id number] 19:08:00* Test Item Value Reference Range Comments POC-GLUCOSE METER (BEAKER) (test ldgk=7873) 94 mg/dL 70-110 TESTED AT [address] [address] POCT-GLUCOSE [id number] 17:49:00* Test Item Value Reference Range Comments POC-GLUCOSE METER (BEAKER) (test gxmp=2256) 50 mg/dL 70-110 TESTED AT [address] [address] POCT-GLUCOSE [id number] 13:05:00* Test Item Value Reference Range Comments POC-GLUCOSE METER (BEAKER) (test eaam=3649) 91 mg/dL 70-110 TESTED AT [address] [address] URINALYSIS W/ REFLEX URINE [id number] 12:36:00* Test Item Value Reference Range Comments COLOR (BEAKER) (test sxtx=736) Yellow CLARITY (BEAKER) (test usvh=626) Hazy SPECIFIC GRAVITY UA (BEAKER) (test fyiq=150) 1.012 1.001-1.035 PH UA (BEAKER) (test rina=622) 5.5 5.0-8.0 PROTEIN UA (BEAKER) (test nkxw=625) 50 mg/dL Negative GLUCOSE UA (BEAKER) (test zaeb=832) Negative Negative KETONES UA (BEAKER) (test wlmy=670) Negative Negative BILIRUBIN UA (BEAKER) (test qggd=533) Negative Negative BLOOD UA (BEAKER) (test lhbi=655) Trace Negative NITRITE UA (BEAKER) (test ooqb=282) Negative Negative LEUKOCYTE ESTERASE UA (BEAKER) (test jwii=166) Negative Negative UROBILINOGEN UA (BEAKER) (test dlhc=759) 0.2 mg/dL 0.2-1.0 RBC UA (BEAKER) (test vkqi=971) 6 /HPF WBC UA (BEAKER) (test hjyf=389) 17 /HPF BACTERIA (BEAKER) (test fffo=288) Rare HYALINE CASTS (BEAKER) (test wgle=052) 3 /LPF GRANULAR CASTS (BEAKER) (test pjzb=692) 11 /LPF MIXED CELL CASTS (BEAKER) (test dsah=1921) 8 /LPF SOURCE(BEAKER) (test wxuz=8894) POCT-GLUCOSE [id number] 08:35:00* Test Item Value Reference Range Comments POC-GLUCOSE METER (BEAKER) (test oyer=6464) 71 mg/dL 70-110 TESTED AT [address] [address] POCT-GLUCOSE [id number] 07:18:00* Test Item Value Reference Range Comments POC-GLUCOSE METER (BEAKER) (test qxwn=5303) 55 mg/dL 70-110 Notified LEE BARBOUR/TESTED AT [address] [address] BASIC METABOLIC [id number] 06:05:00* Test Item Value Reference Range Comments SODIUM (BEAKER) (test urld=441) 134 meq/L 136-145 POTASSIUM (BEAKER) (test tcdd=660) 4.4 meq/L 3.5-5.1 CHLORIDE (BEAKER) (test lfdh=855) 104 meq/L 98-107 CO2 (BEAKER) (test bddi=211) 21 meq/L 22-29 BLOOD UREA NITROGEN (BEAKER) (test oxwv=638) 26 mg/dL 7-21 CREATININE (BEAKER) (test ylub=453) 1.24 mg/dL 0.57-1.25 GLUCOSE RANDOM (BEAKER) (test pghb=290) 54 mg/dL 70-105 CALCIUM (BEAKER) (test ducv=552) 8.0 mg/dL 8.4-10.2 EGFR (BEAKER) (test zkjb=4251) 60 mL/min/1.73 sq m ESTIMATED GFR IS NOT ACCURATE CREATININE CLEARANCE IN PREDICTING GLOMERULAR FILTRATION RATE. ESTIMATED GFR IS NOT APPLICABLE FOR DIALYSIS PATIENTS. HEMOGLOBIN AND [id number] 05:36:00* Test Item Value Reference Range Comments HEMOGLOBIN (BEAKER) (test gltr=629) 7.8 GM/DL 13.7-17.5 HEMATOCRIT (BEAKER) (test wznk=375) 25.0 % 40.1-51.0 CBC W/PLT COUNT & AUTO [id number] 05:36:00* Test Item Value Reference Range Comments WHITE BLOOD CELL COUNT (BEAKER) (test aefz=303) 7.6 K/ L 3.5-10.5 RED BLOOD CELL COUNT (BEAKER) (test ntoh=969) 2.91 M/ L 4.63-6.08 HEMOGLOBIN (BEAKER) (test pkxe=412) 7.8 GM/DL 13.7-17.5 HEMATOCRIT (BEAKER) (test tmvv=455) 25.0 % 40.1-51.0 MEAN CORPUSCULAR VOLUME (BEAKER) (test ugkt=342) 85.9 fL 79.0-92.2 MEAN CORPUSCULAR HEMOGLOBIN (BEAKER) (test jvrn=043) 26.8 pg 25.7-32.2 MEAN CORPUSCULAR HEMOGLOBIN CONC (BEAKER) (test ujyw=478) 31.2 GM/DL 32.3-36.5 RED CELL DISTRIBUTION WIDTH (BEAKER) (test ilbv=671) 15.1 % 11.6-14.4 PLATELET COUNT (BEAKER) (test rglv=675) 264 K/CU MM 150-450 MEAN PLATELET VOLUME (BEAKER) (test vtlb=529) 10.6 fL 9.4-12.4 NUCLEATED RED BLOOD CELLS (BEAKER) (test xsck=235) 0 /100 WBC 0-0 NEUTROPHILS RELATIVE PERCENT (BEAKER) (test ndbn=397) 76 % LYMPHOCYTES RELATIVE PERCENT (BEAKER) (test hhxm=363) 14 % MONOCYTES RELATIVE PERCENT (BEAKER) (test qiaf=430) 8 % EOSINOPHILS RELATIVE PERCENT (BEAKER) (test cxyg=697) 2 % BASOPHILS RELATIVE PERCENT (BEAKER) (test ywno=522) 0 % NEUTROPHILS ABSOLUTE COUNT (BEAKER) (test maks=762) 5.72 K/ L 1.78-5.38 LYMPHOCYTES ABSOLUTE COUNT (BEAKER) (test seth=212) 1.08 K/ L 1.32-3.57 MONOCYTES ABSOLUTE COUNT (BEAKER) (test mfjh=461) 0.59 K/ L 0.30-0.82 EOSINOPHILS ABSOLUTE COUNT (BEAKER) (test wayr=437) 0.11 K/ L 0.04-0.54 BASOPHILS ABSOLUTE COUNT (BEAKER) (test oesg=210) 0.03 K/ L 0.01-0.08 IMMATURE GRANULOCYTES-RELATIVE PERCENT (BEAKER) (test evka=7283) 0 % 0-1 POCT-GLUCOSE [id number] 21:29:00* Test Item Value Reference Range Comments POC-GLUCOSE METER (BEAKER) (test wkkz=2470) 86 mg/dL 70-110 TESTED AT [address] [address] POCT-GLUCOSE [id number] 16:42:00* Test Item Value Reference Range Comments POC-GLUCOSE METER (BEAKER) (test qgrr=0213) 128 mg/dL 70-110 TESTED AT [address] [address] POCT-GLUCOSE [id number] 16:42:00* Test Item Value Reference Range Comments POC-GLUCOSE METER (BEAKER) (test ajum=0465) 67 mg/dL 70-110 TESTED AT [address] [address] POCT-GLUCOSE [id number] 15:18:00* Test Item Value Reference Range Comments POC-GLUCOSE METER (BEAKER) (test ghmp=9333) 66 mg/dL 70-110 TESTED AT [facility] [address] [facility] [address] POCT-GLUCOSE [id number] 12:05:00* Test Item Value Reference Range Comments POC-GLUCOSE METER (BEAKER) (test bbfv=2041) 76 mg/dL 70-110 TESTED AT [facility] [address] [facility] [address] TISSUE [id number] 14:09:00Surgical Pathology Report Case: [id number] Authorizing Provider: Satish García, Collected: 11/07/2016 Macarena BARBOUR Ordering Location: [facility] PERIOPERATIVE Received: 11/07/2016 1425 SERVICES Pathologist: Angel Brown MD Specimen: Metatarsal, Right, transmetatarsal BONE AND SOFT TISSUE, RIGHT METATARSAL, AMPUTATION: -GANGRENOUS NECROSIS WITH ULCERATION EXTENDING TO SOFT TISSUE MARGIN -BONE WITH OSTEONECROSIS -BONE MARGIN VIABLE [id number] of right footRight transmetatarsalReceived fresh labeled "metatarsal, right" is a right transmetatarsal amputation specimen measuring 10.5 cm in length and 10.5 cm from medial to lateral.All five digits are present.The 3rd, 4th and 5th digits are black and mummified with mummification and necrosis extending over a portion of the plantar aspect of the specimen.The nails are yellow-rodgers and thickened.The remainder of the specimen is covered by dark-rodgers, wrinkled, keratotic skin. The resection margin appears viable.Section code: A1, parallel soft tissue resection margin; A2, cross section of 4th digit for decalcification; A3, cross section of 5th digit for decalcification; A4, industrial relations representative sections of plantar aspect of specimen; A5, bone marrow from bone resection margin for decalcification. A6 additional bone and soft tissue section. DB/ewThe soft tissue sections demonstr ate marked acute and chronic inflammation with necrosis and overlying ulceration of the epidermis extending to the soft tissue margin. The bone shows marrow ne crosis with devitalized bone but the bone margin is viable.URINE CULTURE 2016-11-10 08:15:00* Test Item Value Reference Range Comments CULTURE (BEAKER) (test wdxn=7237) No growth GRAM STAIN RESULT (BEAKER) (test htsq=6450) No WBCs GRAM STAIN RESULT (BEAKER) (test fmux=77517) No organisms seen POCT-GLUCOSE [id number] 12:50:00* Test Item Value Reference Range Comments POC-GLUCOSE METER (BEAKER) (test ydvl=9614) 281 mg/dL 70-110 TESTED AT [address] [address] POCT-GLUCOSE [id number] 08:26:00* Test Item Value Reference Range Comments POC-GLUCOSE METER (BEAKER) (test apyh=0386) 145 mg/dL 70-110 TESTED AT [address] [address] BASIC METABOLIC [id number] 05:20:00* Test Item Value Reference Range Comments SODIUM (BEAKER) (test vxsn=421) 135 meq/L 136-145 POTASSIUM (BEAKER) (test heof=154) 4.0 meq/L 3.5-5.1 CHLORIDE (BEAKER) (test hibr=058) 104 meq/L 98-107 CO2 (BEAKER) (test xtwi=459) 21 meq/L 22-29 BLOOD UREA NITROGEN (BEAKER) (test wsbt=814) 13 mg/dL 7-21 CREATININE (BEAKER) (test gzfb=416) 1.10 mg/dL 0.57-1.25 GLUCOSE RANDOM (BEAKER) (test zbli=731) 138 mg/dL 70-105 CALCIUM (BEAKER) (test dddp=579) 8.4 mg/dL 8.4-10.2 EGFR (BEAKER) (test jdgv=3024) 69 mL/min/1.73 sq m ESTIMATED GFR IS NOT ACCURATE CREATININE CLEARANCE IN PREDICTING GLOMERULAR FILTRATION RATE. ESTIMATED GFR IS NOT APPLICABLE FOR DIALYSIS PATIENTS. POCT-GLUCOSE [id number] 22:04:00* Test Item Value Reference Range Comments POC-GLUCOSE METER (BEAKER) (test sshe=6839) 176 mg/dL 70-110 TESTED AT [address] [address] POCT-GLUCOSE [id number] 18:26:00* Test Item Value Reference Range Comments POC-GLUCOSE METER (BEAKER) (test enuy=7948) 218 mg/dL 70-110 TESTED AT [address] [address] POCT-GLUCOSE [id number] 11:47:00* Test Item Value Reference Range Comments POC-GLUCOSE METER (BEAKER) (test fjrc=4979) 218 mg/dL 70-110 TESTED AT [address] [address] POCT-GLUCOSE [id number] 08:22:00* Test Item Value Reference Range Comments POC-GLUCOSE METER (BEAKER) (test fijx=6750) 190 mg/dL 70-110 TESTED AT [address] [address] POCT-GLUCOSE [id number] 21:39:00* Test Item Value Reference Range Comments POC-GLUCOSE METER (BEAKER) (test jwvc=4823) 202 mg/dL 70-110 TESTED AT [address] [address] POCT-GLUCOSE [id number] 18:30:00* Test Item Value Reference Range Comments POC-GLUCOSE METER (BEAKER) (test ijuj=6211) 188 mg/dL 70-110 TESTED AT [address] [address] POCT-GLUCOSE [id number] 15:35:00* Test Item Value Reference Range Comments POC-GLUCOSE METER (BEAKER) (test jrje=4813) 189 mg/dL 70-110 TESTED AT [address] [address] POCT-GLUCOSE [id number] 08:42:00* Test Item Value Reference Range Comments POC-GLUCOSE METER (BEAKER) (test nrla=8433) 187 mg/dL 70-110 TESTED AT [address] [address] CBC W/PLT COUNT & AUTO [id number] 07:24:00* Test Item Value Reference Range Comments WHITE BLOOD CELL COUNT (BEAKER) (test aenz=075) 11.6 K/ L 3.5-10.5 RED BLOOD CELL COUNT (BEAKER) (test rlnj=156) 3.46 M/ L 4.63-6.08 HEMOGLOBIN (BEAKER) (test funx=197) 9.6 GM/DL 13.7-17.5 HEMATOCRIT (BEAKER) (test mdma=139) 29.5 % 40.1-51.0 MEAN CORPUSCULAR VOLUME (BEAKER) (test biby=465) 85.3 fL 79.0-92.2 MEAN CORPUSCULAR HEMOGLOBIN (BEAKER) (test arqd=310) 27.7 pg 25.7-32.2 MEAN CORPUSCULAR HEMOGLOBIN CONC (BEAKER) (test heos=777) 32.5 GM/DL 32.3-36.5 RED CELL DISTRIBUTION WIDTH (BEAKER) (test yejr=948) 14.6 % 11.6-14.4 PLATELET COUNT (BEAKER) (test vypj=381) 535 K/CU MM 150-450 MEAN PLATELET VOLUME (BEAKER) (test fzah=202) 10.3 fL 9.4-12.4 NUCLEATED RED BLOOD CELLS (BEAKER) (test nnop=942) 0 /100 WBC 0-0 NEUTROPHILS RELATIVE PERCENT (BEAKER) (test rrvi=263) 80 % LYMPHOCYTES RELATIVE PERCENT (BEAKER) (test cnqv=399) 10 % MONOCYTES RELATIVE PERCENT (BEAKER) (test lhwi=885) 6 % EOSINOPHILS RELATIVE PERCENT (BEAKER) (test okaw=104) 3 % BASOPHILS RELATIVE PERCENT (BEAKER) (test jnfh=130) 0 % NEUTROPHILS ABSOLUTE COUNT (BEAKER) (test ajab=601) 9.29 K/ L 1.78-5.38 LYMPHOCYTES ABSOLUTE COUNT (BEAKER) (test wwxd=707) 1.11 K/ L 1.32-3.57 MONOCYTES ABSOLUTE COUNT (BEAKER) (test ajsv=047) 0.69 K/ L 0.30-0.82 EOSINOPHILS ABSOLUTE COUNT (BEAKER) (test gobs=165) 0.35 K/ L 0.04-0.54 BASOPHILS ABSOLUTE COUNT (BEAKER) (test bjly=443) 0.03 K/ L 0.01-0.08 IMMATURE GRANULOCYTES-RELATIVE PERCENT (BEAKER) (test vmee=0275) 1 % 0-1 BASIC METABOLIC [id number] 06:29:00* Test Item Value Reference Range Comments SODIUM (BEAKER) (test iiha=393) 136 meq/L 136-145 POTASSIUM (BEAKER) (test mfgm=996) 3.3 meq/L 3.5-5.1 CHLORIDE (BEAKER) (test hner=306) 102 meq/L 98-107 CO2 (BEAKER) (test zkup=092) 23 meq/L 22-29 BLOOD UREA NITROGEN (BEAKER) (test ydvc=486) 16 mg/dL 7-21 CREATININE (BEAKER) (test extl=430) 1.25 mg/dL 0.57-1.25 GLUCOSE RANDOM (BEAKER) (test supv=656) 158 mg/dL 70-105 CALCIUM (BEAKER) (test ehnl=631) 8.2 mg/dL 8.4-10.2 EGFR (BEAKER) (test soum=5120) 59 mL/min/1.73 sq m ESTIMATED GFR IS NOT ACCURATE CREATININE CLEARANCE IN PREDICTING GLOMERULAR FILTRATION RATE. ESTIMATED GFR IS NOT APPLICABLE FOR DIALYSIS PATIENTS. PT/[id number] 06:18:00* Test Item Value Reference Range Comments PROTIME (BEAKER) (test yfez=007) 15.7 seconds 11.7-14.7 INR (BEAKER) (test uxkn=591) 1.3 <=5.9 PARTIAL THROMBOPLASTIN TIME (BEAKER) (test merr=146) 29.7 seconds 22.5-36.0 RECOMMENDED COUMADIN/WARFARIN INR THERAPY RANGESSTANDARD DOSE: 2.0 - 3.0 Inclu elder: PROPHYLAXIS for venous thrombosis, systemic embolization; TREATMENT for harshad ous thrombosis and/or pulmonary embolus.HIGH RISK: Target INR is 2.5-3.5 for pat ients with mechanical heart valves.BLOOD [id number] 06:00:00* Test Item Value Reference Range Comments CULTURE (BEAKER) (test lvhf=4857) No growth in 5 days BLOOD [id number] 06:00:00* Test Item Value Reference Range Comments CULTURE (BEAKER) (test bfrd=8053) No growth in 5 days POCT-GLUCOSE [id number] 20:56:00* Test Item Value Reference Range Comments POC-GLUCOSE METER (BEAKER) (test hmrv=6124) 280 mg/dL 70-110 TESTED AT [facility] [address] [facility] [address] POCT-GLUCOSE [id number] 17:42:00* Test Item Value Reference Range Comments POC-GLUCOSE METER (BEAKER) (test xhrx=0415) 257 mg/dL 70-110 TESTED AT [place] [id number] [facility] [address] POCT-GLUCOSE [id number] 12:43:00* Test Item Value Reference Range Comments POC-GLUCOSE METER (BEAKER) (test pyby=7727) 262 mg/dL 70-110 TESTED AT [facility] [address] [facility] [address] OCCULT BLOOD, [id number] 11:20:00* Test Item Value Reference Range Comments FECAL OCCULT BLOOD (BEAKER) (test xhih=701) Positive Negative CLOSTRIDIUM DIFFICILE TOXIN [id number] 09:38:00* Test Item Value Reference Range Comments CLOSTRIDIUM DIFFICILE TOXIN, PCR (BEAKER) (test avsp=9227) Not Detected Not Detected This qualitative real-time polymerase chain reaction assay detects the tcdB gene , encoded on the C.difficile pathogenicity locus (PaLoc). The product of tcdB, toxin B, is a cytotoxin essential for causing C.difficile-associated disease (CD AD) and is found in virtually all toxigenic C.difficile.This assay is performed for patients suspected of having either community-acquired or nosocomial CDAD. Accordingly, only symptomatic patients should be tested and formed stools will b e rejected unless ileus is present (i.e., specified when ordering). Patients ma y be colonized with toxigenic C.difficile strains not causing active disease; th erefore, clinical correlation is needed when deciding how to manage patients wit h a positive test result.The assay has not been validated as a test of cure as a mplifiable nucleic acid may persist after effective treatment; therefore, follow -up testing of a positive result is not recommended.BASIC METABOLIC PANEL 2016-11-06 08:11:00* Test Item Value Reference Range Comments SODIUM (BEAKER) (test hhao=428) 137 meq/L 136-145 POTASSIUM (BEAKER) (test hvxt=404) 3.3 meq/L 3.5-5.1 CHLORIDE (BEAKER) (test wtha=647) 100 meq/L 98-107 CO2 (BEAKER) (test uxuh=177) 24 meq/L 22-29 BLOOD UREA NITROGEN (BEAKER) (test rpah=173) 19 mg/dL 7-21 CREATININE (BEAKER) (test cyec=354) 1.46 mg/dL 0.57-1.25 GLUCOSE RANDOM (BEAKER) (test zqjs=780) 142 mg/dL 70-105 CALCIUM (BEAKER) (test hujh=504) 8.2 mg/dL 8.4-10.2 EGFR (BEAKER) (test lsza=3660) 50 mL/min/1.73 sq m ESTIMATED GFR IS NOT ACCURATE CREATININE CLEARANCE IN PREDICTING GLOMERULAR FILTRATION RATE. ESTIMATED GFR IS NOT APPLICABLE FOR DIALYSIS PATIENTS. POCT-GLUCOSE [id number] 07:58:00* Test Item Value Reference Range Comments POC-GLUCOSE METER (BEAKER) (test jpmy=1382) 177 mg/dL 70-110 TESTED AT [facility] [address] [facility] [address] CBC W/PLT COUNT & AUTO [id number] 05:40:00* Test Item Value Reference Range Comments WHITE BLOOD CELL COUNT (BEAKER) (test govd=365) 11.8 K/ L 3.5-10.5 RED BLOOD CELL COUNT (BEAKER) (test hyfa=603) 3.92 M/ L 4.63-6.08 HEMOGLOBIN (BEAKER) (test ojrz=249) 10.7 GM/DL 13.7-17.5 HEMATOCRIT (BEAKER) (test jmkz=276) 33.4 % 40.1-51.0 MEAN CORPUSCULAR VOLUME (BEAKER) (test gdyw=655) 85.2 fL 79.0-92.2 MEAN CORPUSCULAR HEMOGLOBIN (BEAKER) (test fuwa=413) 27.3 pg 25.7-32.2 MEAN CORPUSCULAR HEMOGLOBIN CONC (BEAKER) (test otlo=371) 32.0 GM/DL 32.3-36.5 RED CELL DISTRIBUTION WIDTH (BEAKER) (test zdsn=776) 14.7 % 11.6-14.4 PLATELET COUNT (BEAKER) (test resu=700) 547 K/CU MM 150-450 MEAN PLATELET VOLUME (BEAKER) (test oxbk=055) 10.5 fL 9.4-12.4 NUCLEATED RED BLOOD CELLS (BEAKER) (test giqj=190) 0 /100 WBC 0-0 NEUTROPHILS RELATIVE PERCENT (BEAKER) (test rcpn=488) 80 % LYMPHOCYTES RELATIVE PERCENT (BEAKER) (test hnef=014) 10 % MONOCYTES RELATIVE PERCENT (BEAKER) (test wgxg=794) 6 % EOSINOPHILS RELATIVE PERCENT (BEAKER) (test bcyg=899) 3 % BASOPHILS RELATIVE PERCENT (BEAKER) (test budl=158) 0 % NEUTROPHILS ABSOLUTE COUNT (BEAKER) (test irqo=301) 9.47 K/ L 1.78-5.38 LYMPHOCYTES ABSOLUTE COUNT (BEAKER) (test enli=834) 1.14 K/ L 1.32-3.57 MONOCYTES ABSOLUTE COUNT (BEAKER) (test cfzq=063) 0.69 K/ L 0.30-0.82 EOSINOPHILS ABSOLUTE COUNT (BEAKER) (test uvwm=987) 0.37 K/ L 0.04-0.54 BASOPHILS ABSOLUTE COUNT (BEAKER) (test apgf=060) 0.04 K/ L 0.01-0.08 IMMATURE GRANULOCYTES-RELATIVE PERCENT (BEAKER) (test xhvn=0071) 1 % 0-1 POCT-GLUCOSE [id number] 20:42:00* Test Item Value Reference Range Comments POC-GLUCOSE METER (BEAKER) (test fmcx=9329) 189 mg/dL 70-110 TESTED AT [facility] [address] [facility] [address] POCT-GLUCOSE [id number] 17:02:00* Test Item Value Reference Range Comments POC-GLUCOSE METER (BEAKER) (test hkvo=7262) 271 mg/dL 70-110 TESTED AT [place] [id number] [facility] [address] CBC W/PLT COUNT & AUTO [id number] 15:01:00* Test Item Value Reference Range Comments WHITE BLOOD CELL COUNT (BEAKER) (test hxru=950) 13.2 K/ L 3.5-10.5 RED BLOOD CELL COUNT (BEAKER) (test dekl=333) 3.63 M/ L 4.63-6.08 HEMOGLOBIN (BEAKER) (test cpyf=445) 10.1 GM/DL 13.7-17.5 HEMATOCRIT (BEAKER) (test twck=005) 30.8 % 40.1-51.0 MEAN CORPUSCULAR VOLUME (BEAKER) (test anbp=936) 84.8 fL 79.0-92.2 MEAN CORPUSCULAR HEMOGLOBIN (BEAKER) (test gazi=944) 27.8 pg 25.7-32.2 MEAN CORPUSCULAR HEMOGLOBIN CONC (BEAKER) (test jvng=027) 32.8 GM/DL 32.3-36.5 RED CELL DISTRIBUTION WIDTH (BEAKER) (test darg=093) 14.7 % 11.6-14.4 PLATELET COUNT (BEAKER) (test bwno=770) 471 K/CU MM 150-450 MEAN PLATELET VOLUME (BEAKER) (test qtmi=438) 10.0 fL 9.4-12.4 NUCLEATED RED BLOOD CELLS (BEAKER) (test cqqy=623) 0 /100 WBC 0-0 NEUTROPHILS RELATIVE PERCENT (BEAKER) (test fbyy=766) 86 % LYMPHOCYTES RELATIVE PERCENT (BEAKER) (test mpus=891) 6 % MONOCYTES RELATIVE PERCENT (BEAKER) (test panq=014) 5 % EOSINOPHILS RELATIVE PERCENT (BEAKER) (test tmpw=394) 2 % BASOPHILS RELATIVE PERCENT (BEAKER) (test llyl=698) 0 % NEUTROPHILS ABSOLUTE COUNT (BEAKER) (test kzui=514) 11.37 K/ L 1.78-5.38 LYMPHOCYTES ABSOLUTE COUNT (BEAKER) (test wolk=281) 0.77 K/ L 1.32-3.57 MONOCYTES ABSOLUTE COUNT (BEAKER) (test fdou=551) 0.66 K/ L 0.30-0.82 EOSINOPHILS ABSOLUTE COUNT (BEAKER) (test kfrn=832) 0.30 K/ L 0.04-0.54 BASOPHILS ABSOLUTE COUNT (BEAKER) (test cslf=921) 0.03 K/ L 0.01-0.08 IMMATURE GRANULOCYTES-RELATIVE PERCENT (BEAKER) (test myog=1092) 1 % 0-1 POCT-GLUCOSE [id number] 11:19:00* Test Item Value Reference Range Comments POC-GLUCOSE METER (BEAKER) (test utux=8479) 316 mg/dL 70-110 Notified LEE BARBOUR/TESTED AT [address] [address] PLATELET AGGREGATION: FUNCTION [id number] 09:21:00* Test Item Value Reference Range Comments WEAK ADP RESULT(BEAKER) (test pizj=0801) 0 % 60-91 PLATELET FUNCTION SCREEN INTERP (BEAKER) (test xbvz=7184) 0-39% indicates marked platelet dysfunction SELD-LTUNOVVEMFV-8338 (BEAKER) (test gxon=5366) Margaux Zuniga MD (electronic signature) PLATELET COUNT AGG (BEAKER) (test sjdg=3051) 487 K/CU MM 150-450 POCT-GLUCOSE [id number] 08:21:00* Test Item Value Reference Range Comments POC-GLUCOSE METER (BEAKER) (test iffv=4734) 180 mg/dL 70-110 TESTED AT [address] [address] BASIC METABOLIC [id number] 05:23:00* Test Item Value Reference Range Comments SODIUM (BEAKER) (test egsx=251) 135 meq/L 136-145 POTASSIUM (BEAKER) (test vogn=977) 3.5 meq/L 3.5-5.1 CHLORIDE (BEAKER) (test izon=246) 100 meq/L 98-107 CO2 (BEAKER) (test jpwt=933) 24 meq/L 22-29 BLOOD UREA NITROGEN (BEAKER) (test jmbd=774) 22 mg/dL 7-21 CREATININE (BEAKER) (test xydu=581) 1.59 mg/dL 0.57-1.25 GLUCOSE RANDOM (BEAKER) (test ueaz=587) 156 mg/dL 70-105 CALCIUM (BEAKER) (test akqx=958) 8.0 mg/dL 8.4-10.2 EGFR (BEAKER) (test fucq=1048) 45 mL/min/1.73 sq m ESTIMATED GFR IS NOT ACCURATE CREATININE CLEARANCE IN PREDICTING GLOMERULAR FILTRATION RATE. ESTIMATED GFR IS NOT APPLICABLE FOR DIALYSIS PATIENTS. POCT-GLUCOSE [id number] 20:54:00* Test Item Value Reference Range Comments POC-GLUCOSE METER (BEAKER) (test zgfd=2451) 226 mg/dL 70-110 TESTED AT [address] [address] POCT-GLUCOSE [id number] 17:00:00* Test Item Value Reference Range Comments POC-GLUCOSE METER (BEAKER) (test zlej=0866) 269 mg/dL 70-110 TESTED AT [address] [address] VANCOMYCIN LEVEL, [id number] 14:53:00* Test Item Value Reference Range Comments VANCOMYCIN TROUGH (BEAKER) (test qtvj=697) 26.6 ug/mL 10.0-20.0 Recheck lvl ordered as change in Scr and last check couple of days ago per appro gretel [facility] policyBASIC METABOLIC [id number] 14:52:00* Test Item Value Reference Range Comments SODIUM (BEAKER) (test vain=026) 133 meq/L 136-145 POTASSIUM (BEAKER) (test xdik=697) 4.1 meq/L 3.5-5.1 CHLORIDE (BEAKER) (test duof=157) 98 meq/L 98-107 CO2 (BEAKER) (test sqnn=275) 25 meq/L 22-29 BLOOD UREA NITROGEN (BEAKER) (test qzla=965) 21 mg/dL 7-21 CREATININE (BEAKER) (test fcoz=680) 1.57 mg/dL 0.57-1.25 GLUCOSE RANDOM (BEAKER) (test waov=053) 276 mg/dL 70-105 CALCIUM (BEAKER) (test jbqf=539) 8.3 mg/dL 8.4-10.2 EGFR (BEAKER) (test sxyv=3800) 46 mL/min/1.73 sq m ESTIMATED GFR IS NOT ACCURATE CREATININE CLEARANCE IN PREDICTING GLOMERULAR FILTRATION RATE. ESTIMATED GFR IS NOT APPLICABLE FOR DIALYSIS PATIENTS. POCT-GLUCOSE [id number] 12:22:00* Test Item Value Reference Range Comments POC-GLUCOSE METER (BEAKER) (test bxsz=1310) 270 mg/dL 70-110 TESTED AT [place] [id number] POCT-GLUCOSE [id number] 08:29:00* Test Item Value Reference Range Comments POC-GLUCOSE METER (BEAKER) (test odls=0576) 226 mg/dL 70-110 TESTED AT [address] [address] B-TYPE NATRIURETIC FACTOR (BNP)2016-11-04 07:13:00* Test Item Value Reference Range Comments B-TYPE NATRIURETIC PEPTIDE (BEAKER) (test bsyo=229) 2240 pg/mL 0-100 POCT-GLUCOSE [id number] 06:02:00* Test Item Value Reference Range Comments POC-GLUCOSE METER (BEAKER) (test ujku=0835) 247 mg/dL 70-110 TESTED AT [address] [address] B-TYPE NATRIURETIC FACTOR (BNP)2016-11-04 00:12:00* Test Item Value Reference Range Comments B-TYPE NATRIURETIC PEPTIDE (BEAKER) (test ifda=890) 2310 pg/mL 0-100 HEMOGLOBIN AND [id number] 23:47:00* Test Item Value Reference Range Comments HEMOGLOBIN (BEAKER) (test bssq=538) 10.9 GM/DL 13.7-17.5 HEMATOCRIT (BEAKER) (test bidl=538) 33.7 % 40.1-51.0 POCT-GLUCOSE [id number] 21:25:00* Test Item Value Reference Range Comments POC-GLUCOSE METER (BEAKER) (test sfhe=9426) 300 mg/dL 70-110 TESTED AT [address] [address] POCT-GLUCOSE [id number] 18:02:00* Test Item Value Reference Range Comments POC-GLUCOSE METER (BEAKER) (test mtlc=0453) 367 mg/dL 70-110 TESTED AT [address] [address] [id number] 16:52:00* Test Item Value Reference Range Comments ACTIVATED CLOTTING TIME (BEAKER) (test cfvo=463) 147 sec TESTED AT [address] [address] [id number] 15:54:00* Test Item Value Reference Range Comments ACTIVATED CLOTTING TIME (BEAKER) (test ryvj=764) 164 sec TESTED AT [address] [address] CREATINE KINASE (CK), TOTAL AND [id number] 12:47:00* Test Item Value Reference Range Comments CREATINE KINASE TOTAL (BEAKER) (test ckxx=389) 244 U/L 29-200 CREATINE KINASE-MB (BEAKER) (test ifsa=993) 4.1 ng/mL 0.0-6.6 CREATINE KINASE-MB INDEX (BEAKER) (test riph=766) 1.7 % Effective 02/24/2014: CK-MB Reference Range ChangeNew: 0.0-6.6 Previous: 0.0- 4.9CK-MB Reference Range:<6.7 Normal6.7-10.0 Borderline>10.0 Abnormal HEMOGLOBIN AND [id number] 12:26:00* Test Item Value Reference Range Comments HEMOGLOBIN (BEAKER) (test xoxl=581) 7.9 GM/DL 13.7-17.5 HEMATOCRIT (BEAKER) (test kbsw=280) 25.4 % 40.1-51.0 TROPONIN [id number] 12:18:00* Test Item Value Reference Range Comments TROPONIN I (BEAKER) (test cptd=136) 0.05 ng/mL 0.00-0.03 Effective 02/24/2014: Reference Range ChangeNew: 0.00-0.03 Previous 0.00-0.15T roponin I (TnI) levels must be interpreted in the context of the presenting symp toms and the clinical findings. Elevated TnI levels indicate myocardial damage, but are not specific for ischemic heart disease. Elevated TnI levels are seen in patients with other cardiac conditions (including myocarditis and congestive he art failure), and slight TnI elevations occur in patients with other conditions, including sepsis, renal failure, acidosis, acute neurological disease, and pers istent tachyarrhythmia.URINE [id number] 08:24:00* Test Item Value Reference Range Comments CULTURE (BEAKER) (test tagz=4508) No growth GRAM STAIN RESULT (BEAKER) (test gupf=1200) <1+ WBCs GRAM STAIN RESULT (BEAKER) (test nnwg=41644) No organisms seen POCT-GLUCOSE [id number] 08:21:00* Test Item Value Reference Range Comments POC-GLUCOSE METER (BEAKER) (test kcls=4568) 240 mg/dL 70-110 TESTED AT [facility] [address] [facility] [address] BASIC METABOLIC [id number] 05:26:00* Test Item Value Reference Range Comments SODIUM (BEAKER) (test opqm=077) 132 meq/L 136-145 POTASSIUM (BEAKER) (test vdff=200) 3.5 meq/L 3.5-5.1 CHLORIDE (BEAKER) (test fqea=626) 98 meq/L 98-107 CO2 (BEAKER) (test mgak=799) 24 meq/L 22-29 BLOOD UREA NITROGEN (BEAKER) (test huay=333) 21 mg/dL 7-21 CREATININE (BEAKER) (test nccx=437) 1.30 mg/dL 0.57-1.25 GLUCOSE RANDOM (BEAKER) (test zrhz=270) 215 mg/dL 70-105 CALCIUM (BEAKER) (test jsek=577) 8.1 mg/dL 8.4-10.2 EGFR (BEAKER) (test aibm=5546) 57 mL/min/1.73 sq m ESTIMATED GFR IS NOT ACCURATE CREATININE CLEARANCE IN PREDICTING GLOMERULAR FILTRATION RATE. ESTIMATED GFR IS NOT APPLICABLE FOR DIALYSIS PATIENTS. [id number] 05:10:00* Test Item Value Reference Range Comments PROTIME (BEAKER) (test anpc=825) 16.0 seconds 11.7-14.7 INR (BEAKER) (test ftlw=323) 1.3 <=5.9 PARTIAL THROMBOPLASTIN TIME (BEAKER) (test isje=803) 41.6 seconds 22.5-36.0 RECOMMENDED COUMADIN/WARFARIN INR THERAPY RANGESSTANDARD DOSE: 2.0 - 3.0 Inclu elder: PROPHYLAXIS for venous thrombosis, systemic embolization; TREATMENT for harshad ous thrombosis and/or pulmonary embolus.HIGH RISK: Target INR is 2.5-3.5 for pat ients with mechanical heart valves.CBC (HEMOGRAM ONLY)2016-11-03 05:09:00* Test Item Value Reference Range Comments WHITE BLOOD CELL COUNT (BEAKER) (test qtep=485) 15.1 K/ L 3.5-10.5 RED BLOOD CELL COUNT (BEAKER) (test xowa=523) 2.96 M/ L 4.63-6.08 HEMOGLOBIN (BEAKER) (test xpfr=349) 8.1 GM/DL 13.7-17.5 HEMATOCRIT (BEAKER) (test czri=354) 25.3 % 40.1-51.0 MEAN CORPUSCULAR VOLUME (BEAKER) (test fupm=268) 85.5 fL 79.0-92.2 MEAN CORPUSCULAR HEMOGLOBIN (BEAKER) (test xqrq=263) 27.4 pg 25.7-32.2 MEAN CORPUSCULAR HEMOGLOBIN CONC (BEAKER) (test qant=688) 32.0 GM/DL 32.3-36.5 RED CELL DISTRIBUTION WIDTH (BEAKER) (test woev=828) 14.9 % 11.6-14.4 PLATELET COUNT (BEAKER) (test blhk=869) 440 K/CU MM 150-450 MEAN PLATELET VOLUME (BEAKER) (test lamf=154) 10.2 fL 9.4-12.4 NUCLEATED RED BLOOD CELLS (BEAKER) (test qtgq=586) 0 /100 WBC 0-0 POCT-GLUCOSE [id number] 21:22:00* Test Item Value Reference Range Comments POC-GLUCOSE METER (BEAKER) (test kdnq=2971) 262 mg/dL 70-110 TESTED AT [address] [address] POCT-GLUCOSE [id number] 16:58:00* Test Item Value Reference Range Comments POC-GLUCOSE METER (BEAKER) (test xwtu=3329) 248 mg/dL 70-110 TESTED AT [address] [address] POCT-GLUCOSE [id number] 13:11:00* Test Item Value Reference Range Comments POC-GLUCOSE METER (BEAKER) (test ymqs=4403) 224 mg/dL 70-110 TESTED AT [address] [address] POCT-GLUCOSE [id number] 08:11:00* Test Item Value Reference Range Comments POC-GLUCOSE METER (BEAKER) (test lkqk=4110) 181 mg/dL 70-110 TESTED AT [address] [address] BLOOD [id number] 06:00:00* Test Item Value Reference Range Comments CULTURE (BEAKER) (test sdyz=9595) No growth in 5 days BLOOD [id number] 06:00:00* Test Item Value Reference Range Comments CULTURE (BEAKER) (test vocz=7251) No growth in 5 days POCT-GLUCOSE [id number] 22:16:00* Test Item Value Reference Range Comments POC-GLUCOSE METER (BEAKER) (test xnfy=6892) 197 mg/dL 70-110 TESTED AT [address] [address] POCT-GLUCOSE [id number] 16:14:00* Test Item Value Reference Range Comments POC-GLUCOSE METER (BEAKER) (test ikps=4935) 263 mg/dL 70-110 TESTED AT [address] [address] CREATINE KINASE (CK)2016-11-01 13:19:00* Test Item Value Reference Range Comments CREATINE KINASE TOTAL (BEAKER) (test pdde=111) 90 U/L 29-200 POCT-GLUCOSE [id number] 11:20:00* Test Item Value Reference Range Comments POC-GLUCOSE METER (BEAKER) (test beom=8961) 231 mg/dL 70-110 TESTED AT [place] [id number] BLOOD [id number] 11:00:00* Test Item Value Reference Range Comments CULTURE (BEAKER) (test nohe=4906) No growth in 5 days BLOOD [id number] 11:00:00* Test Item Value Reference Range Comments CULTURE (BEAKER) (test qxdn=1428) No growth in 5 days POCT-GLUCOSE [id number] 08:02:00* Test Item Value Reference Range Comments POC-GLUCOSE METER (BEAKER) (test vsas=5138) 191 mg/dL 70-110 TESTED AT [facility] [address] [facility] [address] [id number] 05:30:00* Test Item Value Reference Range Comments MAGNESIUM (BEAKER) (test jmef=286) 1.7 mg/dL 1.6-2.6 BASIC METABOLIC [id number] 05:30:00* Test Item Value Reference Range Comments SODIUM (BEAKER) (test vrlw=938) 132 meq/L 136-145 POTASSIUM (BEAKER) (test rspj=979) 3.7 meq/L 3.5-5.1 CHLORIDE (BEAKER) (test cdxj=249) 98 meq/L 98-107 CO2 (BEAKER) (test rawu=418) 20 meq/L 22-29 BLOOD UREA NITROGEN (BEAKER) (test seui=535) 21 mg/dL 7-21 CREATININE (BEAKER) (test smqu=601) 1.12 mg/dL 0.57-1.25 GLUCOSE RANDOM (BEAKER) (test mwwa=977) 179 mg/dL 70-105 CALCIUM (BEAKER) (test cbtd=137) 8.2 mg/dL 8.4-10.2 EGFR (BEAKER) (test jdrx=7733) 67 mL/min/1.73 sq m ESTIMATED GFR IS NOT ACCURATE CREATININE CLEARANCE IN PREDICTING GLOMERULAR FILTRATION RATE. ESTIMATED GFR IS NOT APPLICABLE FOR DIALYSIS PATIENTS. POCT-GLUCOSE [id number] 21:21:00* Test Item Value Reference Range Comments POC-GLUCOSE METER (BEAKER) (test wtjn=0519) 193 mg/dL 70-110 TESTED AT [facility] [address] [facility] [address] POCT-GLUCOSE [id number] 17:29:00* Test Item Value Reference Range Comments POC-GLUCOSE METER (BEAKER) (test hmia=8466) 261 mg/dL 70-110 TESTED AT [facility] [address] [facility] [address] POCT-GLUCOSE [id number] 13:01:00* Test Item Value Reference Range Comments POC-GLUCOSE METER (BEAKER) (test bdoz=8573) 166 mg/dL 70-110 TESTED AT [facility] [address] [facility] [address] POCT-GLUCOSE [id number] 07:41:00* Test Item Value Reference Range Comments POC-GLUCOSE METER (BEAKER) (test jujs=3321) 152 mg/dL 70-110 TESTED AT [facility] [address] [facility] [address] [id number] 05:35:00* Test Item Value Reference Range Comments PARTIAL THROMBOPLASTIN TIME (BEAKER) (test gcyy=530) 110.5 seconds 22.5-36.0 BASIC METABOLIC [id number] 05:32:00* Test Item Value Reference Range Comments SODIUM (BEAKER) (test koug=520) 133 meq/L 136-145 POTASSIUM (BEAKER) (test cdeg=175) 3.3 meq/L 3.5-5.1 CHLORIDE (BEAKER) (test stok=628) 96 meq/L 98-107 CO2 (BEAKER) (test ozch=263) 25 meq/L 22-29 BLOOD UREA NITROGEN (BEAKER) (test xdxi=078) 18 mg/dL 7-21 CREATININE (BEAKER) (test aicb=236) 1.18 mg/dL 0.57-1.25 GLUCOSE RANDOM (BEAKER) (test lrhb=237) 152 mg/dL 70-105 CALCIUM (BEAKER) (test jkvo=841) 8.5 mg/dL 8.4-10.2 EGFR (BEAKER) (test bpbz=4868) 63 mL/min/1.73 sq m ESTIMATED GFR IS NOT ACCURATE CREATININE CLEARANCE IN PREDICTING GLOMERULAR FILTRATION RATE. ESTIMATED GFR IS NOT APPLICABLE FOR DIALYSIS PATIENTS. B-TYPE NATRIURETIC FACTOR (BNP)2016-10-31 05:29:00* Test Item Value Reference Range Comments B-TYPE NATRIURETIC PEPTIDE (BEAKER) (test kvjp=708) 566 pg/mL 0-100 BLOOD [id number] 00:00:00* Test Item Value Reference Range Comments CULTURE (BEAKER) (test pqdr=2044) No growth in 5 days BLOOD [id number] 00:00:00* Test Item Value Reference Range Comments CULTURE (BEAKER) (test eiis=8366) No growth in 5 days POCT-GLUCOSE [id number] 21:20:00* Test Item Value Reference Range Comments POC-GLUCOSE METER (BEAKER) (test dqko=0809) 206 mg/dL 70-110 TESTED AT [facility] [address] [facility] [address] [id number] 21:05:00* Test Item Value Reference Range Comments PARTIAL THROMBOPLASTIN TIME (BEAKER) (test vgbx=549) 41.0 seconds 22.5-36.0 6 hours after starting heparin infusion and [facility] & AUTO [id number] 20:32:00* Test Item Value Reference Range Comments WHITE BLOOD CELL COUNT (BEAKER) (test velo=873) 14.6 K/ L 3.5-10.5 RED BLOOD CELL COUNT (BEAKER) (test xwjb=210) 3.67 M/ L 4.63-6.08 HEMOGLOBIN (BEAKER) (test tahb=508) 10.1 GM/DL 13.7-17.5 HEMATOCRIT (BEAKER) (test ikup=041) 30.9 % 40.1-51.0 MEAN CORPUSCULAR VOLUME (BEAKER) (test kkeu=184) 84.2 fL 79.0-92.2 MEAN CORPUSCULAR HEMOGLOBIN (BEAKER) (test drbs=746) 27.5 pg 25.7-32.2 MEAN CORPUSCULAR HEMOGLOBIN CONC (BEAKER) (test sbqu=830) 32.7 GM/DL 32.3-36.5 RED CELL DISTRIBUTION WIDTH (BEAKER) (test yeyd=519) 14.6 % 11.6-14.4 PLATELET COUNT (BEAKER) (test ojdp=342) 471 K/CU MM 150-450 MEAN PLATELET VOLUME (BEAKER) (test bzlm=821) 9.9 fL 9.4-12.4 NUCLEATED RED BLOOD CELLS (BEAKER) (test tkrt=089) 0 /100 WBC 0-0 NEUTROPHILS RELATIVE PERCENT (BEAKER) (test fxyx=790) 85 % LYMPHOCYTES RELATIVE PERCENT (BEAKER) (test eial=130) 7 % MONOCYTES RELATIVE PERCENT (BEAKER) (test nitt=846) 6 % EOSINOPHILS RELATIVE PERCENT (BEAKER) (test cork=297) 1 % BASOPHILS RELATIVE PERCENT (BEAKER) (test itzc=919) 0 % NEUTROPHILS ABSOLUTE COUNT (BEAKER) (test agbe=773) 12.44 K/ L 1.78-5.38 LYMPHOCYTES ABSOLUTE COUNT (BEAKER) (test wvuc=306) 1.04 K/ L 1.32-3.57 MONOCYTES ABSOLUTE COUNT (BEAKER) (test jfyf=109) 0.82 K/ L 0.30-0.82 EOSINOPHILS ABSOLUTE COUNT (BEAKER) (test rewu=980) 0.19 K/ L 0.04-0.54 BASOPHILS ABSOLUTE COUNT (BEAKER) (test wnta=426) 0.03 K/ L 0.01-0.08 IMMATURE GRANULOCYTES-RELATIVE PERCENT (BEAKER) (test cbmj=9369) 1 % 0-1 POCT-GLUCOSE [id number] 17:21:00* Test Item Value Reference Range Comments POC-GLUCOSE METER (BEAKER) (test uqqc=4138) 199 mg/dL 70-110 TESTED AT [address] [address] VANCOMYCIN LEVEL, [id number] 14:55:00* Test Item Value Reference Range Comments VANCOMYCIN TROUGH ([facility]) (test bvds=864) 16.3 ug/mL 10.0-20.0 Draw before vanc dosePOCT-GLUCOSE [id number] 14:49:00* Test Item Value Reference Range Comments POC-GLUCOSE METER (AKER) (test opbd=7610) 154 mg/dL 70-110 TESTED AT [address] [address] POCT-GLUCOSE [id number] 10:38:00* Test Item Value Reference Range Comments POC-GLUCOSE METER (BEAKER) (test gbah=4003) 173 mg/dL 70-110 TESTED AT [address] [address] POCT-GLUCOSE [id number] 07:48:00* Test Item Value Reference Range Comments POC-GLUCOSE METER (BEAKER) (test hfrm=8335) 104 mg/dL 70-110 TESTED AT [address] [address] URINE [id number] 07:46:00* Test Item Value Reference Range Comments CULTURE (AKER) (test lyuv=7045) No growth [id number] 04:32:00* Test Item Value Reference Range Comments PHOSPHORUS (BEAKER) (test fhix=028) 3.7 mg/dL 2.3-4.7 [id number] 04:32:00* Test Item Value Reference Range Comments MAGNESIUM (BEAKER) (test yjpv=175) 1.3 mg/dL 1.6-2.6 BASIC METABOLIC [id number] 04:32:00* Test Item Value Reference Range Comments SODIUM (BEAKER) (test nnsc=032) 132 meq/L 136-145 POTASSIUM (BEAKER) (test gfkf=115) 3.8 meq/L 3.5-5.1 CHLORIDE (BEAKER) (test qukm=944) 94 meq/L 98-107 CO2 (BEAKER) (test oxvc=805) 26 meq/L 22-29 BLOOD UREA NITROGEN (BEAKER) (test ymnr=527) 17 mg/dL 7-21 CREATININE (BEAKER) (test rwsb=229) 1.16 mg/dL 0.57-1.25 GLUCOSE RANDOM (BEAKER) (test ptmm=666) 108 mg/dL 70-105 CALCIUM (BEAKER) (test jphd=095) 8.4 mg/dL 8.4-10.2 EGFR (BEAKER) (test asrg=4632) 65 mL/min/1.73 sq m ESTIMATED GFR IS NOT ACCURATE CREATININE CLEARANCE IN PREDICTING GLOMERULAR FILTRATION RATE. ESTIMATED GFR IS NOT APPLICABLE FOR DIALYSIS PATIENTS. CBC W/PLT COUNT & AUTO [id number] 04:24:00* Test Item Value Reference Range Comments WHITE BLOOD CELL COUNT (BEAKER) (test jxph=128) 14.7 K/ L 4.0-10.0 RED BLOOD CELL COUNT (BEAKER) (test yydk=441) 3.66 M/ L 4.20-5.80 HEMOGLOBIN (BEAKER) (test mrbn=544) 10.5 GM/DL 13.0-16.8 HEMATOCRIT (BEAKER) (test gihs=794) 32.4 % 40.0-50.0 MEAN CORPUSCULAR VOLUME (BEAKER) (test dgbr=426) 88.4 fL 82.0-98.0 MEAN CORPUSCULAR HEMOGLOBIN (BEAKER) (test ezzg=626) 28.6 pg 27.0-33.0 MEAN CORPUSCULAR HEMOGLOBIN CONC (BEAKER) (test kdnj=960) 32.4 GM/DL 32.0-36.0 RED CELL DISTRIBUTION WIDTH (BEAKER) (test tbfx=717) 15.4 % 10.3-14.2 PLATELET COUNT (BEAKER) (test iule=161) 417 K/CU MM 150-430 MEAN PLATELET VOLUME (BEAKER) (test jstq=283) 7.2 fL 6.5-10.5 NUCLEATED RED BLOOD CELLS (BEAKER) (test zngy=471) 0 /100 WBC 0-0 NEUTROPHILS RELATIVE PERCENT (BEAKER) (test hcnx=554) 81 % LYMPHOCYTES RELATIVE PERCENT (BEAKER) (test ttwl=098) 11 % MONOCYTES RELATIVE PERCENT (BEAKER) (test inns=086) 6 % EOSINOPHILS RELATIVE PERCENT (BEAKER) (test kean=978) 3 % BASOPHILS RELATIVE PERCENT (BEAKER) (test bzjm=860) 0 % NEUTROPHILS ABSOLUTE COUNT (BEAKER) (test gyql=253) 11.90 K/ L 1.80-8.00 LYMPHOCYTES ABSOLUTE COUNT (BEAKER) (test uhxe=218) 1.55 K/ L 1.48-4.50 MONOCYTES ABSOLUTE COUNT (BEAKER) (test iqlm=025) 0.90 K/ L 0.00-1.30 EOSINOPHILS ABSOLUTE COUNT (BEAKER) (test owxz=661) 0.40 K/ L 0.00-0.50 BASOPHILS ABSOLUTE COUNT (BEAKER) (test ojmi=007) 0.03 K/ L 0.00-0.20 0.00POCT-GLUCOSE [id number] 21:32:00* Test Item Value Reference Range Comments POC-GLUCOSE METER (BEAKER) (test ieuq=7143) 148 mg/dL 70-110 TESTED AT [address] [address] POCT-GLUCOSE [id number] 17:05:00* Test Item Value Reference Range Comments POC-GLUCOSE METER (BEAKER) (test vfhq=9638) 136 mg/dL 70-110 TESTED AT [address] [address] POCT-GLUCOSE [id number] 12:50:00* Test Item Value Reference Range Comments POC-GLUCOSE METER (BEAKER) (test bixi=2096) 180 mg/dL 70-110 TESTED AT [address] [address] POCT-GLUCOSE [id number] 07:26:00* Test Item Value Reference Range Comments POC-GLUCOSE METER (BEAKER) (test xacj=8917) 141 mg/dL 70-110 TESTED AT [address] [address] POCT-GLUCOSE [id number] 21:49:00* Test Item Value Reference Range Comments POC-GLUCOSE METER (BEAKER) (test katp=2714) 144 mg/dL 70-110 TESTED AT [address] [address] POCT-GLUCOSE [id number] 13:17:00* Test Item Value Reference Range Comments POC-GLUCOSE METER (BEAKER) (test fbyu=3319) 148 mg/dL 70-110 TESTED AT [address] [address] POCT-GLUCOSE [id number] 09:27:00* Test Item Value Reference Range Comments POC-GLUCOSE METER (BEAKER) (test mokj=7471) 178 mg/dL 70-110 TESTED AT [address] [address] URINALYSIS W/ [id number] 05:47:00* Test Item Value Reference Range Comments COLOR (BEAKER) (test sxhg=819) Yellow CLARITY (BEAKER) (test ucmr=700) Clear SPECIFIC GRAVITY UA (BEAKER) (test zlnf=088) 1.010 1.001-1.035 PH UA (BEAKER) (test hzin=861) 5.5 5.0-8.0 PROTEIN UA (BEAKER) (test lzft=007) 50 mg/dL Negative GLUCOSE UA (BEAKER) (test pbbb=488) Negative Negative KETONES UA (BEAKER) (test ckla=255) Trace Negative BILIRUBIN UA (BEAKER) (test isck=752) Negative Negative BLOOD UA (BEAKER) (test pbyg=453) Small Negative NITRITE UA (BEAKER) (test wfcb=101) Negative Negative LEUKOCYTE ESTERASE UA (BEAKER) (test upnb=601) Negative Negative UROBILINOGEN UA (BEAKER) (test emjm=319) 0.2 mg/dL 0.2-1.0 RBC UA (BEAKER) (test tahr=537) 3 /HPF WBC UA (BEAKER) (test kftp=280) 2 /HPF BACTERIA (BEAKER) (test pupu=374) Occasional MUCUS (BEAKER) (test yzxl=0988) Occasional GRANULAR CASTS (BEAKER) (test rddn=542) 3 /LPF AMORPHOUS CRYSTALS (BEAKER) (test vret=1229) Occasional SOURCE(BEAKER) (test ekrk=4014) Urine, [place] BASIC METABOLIC [id number] 05:30:00* Test Item Value Reference Range Comments SODIUM (BEAKER) (test spew=093) 131 meq/L 136-145 POTASSIUM (BEAKER) (test tpms=220) 4.2 meq/L 3.5-5.1 CHLORIDE (BEAKER) (test xmtr=701) 99 meq/L 98-107 CO2 (BEAKER) (test vcnf=347) 22 meq/L 22-29 BLOOD UREA NITROGEN (BEAKER) (test ykip=510) 13 mg/dL 7-21 CREATININE (BEAKER) (test ylok=874) 0.92 mg/dL 0.57-1.25 GLUCOSE RANDOM (BEAKER) (test zgjw=798) 155 mg/dL 70-105 CALCIUM (BEAKER) (test votn=508) 8.2 mg/dL 8.4-10.2 EGFR (BEAKER) (test jkez=9203) 84 mL/min/1.73 sq m ESTIMATED GFR IS NOT ACCURATE CREATININE CLEARANCE IN PREDICTING GLOMERULAR FILTRATION RATE. ESTIMATED GFR IS NOT APPLICABLE FOR DIALYSIS PATIENTS. CBC W/PLT COUNT & AUTO [id number] 05:22:00* Test Item Value Reference Range Comments WHITE BLOOD CELL COUNT (BEAKER) (test zfaa=505) 11.8 K/ L 4.0-10.0 RED BLOOD CELL COUNT (BEAKER) (test ixjl=535) 3.47 M/ L 4.20-5.80 HEMOGLOBIN (BEAKER) (test ptyj=791) 10.4 GM/DL 13.0-16.8 HEMATOCRIT (BEAKER) (test nkrw=880) 30.7 % 40.0-50.0 MEAN CORPUSCULAR VOLUME (BEAKER) (test rrxo=823) 88.4 fL 82.0-98.0 MEAN CORPUSCULAR HEMOGLOBIN (BEAKER) (test zdpx=709) 30.0 pg 27.0-33.0 MEAN CORPUSCULAR HEMOGLOBIN CONC (BEAKER) (test zehv=492) 33.9 GM/DL 32.0-36.0 RED CELL DISTRIBUTION WIDTH (BEAKER) (test epdm=433) 15.5 % 10.3-14.2 PLATELET COUNT (BEAKER) (test iums=602) 364 K/CU MM 150-430 MEAN PLATELET VOLUME (BEAKER) (test haah=622) 7.1 fL 6.5-10.5 NUCLEATED RED BLOOD CELLS (BEAKER) (test woxo=544) 0 /100 WBC 0-0 NEUTROPHILS RELATIVE PERCENT (BEAKER) (test mwaz=730) 76 % LYMPHOCYTES RELATIVE PERCENT (BEAKER) (test sost=246) 15 % MONOCYTES RELATIVE PERCENT (BEAKER) (test psfp=590) 8 % EOSINOPHILS RELATIVE PERCENT (BEAKER) (test dwbj=816) 1 % BASOPHILS RELATIVE PERCENT (BEAKER) (test vupb=034) 0 % NEUTROPHILS ABSOLUTE COUNT (BEAKER) (test ifet=001) 8.98 K/ L 1.80-8.00 LYMPHOCYTES ABSOLUTE COUNT (BEAKER) (test fevl=243) 1.72 K/ L 1.48-4.50 MONOCYTES ABSOLUTE COUNT (BEAKER) (test ywqy=191) 0.99 K/ L 0.00-1.30 EOSINOPHILS ABSOLUTE COUNT (BEAKER) (test bgfp=327) 0.11 K/ L 0.00-0.50 BASOPHILS ABSOLUTE COUNT (BEAKER) (test lpow=988) 0.03 K/ L 0.00-0.20 0.00POCT-GLUCOSE [id number] 21:31:00* Test Item Value Reference Range Comments POC-GLUCOSE METER (BEAKER) (test ifoa=2573) 145 mg/dL 70-110 TESTED AT [address] [address] POCT-GLUCOSE [id number] 17:23:00* Test Item Value Reference Range Comments POC-GLUCOSE METER (BEAKER) (test dqqu=6760) 105 mg/dL 70-110 TESTED AT [address] [address] [id number] 11:57:00* Test Item Value Reference Range Comments ACTIVATED CLOTTING TIME (BEAKER) (test uqud=699) 224 sec TESTED AT [address] [address] [id number] 11:57:00* Test Item Value Reference Range Comments ACTIVATED CLOTTING TIME (BEAKER) (test bhkr=311) 197 sec TESTED AT [facility] [address] [facility] [address] GLUCOSE-STAT [id number] 10:48:00* Test Item Value Reference Range Comments GLUCOSE RANDOM (BEAKER) (test lggq=703) 102 mg/dL 70-110 POTASSIUM-STAT [id number] 10:48:00* Test Item Value Reference Range Comments POTASSIUM (BEAKER) (test gfke=333) 3.8 meq/L 3.6-5.5 BLOOD GAS, [id number] 10:48:00* Test Item Value Reference Range Comments PH ARTERIAL (BEAKER) (test tguy=779) 7.36 7.35-7.45 PCO2 ARTERIAL (BEAKER) (test dneg=339) 38 mmHg 35-45 PO2 ARTERIAL (BEAKER) (test tgka=773) 266 mmHg 80-90 O2 SATURATION ARTERIAL (BEAKER) (test tinc=095) 99.6 % 96.0-97.0 HCO3 ARTERIAL (BEAKER) (test xtmy=942) 21 mmol/L 21-29 BASE EXCESS ARTERIAL (BEAKER) (test bbth=231) -4.4 mmol/L -2.0-3.0 PATIENT TEMPERATURE (BEAKER) (test kwgf=9904) 36.8 C FIO2 (BEAKER) (test xycn=1416) 57.0 % SODIUM NA-STAT [id number] 10:48:00* Test Item Value Reference Range Comments SODIUM (BEAKER) (test bvtt=203) 132 meq/L 135-148 HGB/HCT (H&H) - STAT [id number] 10:48:00* Test Item Value Reference Range Comments HEMOGLOBIN (BEAKER) (test zdpd=252) 7.9 g/dL 13.0-16.8 HEMATOCRIT (BEAKER) (test wdgu=953) 23.0 % 40.0-50.0 GLUCOSE-STAT [id number] 10:05:00* Test Item Value Reference Range Comments GLUCOSE RANDOM (BEAKER) (test rvze=152) 92 mg/dL 70-110 SODIUM NA-STAT [id number] 10:05:00* Test Item Value Reference Range Comments SODIUM (BEAKER) (test xlgc=849) 136 meq/L 135-148 POTASSIUM-STAT [id number] 10:05:00* Test Item Value Reference Range Comments POTASSIUM (BEAKER) (test vlmw=918) 3.8 meq/L 3.6-5.5 BLOOD GAS, [id number] 10:05:00* Test Item Value Reference Range Comments PH ARTERIAL (BEAKER) (test fcep=891) 7.39 7.35-7.45 PCO2 ARTERIAL (BEAKER) (test ldwu=977) 38 mmHg 35-45 PO2 ARTERIAL (BEAKER) (test hwrf=685) 268 mmHg 80-90 O2 SATURATION ARTERIAL (BEAKER) (test wvri=075) 99.6 % 96.0-97.0 HCO3 ARTERIAL (BEAKER) (test uiss=640) 22 mmol/L 21-29 BASE EXCESS ARTERIAL (BEAKER) (test jykw=882) -2.6 mmol/L -2.0-3.0 PATIENT TEMPERATURE (BEAKER) (test pzbq=5480) 36.5 C FIO2 (BEAKER) (test olib=8220) 50.0 % HGB/HCT (H&H) - STAT [id number] 10:05:00* Test Item Value Reference Range Comments HEMOGLOBIN (BEAKER) (test zdng=603) 7.7 g/dL 13.0-16.8 HEMATOCRIT (BEAKER) (test xbec=332) 23.0 % 40.0-50.0 POCT-GLUCOSE [id number] 06:48:00* Test Item Value Reference Range Comments POC-GLUCOSE METER (BEAKER) (test jfll=6787) 89 mg/dL 70-110 TESTED AT [address] [address] CBC W/PLT COUNT & AUTO [id number] 06:16:00* Test Item Value Reference Range Comments WHITE BLOOD CELL COUNT (BEAKER) (test nxlj=081) 13.1 K/ L 4.0-10.0 RED BLOOD CELL COUNT (BEAKER) (test kxyc=355) 3.53 M/ L 4.20-5.80 HEMOGLOBIN (BEAKER) (test gvjs=361) 10.3 GM/DL 13.0-16.8 HEMATOCRIT (BEAKER) (test vfdw=373) 30.9 % 40.0-50.0 MEAN CORPUSCULAR VOLUME (BEAKER) (test brje=313) 87.7 fL 82.0-98.0 MEAN CORPUSCULAR HEMOGLOBIN (BEAKER) (test gfsx=128) 29.1 pg 27.0-33.0 MEAN CORPUSCULAR HEMOGLOBIN CONC (BEAKER) (test gzco=229) 33.2 GM/DL 32.0-36.0 RED CELL DISTRIBUTION WIDTH (BEAKER) (test jmnz=893) 16.0 % 10.3-14.2 PLATELET COUNT (BEAKER) (test jhdt=072) 497 K/CU MM 150-430 MEAN PLATELET VOLUME (BEAKER) (test fzss=005) 7.2 fL 6.5-10.5 NUCLEATED RED BLOOD CELLS (BEAKER) (test qxua=676) 0 /100 WBC 0-0 NEUTROPHILS RELATIVE PERCENT (BEAKER) (test pzqz=143) 78 % LYMPHOCYTES RELATIVE PERCENT (BEAKER) (test sjoj=399) 15 % MONOCYTES RELATIVE PERCENT (BEAKER) (test yxww=085) 6 % EOSINOPHILS RELATIVE PERCENT (BEAKER) (test qccm=110) 1 % BASOPHILS RELATIVE PERCENT (BEAKER) (test unzs=659) 0 % NEUTROPHILS ABSOLUTE COUNT (BEAKER) (test vpuq=372) 10.20 K/ L 1.80-8.00 LYMPHOCYTES ABSOLUTE COUNT (BEAKER) (test orfs=648) 1.98 K/ L 1.48-4.50 MONOCYTES ABSOLUTE COUNT (BEAKER) (test gnwk=896) 0.73 K/ L 0.00-1.30 EOSINOPHILS ABSOLUTE COUNT (BEAKER) (test gits=599) 0.14 K/ L 0.00-0.50 BASOPHILS ABSOLUTE COUNT (BEAKER) (test uewc=259) 0.04 K/ L 0.00-0.20 0.00BASI METABOLIC [id number] 05:57:00* Test Item Value Reference Range Comments SODIUM (BEAKER) (test ykxe=459) 136 meq/L 136-145 POTASSIUM (BEAKER) (test jwsi=911) 4.1 meq/L 3.5-5.1 CHLORIDE (BEAKER) (test olvx=219) 98 meq/L 98-107 CO2 (BEAKER) (test neog=863) 24 meq/L 22-29 BLOOD UREA NITROGEN (BEAKER) (test jpxz=829) 21 mg/dL 7-21 CREATININE (BEAKER) (test tqvs=154) 1.23 mg/dL 0.57-1.25 GLUCOSE RANDOM (BEAKER) (test qixo=370) 99 mg/dL 70-105 CALCIUM (BEAKER) (test apzz=731) 9.3 mg/dL 8.4-10.2 EGFR (BEAKER) (test prgd=0282) 60 mL/min/1.73 sq m ESTIMATED GFR IS NOT ACCURATE CREATININE CLEARANCE IN PREDICTING GLOMERULAR FILTRATION RATE. ESTIMATED GFR IS NOT APPLICABLE FOR DIALYSIS PATIENTS. POCT-GLUCOSE [id number] 21:32:00* Test Item Value Reference Range Comments POC-GLUCOSE METER (BEAKER) (test bulp=0798) 86 mg/dL 70-110 TESTED AT [address] [address] POCT-GLUCOSE [id number] 17:02:00* Test Item Value Reference Range Comments POC-GLUCOSE METER (BEAKER) (test kwjp=4281) 129 mg/dL 70-110 TESTED AT [address] [address] POCT-GLUCOSE [id number] 12:45:00* Test Item Value Reference Range Comments POC-GLUCOSE METER (BEAKER) (test tspt=3432) 122 mg/dL 70-110 TESTED AT [address] [address] SEDIMENTATION [id number] 11:18:00* Test Item Value Reference Range Comments SEDIMENTATION RATE, ERYTHROCYTE (BEAKER) (test pnlf=921) 112 mm/HR 0-20 HEMOGLOBIN [id number] 08:50:00* Test Item Value Reference Range Comments HEMOGLOBIN A1C (BEAKER) (test pnbe=246) 9.1 % 4.3-6.1 POCT-GLUCOSE [id number] 07:50:00* Test Item Value Reference Range Comments POC-GLUCOSE METER (BEAKER) (test loia=3262) 92 mg/dL 70-110 TESTED AT [address] [address] BASIC METABOLIC [id number] 06:26:00* Test Item Value Reference Range Comments SODIUM (BEAKER) (test vfxe=068) 135 meq/L 136-145 POTASSIUM (BEAKER) (test hnop=279) 4.0 meq/L 3.5-5.1 CHLORIDE (BEAKER) (test gemt=658) 102 meq/L 98-107 CO2 (BEAKER) (test uvun=195) 23 meq/L 22-29 BLOOD UREA NITROGEN (BEAKER) (test lnmd=618) 17 mg/dL 7-21 CREATININE (BEAKER) (test nvpc=504) 0.86 mg/dL 0.57-1.25 GLUCOSE RANDOM (BEAKER) (test zxod=865) 91 mg/dL 70-105 CALCIUM (BEAKER) (test nwvs=855) 8.6 mg/dL 8.4-10.2 EGFR (BEAKER) (test cofg=2289) 91 mL/min/1.73 sq m ESTIMATED GFR IS NOT ACCURATE CREATININE CLEARANCE IN PREDICTING GLOMERULAR FILTRATION RATE. ESTIMATED GFR IS NOT APPLICABLE FOR DIALYSIS PATIENTS. B-TYPE NATRIURETIC FACTOR (BNP)2016-10-26 06:25:00* Test Item Value Reference Range Comments B-TYPE NATRIURETIC PEPTIDE (BEAKER) (test jviw=313) 540 pg/mL 0-100 CBC W/PLT COUNT & AUTO [id number] 06:19:00* Test Item Value Reference Range Comments WHITE BLOOD CELL COUNT (BEAKER) (test xcui=911) 13.0 K/ L 4.0-10.0 RED BLOOD CELL COUNT (BEAKER) (test qmpd=505) 3.37 M/ L 4.20-5.80 HEMOGLOBIN (BEAKER) (test likv=010) 9.5 GM/DL 13.0-16.8 HEMATOCRIT (BEAKER) (test qkai=711) 29.8 % 40.0-50.0 MEAN CORPUSCULAR VOLUME (BEAKER) (test ypvl=825) 88.6 fL 82.0-98.0 MEAN CORPUSCULAR HEMOGLOBIN (BEAKER) (test fwdy=814) 28.3 pg 27.0-33.0 MEAN CORPUSCULAR HEMOGLOBIN CONC (BEAKER) (test ucbn=611) 31.9 GM/DL 32.0-36.0 RED CELL DISTRIBUTION WIDTH (BEAKER) (test qhzu=243) 14.4 % 10.3-14.2 PLATELET COUNT (BEAKER) (test qufn=525) 405 K/CU MM 150-430 MEAN PLATELET VOLUME (BEAKER) (test gicq=792) 7.0 fL 6.5-10.5 NUCLEATED RED BLOOD CELLS (BEAKER) (test lpuh=841) 0 /100 WBC 0-0 NEUTROPHILS RELATIVE PERCENT (BEAKER) (test dnvt=701) 79 % LYMPHOCYTES RELATIVE PERCENT (BEAKER) (test xwpq=222) 15 % MONOCYTES RELATIVE PERCENT (BEAKER) (test mspy=539) 5 % EOSINOPHILS RELATIVE PERCENT (BEAKER) (test mblw=142) 1 % BASOPHILS RELATIVE PERCENT (BEAKER) (test seon=987) 0 % NEUTROPHILS ABSOLUTE COUNT (BEAKER) (test qzmy=542) 10.30 K/ L 1.80-8.00 LYMPHOCYTES ABSOLUTE COUNT (BEAKER) (test fbrq=044) 1.97 K/ L 1.48-4.50 MONOCYTES ABSOLUTE COUNT (BEAKER) (test jupq=724) 0.62 K/ L 0.00-1.30 EOSINOPHILS ABSOLUTE COUNT (BEAKER) (test oiqv=795) 0.11 K/ L 0.00-0.50 BASOPHILS ABSOLUTE COUNT (BEAKER) (test zjqd=033) 0.01 K/ L 0.00-0.20 0.00PROTHROMBIN [id number] 06:01:00* Test Item Value Reference Range Comments PROTIME (BEAKER) (test mcgu=062) 15.3 seconds 11.7-14.7 INR (BEAKER) (test qwlh=261) 1.2 <=5.9 RECOMMENDED COUMADIN/WARFARIN INR THERAPY RANGESSTANDARD DOSE: 2.0 - 3.0 Inclu elder: PROPHYLAXIS for venous thrombosis, systemic embolization; TREATMENT for harshad ous thrombosis and/or pulmonary embolus.HIGH RISK: Target INR is 2.5-3.5 for pat ients with mechanical heart valves.POCT-GLUCOSE [id number] 21:08:00* Test Item Value Reference Range Comments POC-GLUCOSE METER (BEAKER) (test tnbv=4997) 167 mg/dL 70-110 TESTED AT [facility] [address] [facility] [address] C-REACTIVE [id number] 19:21:00* Test Item Value Reference Range Comments C-REACTIVE PROTEIN (BEAKER) (test pqxx=208) 24.47 mg/dL 0.00-0.50 POCT-GLUCOSE [id number] 17:35:00* Test Item Value Reference Range Comments POC-GLUCOSE METER (BEAKER) (test gtxu=2317) 172 mg/dL 70-110 TESTED AT [facility] [address] [facility] [address] BASIC METABOLIC [id number] 16:12:00* Test Item Value Reference Range Comments SODIUM (BEAKER) (test lhue=433) 133 meq/L 136-145 POTASSIUM (BEAKER) (test nhdy=850) 4.0 meq/L 3.5-5.1 CHLORIDE (BEAKER) (test dzpw=336) 97 meq/L 98-107 CO2 (BEAKER) (test fyhi=432) 24 meq/L 22-29 BLOOD UREA NITROGEN (BEAKER) (test pewi=575) 16 mg/dL 7-21 CREATININE (BEAKER) (test hyvh=412) 1.01 mg/dL 0.57-1.25 GLUCOSE RANDOM (BEAKER) (test lovg=421) 216 mg/dL 70-105 CALCIUM (BEAKER) (test cnfo=834) 9.2 mg/dL 8.4-10.2 EGFR (BEAKER) (test antb=6825) 76 mL/min/1.73 sq m ESTIMATED GFR IS NOT ACCURATE CREATININE CLEARANCE IN PREDICTING GLOMERULAR FILTRATION RATE. ESTIMATED GFR IS NOT APPLICABLE FOR DIALYSIS PATIENTS. PT/[id number] 15:49:00* Test Item Value Reference Range Comments PROTIME (BEAKER) (test yzav=309) 15.5 seconds 11.7-14.7 INR (BEAKER) (test rfws=919) 1.2 <=5.9 PARTIAL THROMBOPLASTIN TIME (BEAKER) (test phsi=412) 32.6 seconds 22.5-36.0 RECOMMENDED COUMADIN/WARFARIN INR THERAPY RANGESSTANDARD DOSE: 2.0 - 3.0 Inclu elder: PROPHYLAXIS for venous thrombosis, systemic embolization; TREATMENT for harshad ous thrombosis and/or pulmonary embolus.HIGH RISK: Target INR is 2.5-3.5 for pat ients with mechanical heart valves.CBC W/PLT COUNT & AUTO [id number] 15:48:00* Test Item Value Reference Range Comments WHITE BLOOD CELL COUNT (BEAKER) (test dvae=591) 19.4 K/ L 4.0-10.0 RED BLOOD CELL COUNT (BEAKER) (test bltw=782) 3.49 M/ L 4.20-5.80 HEMOGLOBIN (BEAKER) (test byyx=643) 10.1 GM/DL 13.0-16.8 HEMATOCRIT (BEAKER) (test jnvb=490) 30.7 % 40.0-50.0 MEAN CORPUSCULAR VOLUME (BEAKER) (test btqa=999) 88.1 fL 82.0-98.0 MEAN CORPUSCULAR HEMOGLOBIN (BEAKER) (test vxpi=540) 28.9 pg 27.0-33.0 MEAN CORPUSCULAR HEMOGLOBIN CONC (BEAKER) (test pzwn=252) 32.7 GM/DL 32.0-36.0 RED CELL DISTRIBUTION WIDTH (BEAKER) (test ppmv=957) 14.3 % 10.3-14.2 PLATELET COUNT (BEAKER) (test iizf=963) 447 K/CU MM 150-430 MEAN PLATELET VOLUME (BEAKER) (test yupm=434) 6.6 fL 6.5-10.5 NUCLEATED RED BLOOD CELLS (BEAKER) (test hdoq=103) 0 /100 WBC 0-0 NEUTROPHILS RELATIVE PERCENT (BEAKER) (test nbdz=208) 86 % LYMPHOCYTES RELATIVE PERCENT (BEAKER) (test xdtp=570) 8 % MONOCYTES RELATIVE PERCENT (BEAKER) (test ypjg=039) 5 % EOSINOPHILS RELATIVE PERCENT (BEAKER) (test apth=003) 0 % BASOPHILS RELATIVE PERCENT (BEAKER) (test invy=688) 0 % NEUTROPHILS ABSOLUTE COUNT (BEAKER) (test icqk=359) 16.70 K/ L 1.80-8.00 LYMPHOCYTES ABSOLUTE COUNT (BEAKER) (test jmgu=524) 1.64 K/ L 1.48-4.50 MONOCYTES ABSOLUTE COUNT (BEAKER) (test sjhx=104) 1.03 K/ L 0.00-1.30 EOSINOPHILS ABSOLUTE COUNT (BEAKER) (test gqef=300) 0.04 K/ L 0.00-0.50 BASOPHILS ABSOLUTE COUNT (BEAKER) (test cwuv=707) 0.03 K/ L 0.00-0.20 0.00
[2018-08-21] MEDS ORDERED: JANUVIA100 MG PO (17:21)
[2018-08-21] MEDS ORDERED: LYRICA75 MG (17:22)
[2018-08-21] MEDS ORDERED: SOD POLYSTYRENE SULFONATE SUSP 15 GM/60 ML BTL ONE (17:59)
[2018-08-21] MEDS ORDERED: SOD POLYSTYRENE SULFONATE SUSP 15 GM/60 ML BTL PO ONE (18:00)
[2018-08-21] MEDS ORDERED: SODIUM CHLORIDE 0.9% 1000ML 1,000 ML IV SCH ×2 (18:00→19:59)
--- NOTE | 2018-08-21 19:00 | NUR ---
REPORT FROM TUYET HOWARD; PT UPDATED ON PLAN OF CARE - WAITING FOR DAUGHTER TO RETURN WITH COLOSTOMY SUPPLIES TO GIVE PT MEDICATION;
[2018-08-21] MEDS ORDERED: DEXTROSE 50% SYRINGE 50 ML IV PRN (20:00)
[2018-08-21] MEDS ORDERED: MORPHINE SULFATE 2 MG/ML SYR 1ML IV PRN (20:00)
[2018-08-21] MEDS ORDERED: ONDANSETRON HCL INJ 2MG/ML 2ML 2 MG/ML VIAL IV PRN (20:00)
--- NOTE | 2018-08-21 20:00 | NUR ---
PT GIVEN KAYEXELATE FOR POTASSIUM; PT CHANGING COLOSTOMY AND WILL TAKE AFTER; PT UPDATED THAT WE ARE WAITING FOR MD TO CALL BACK FOR ADMISSION; PT VERBALIZES UPDERSTANDING
--- OUTSIDE RECORDS SUMMARY | 2018-08-21 20:34 | XMS REPORT | Clinical Summary ---
Author Author STACY [facility] Address Unknown Phone Unavailable Care Team Providers Care Entry Level Electrical Engineer Name Role Phone Zhao Sanabria PCP Unavailable [...] Lot Implanted Type Area Manufactur er 08/06/2017 [id number] / / [id number] Device Clsr Angio-Seal Vip 6fr Cardiovasc Left: Groin ST JOSE [id number] - [id number] ular MED:CARDIA Implanted: Qty: 1 on 10/31/2016 by Magali Apodaca MD 01/06/2017 [id number] / / [id number] Adhesion Barrier,Seprafilm 5x6 - Cement/Terrance N/A: Abdomen GENZYME [id number] ler/Adhesi SURGICAL Implanted: Qty: 2 on 11/24/2014 by ve Bradford Luna MD 09/06/2016 [id number] / / [id number] Hemostat Vitagel Agent Surg - Cement/Terrance N/A: Abdomen [place] [id number] ler/Adhesi Orthopaedi Implanted: Qty: 1 on 04/13/2015 by Bradford Louis MD 02/14/2017 [id number] / / [id number] Promus Premier Stents-Cor Right: Coronary [place] Implanted: Qty: 1 on 03/29/2016 by Lida Chang MD 02/20/2017 [id number] / / [id number] Promus Premier Stents-Cor N/A: Coronary [place] Implanted: Qty: 1 on 03/29/2016 by Lida Chang MD 02/09/2017 [id number] / / [id number] Promus Premier Stents-Per Right: Coronary [place] Implanted: Qty: 1 on 03/29/2016 by Lida Link MD 12/06/2017 [id number] / / [id number] [place] [employer] Promus Premier Stents-Per [place] Implanted: Qty: 1 on 10/31/2016 by Magali Abrams MD 09/07/2021 [id number] / / [id number] Epifix Injectable 160mg [id number] - Tissue MIMEDX [id number] [employer] Implanted: Qty: 1 on 11/23/2016 by Satish Dupree MD 09/07/2021 [id number] / / [id number] Epifix Injectable 160mg Ei-5200 - Tissue MIMEDX [id number] [employer] Implanted: Qty: 1 on [...] ms QTC Calculatio n(Bazett) 475 ms P Osse[place] 44 degrees R Osseo 215 degrees T [place] 32 degrees Sinus tachycardi a Possible Left [...] ms QTC Calculatio n(Bazett) 467 ms P [place] 38 degrees R [place]se[place] 49 degrees T [place] 125 degrees Sinus rhythm with occasional Premature [...] ms QTC Calculatio n(Bazett) 439 ms P [place] 60 degrees R [place] 87 degrees T [place] 103 degrees Sinus tachycardi a with Fusion [...] 6:09 PM CDT) Creat, Fluid >37.00 mg/dL [facility] Specimen Body Fluid Narrative Performed At Reference Range:No Normals [facility] Assay performance has not been validated for this type of specimen. [facility] Please place ostomy bag over draining left flank wound and collect fluid until sufficient to send for Cr analysis. Thanks. Performing Organization Address City/State/Zipcode Phone Number [facility] [address] [place] [address] MEDICAL CENTER * Urinalysis w/Microscopic + Reflex to Culture (08/02/2018 5:01 PM CDT) Only the most recent of 3 results within the time period is included. Color, UA Yellow [facility] Clarity, UA Cloudy [facility] Specific [place], UA 1.017 1.001 - 1.035 [facility] pH, UA 7.0 5.0 - 8.0 [facility] Protein, UA 300 mg/dL (A) Negative [facility] Glucose, UA 70 mg/dL (A) Negative [facility] Ketones, UA Negative Negative [facility] Bilirubin, UA Negative Negative [facility] Blood, UA Moderate (A) Negative [facility] Nitrite, UA Negative Negative [facility] Leukocytes, UA Large (A) Negative [facility] Urobilinogen, UA 0.2 0.2 - 1.0 mg/dL [facility] RBC, UA 0 /HPF [facility] WBC, UA 1,216 /HPF [facility] Bacteria, UA Rare [facility] Mucus Occasional [facility] Squam Epithel, UA 2 /HPF [facility] Casts 18 /LPF [facility] Specimen Source [facility] Specimen Urine Performing Organization Address City/State/Zipcode Phone Number [facility] [address] [place] [address] MEDICAL CENTER * Urine culture (08/02/2018 5:01 PM CDT) Only the most recent of 3 results within the time period is included. Result PSEUDOMONAS AERUGINOSA (A) [facility] Result ERIC GLABRATA (A) [facility] Specimen Urine Antibiotic Method Susceptibility Organism Amikacin [...] aeruginosa Performing Organization Address City/State/Zipcode Phone Number [facility] [address] [place] [address] MEDICAL CENTER * CBC with platelet count + automated diff (08/02/2018 4:09 PM CDT) Only the most recent of 13 results within the time period is included. WBC 12.6 (H) 3.5 - 10.5 K/L [facility] RBC 4.30 (L) 4.63 - 6.08 M/L [facility] Hemoglobin 11.0 (L) 13.7 - 17.5 GM/DL [facility] Hematocrit 36.9 (L) 40.1 - 51.0 % [facility] MCV 85.8 79.0 - 92.2 fL [facility] MCH 25.6 (L) 25.7 - 32.2 pg [facility] MCHC 29.8 (L) 32.3 - 36.5 GM/DL [facility] RDW 16.4 (H) 11.6 - 14.4 % [facility] Platelets 491 (H) 150 - 450 K/CU MM [facility] MPV 9.6 9.4 - 12.4 fL [facility] nRBC 0 0 - 0 /100 WBC [facility] % Neutros 82 % [facility] % Lymphs 9 % [facility] % Monos 6 % [facility] % Eos 2 % [facility] % Baso 1 % [facility] # Neutros 10.33 (H) 1.78 - 5.38 K/L [facility] # Lymphs 1.13 (L) 1.32 - 3.57 K/L [facility] # Monos 0.76 0.30 - 0.82 K/L [facility] # Eos 0.24 0.04 - 0.54 K/L [facility] # Baso 0.06 0.01 - 0.08 K/L [facility] Immature 1 0 - 1 % [facility] Granulocytes-Relative [facility] Specimen Blood Performing Organization Address City/[facility]/Zipcode Phone Number [facility] [address] [place] [address] [facility] * Basic Metabolic Panel (08/02/2018 4:09 PM CDT) Only the most recent of 18 results within the time period is included. Sodium 136 136 - 145 meq/L [facility] Potassium 4.6 3.5 - 5.1 meq/L [facility] Chloride 111 (H) 98 - 107 meq/L [facility] CO2 17 (L) 22 - 29 meq/L [facility] BUN 25 (H) 7 - 21 mg/dL [facility] Creatinine 1.92 (H) 0.57 - 1.25 mg/dL [facility] Glucose 202 (H) 70 - 105 mg/dL [facility] Calcium 9.0 8.4 - 10.2 mg/dL [facility] EGFR 36Comment: ESTIMATED GFR IS mL/min/1.73 sq m [facility] NOT ACCURATE CREATININE [facility] CLEARANCE IN PREDICTING GLOMERULAR FILTRATION RATE. ESTIMATED GFR IS NOT APPLICABLE FOR DIALYSIS PATIENTS. Specimen Blood Performing Organization Address City/State/Zipcode Phone Number [facility] [address] [place] [address] MEDICAL CENTER * CT abdomen pelvis without contrast (08/02/2018 3:54 PM CDT) Specimen Narrative Performed At FINAL REPORT [employer] TECHNIQUE: CT of the abdomen and pelvis [...] MD Report Verified Date/Time:08/02/2018 16:44:39 Reading Location: [facility] C013Y CT Body Reading Room Procedure Note [...] Report Verified Date/Time: 08/02/2018 16:44:39 Reading Location: [facility] C013Y CT Body Reading Room Performing Organization Address City/State/[facility] Phone Number GE RIS * RHYTHM STRIP [...] (H)Comment: TESTED AT 70 - 110 mg/dL [address] [address] Specimen Blood Performing Organization Address [facility] Phone Number [address] [phone] [facility] * TRANSFUSION SERVICE REPORT - SCAN (07/22/2018 6:00 PM CDT) Only the most recent of 4 results within the time period is included. Narrative Performed At * Magnesium (07/22/2018 4:03 AM CDT) Only the most recent of 16 results within the time period is included. Magnesium 1.4 (L) 1.6 - 2.6 mg/dL [facility] Specimen Blood Performing Organization Address [facility] Cent[facility]ode Phone Number [address] [address] [facility] * Prepare Leuko-Red RBC (07/21/2018 11:54 PM CDT) Only the most recent of 2 results within the time period is included. Unit ABO B Pos [place]AF[place] UNIT NUMBER [id number] [place]AFET[place]ACE [place] Status TX_TIMEINCHART [facility] [place] Blood Bank Product RED BLOOD CELLS [place]AFET[place]ACE [place] PRODUCT CODE [id number] SAFETRACE TX Unit ABO B Pos SAFETRACE TX UNIT NUMBER [id number] SAFETRACE TX Status TX_TIMEINCHART SAFETRACE TX Blood Bank Product RED BLOOD CELLS [place] PRODUCT CODE [id number] [place]ET[place] CROSSMATCH COMPATIBLE [place] TX CROSSMATCH COMPATIBLE S[place] Specimen Other Performing Organization Address [facility] Phone Number [place] * Transfuse Leuko-Red RBC (07/21/2018 2:55 AM CDT) Only the most recent of 5 results within the time period is included. * Type and screen, automated (07/20/2018 12:30 PM CDT) Only the most recent of 2 results within the time period is included. Ab Scrn NEGATIVE [facility] Specimen Blood Performing Organization Address [facility] Centercofl Phone Number [address] [address] [facility] * ABORH, manual (07/20/2018 12:30 PM CDT) ABO Grouping B [facility] Rh Factor POS [facility] Specimen Blood Performing Organization Address [facility] Phone Number [address] [address] [facility] [place] * Troponin I (07/20/2018 1:30 AM CDT) Only the most recent of 11 results within the time period is included. Troponin I 0.19 (H) 0.00 - 0.03 ng/mL [facility] Specimen Blood Narrative Performed At Troponin I (TnI) levels must be interpreted in the context of the presenting [facility] symptoms and the clinical findings. Elevated TnI levels indicate myocardial [facility] damage, but are not specific for ischemic heart disease. Elevated TnI levels are seen in patients with other cardiac conditions (including myocarditis and congestive heart failure), and slight TnI elevations occur in patients with other conditions, including sepsis, renal failure, acidosis, acute neurological disease, and persistent tachyarrhythmia. Performing Organization Address City/[facility] Centercode Phone Number [address] [address] [phone] [place] [address] * PT/aPTT (07/19/2018 5:48 AM CDT) Only the most recent of 2 results within the time period is included. Protime 16.8 (H) 11.7 - 14.7 seconds [facility] INR 1.4 <=5.9 [facility] PTT 28.5 22.5 - 36.0 seconds [facility] Specimen Blood Narrative Performed At RECOMMENDED COUMADIN/WARFARIN INR THERAPY RANGES [facility] STANDARD DOSE: 2.0 - 3.0 Includes: PROPHYLAXIS for venous thrombosis, [facility] systemic embolization; TREATMENT for venous thrombosis and/or pulmonary embolus. HIGH RISK: Target INR is 2.5-3.5 for patients with mechanical heart valves. Performing Organization Address [facility] [place] [address] [phone] [place] [address] * Lactic acid, venous (07/19/2018 5:48 AM CDT) Only the most recent of 4 results within the time period is included. Lactate, Venous 1.5Comment: Specimen 0.5 - 2.2 mmol/L [facility] moderately hemolyzed [facility] Specimen Blood Performing Organization Address [facility] Centerc[place] [address] [phone] [place] [address] * Hepatic function panel (07/19/2018 5:48 AM CDT) Only the most recent of 2 results within the time period is included. Protein, Total 8.5 (H) 6.0 - 8.3 gm/dL [facility] Albumin 3.2 (L) 3.5 - 5.0 g/dL [facility] Total Bilirubin 0.5 0.2 - 1.2 mg/dL [facility] Bilirubin, Direct 0.3 0.1 - 0.5 mg/dL [facility] Alkaline Phosphatase 87 40 - 150 U/L [facility] AST 26 5 - 34 U/L [facility] ALT 9 6 - 55 U/L [facility] Specimen Blood Performing Organization Address City/[facility]/Zipcode Phone Number [facility] [address] [place] [address] [facility] * ECG 12 lead (07/18/2018 5:23 PM CDT) Only the most recent of 6 results within the time period is included. Specimen Narrative Performed At Ventricular Rate 94 BPM GE MUSE Atrial Rate 94 BPM P-R Interval 194 ms QRS Duration 104 ms Q-T Interval 378 ms QTC Calculation(Bazett) 472 ms P Osseo 46 degrees R Osseo 83 degrees T [place] 134 degrees Normal sinus rhythm Poor R wave progression ST & T wave abnormality, consider lateral ischemia Abnormal ECG Confirmed by MD BAIG JORGE ([id number]) on 07/19/2018 2:35:22 PM Procedure Note Interface, External Ris In - 07/19/2018 2:35 PM CDT Ventricular Rate 94 BPM Atrial Rate 94 BPM P-R Interval 194 ms QRS Duration 104 ms Q-T Interval 378 ms QTC Calculation(Bazett) 472 ms P Osse[place] 46 degrees R [place]se[place] 83 degrees T [place] 134 degrees Normal sinus rhythm Poor R wave progression ST & T wave abnormality, consider lateral ischemia Abnormal ECG Confirmed by MD BAIG JORGE ([id number]) on 07/19/2018 2:35:22 PM Performing Organization Address City/[facility] Centercode Phone Number [employer] * XR chest 1 view portable / bedside (07/18/2018 5:10 PM CDT) Only the most recent of 3 results within the time period is included. Specimen Narrative Performed At FINAL REPORT [employer]. AP chest HISTORY: Fever COMPARISON: 07/04/2017, 06/29/2017 IMPRESSION: Right chest port. Heart size upper limits of normal. Left lung clear. Faint opacity in the right lung base concerning for pneumonia or asymmetric edema. No effusion or pneumothorax. Signed: Vinod Hall MD Report Verified Date/Time:07/18/2018 17:18:20 Reading Location: [address] Radiology Reading Room Procedure Note Interface, [...] Report Verified Date/Time: 07/18/2018 17:18:20 Reading Location: [address] Radiology Reading Room Performing Organization Address City/[facility] Cent[facility] Phone Number [facility] * POC-Lactic Acid, Venous (07/18/2018 4:53 PM CDT) Only the most recent of 2 results within the time period is included. POC-Lactic Acid, Venous 2.0 (H)Comment: TESTED AT 0.9 - 1.7 mmol/L [address] [address] Specimen Blood Performing Organization Address City/[facility]/Zipcode Phone Number [address] [address] [facility] * Clostridium difficile [facility] Toxin (07/18/2018 4:44 PM CDT) Only the most recent of 2 results within the time period is included. C. Difficle Toxin Negative Negative [facility] C. Difficile G[facility] Antigen NegativeComment: No indication Negative [facility] of Clostridium difficile [facility] infection and no colonization. Discontinue enteric isolation and therapy. Specimen Stool Narrative Performed At Testing performed by [employer] Rapid Cassette Assay.For GDH, published [facility] sensitivity of the assay is 98.7% compared to cytotoxicity testing.For Toxin [facility] AB, published sensitivity is 87.8% and specificity 99.4% compared to cytotoxicity testing. Verification of kit performance was done by the [facility] Microbiology Lab prior to clinical use. Performing Organization Address City/[facility]/Zipcode Phone Number [address] * STOOL PATH CHARGE (07/18/2018 4:44 PM CDT) Pathogen exam charged Done [facility] Specimen Stool Performing Organization Address [facility] Centerc[facility] Phone Number [address] * Shiga Toxin Screen (07/18/2018 4:44 PM CDT) Shiga toxin 1 Not detected Not detected [facility] Shiga toxin 2 Not detected Not detected [facility] Specimen Stool Performing Organization Address City/[facility] Centercode Phone Number [address] * Stool culture + Shiga toxin+Salmonella+Campylobacter (07/18/2018 4:44 PM CDT) Result No Salmonella, Shigella or [facility] Campylobacter isolated [facility] Specimen Stool Performing Organization Address City/[facility] Centercode Phone Number [address] * Blood Culture - Routine (Left Venipuncture) (07/18/2018 4:38 PM CDT) Only the most recent of 6 results within the time period is included. Result No growth in 5 days [facility] Specimen Blood Performing Organization Address City/[facility]/Zipcode Phone Number [place] [phone] [place] [address] * Rapid Influenza A&B Screen (07/18/2018 4:38 PM CDT) Rapid Influenza A Antigen NEGATIVE LABORATORY FINDING Negative, Inconclusive [facility] Rapid influenza B Antigen NEGATIVE LABORATORY FINDING Negative, Inconclusive [facility] Specimen Nasal Performing Organization Address City/State/Zipcode Phone Number [facility] [address] [place] [address] MEDICAL CENTER * RESPIRATORY PANEL [facility] (07/18/2018 4:00 PM CDT) Human Metapneumovirus Not detected Not detected, Equivocal [facility] Rhinovirus Detected (A)Comment: Assay is Not detected, Equivocal [facility] not able differentiate between [facility] Human Rhinovirus and Enterovirus.Droplet isolation. Contact isolation if young infants. Consider stopping antibiotics. Influenza A Not detected Not detected, Equivocal [facility] INFLUENZA A (NO SUBTYPE) Not detected, Equivocal [facility] Influenza A subtype H1 Not detected, Equivocal [facility] Influenza A Subtype H3 Not detected, Equivocal [facility] Influenza A Subtype Not detected, Equivocal [facility] H1-2009 [facility] Influenza B Not detected Not detected, Equivocal [facility] Respiratory Syncytial Not detected Not detected, Equivocal [facility] Virus [facility] Parainfluenza Virus 1 Not detected Not detected, Equivocal [facility] Parainfluenza Virus 2 Not detected Not detected, Equivocal [facility] Parainfluenza virus 3 Not detected Not detected, Equivocal [facility] Parainfluenza Virus 4 Not detected Not detected, Equivocal [facility] Adenovirus Not detected Not detected, Equivocal [facility] Coronavirus 229E Not detected Not detected, Equivocal [facility] Coronavirus HKU1 Not detected Not detected, Equivocal [facility] Coronavirus NL63 Not detected Not detected, Equivocal [facility] Coronavirus OC43 Not detected Not detected, Equivocal [facility] Bordetella Pertussis Not detected Not detected, Equivocal [facility] Chlamydophila Pneumoniae Not detected Not detected, Equivocal [facility] Mycoplasma Pneumoniae Not detected Not detected, Equivocal [facility] Specimen Nasopharyngeal Narrative Performed At Other viruses and bacteria not targeted by this PCR panel cannot be excluded; [facility] therefore clinical correlation and follow up of serology, culture results, and [facility] other molecular studies is required. The results are not intended to be used as the sole means for clinical diagnosis or patient management decisions. This sample was tested at the [facility] Molecular Diagnostics Laboratory using the [employer] Respiratory Panel. It is FDA cleared and has been verified and approved by the [facility] Molecular Diagnostics Laboratory for clinical use on nasal swab specimens. It is not FDA-cleared for use on bronchial wash/lavage samples. However, for this sample type, validation was performed and test characteristics were determined and approved, by [facility] Molecular Diagnostics laboratory for clinical use under the Clinical Laboratory Improvement Amendments (CLIA) of 1988 requirements. Therefore, FDA clearance is not required.This laboratory is CLIA-certified and [employer] (CAP)-accredited to perform high complexity testing. Performing Organization Address City/[facility]/[place] [address] [phone] [place] [address] * Procalcitonin (07/18/2018 3:59 PM CDT) Only the most recent of 2 results within the time period is included. Procalcitonin 6.93 (H) <0.05 ng/mL [facility] Specimen Blood Narrative Performed At SEPSIS RISK (ng/mL) [facility] Low:0.05-0.50 [facility] Intermediate: 0.51-2.00 High: >=2.01 Performing Organization Address City/[facility] Centercode Phone Number [address] [address] [facility] * Prothrombin time/INR (07/18/2018 3:59 PM CDT) Protime 18.0 (H) 11.7 - 14.7 seconds [facility] INR 1.5 <=5.9 [facility] Specimen Blood Narrative Performed At RECOMMENDED COUMADIN/WARFARIN INR THERAPY RANGES [facility] STANDARD DOSE: 2.0 - 3.0 Includes: PROPHYLAXIS for venous thrombosis, [facility] systemic embolization; TREATMENT for venous thrombosis and/or pulmonary embolus. HIGH RISK: Target INR is 2.5-3.5 for patients with mechanical heart valves. Performing Organization Address City/[facility] Centercode Phone Number [facility] [address] [place] [address] [facility] * ECG/EKG Interpretation (07/18/2018 3:30 PM CDT) [...] Hemoglobin 9.2 (L) 13.7 - 17.5 GM/DL [facility] Hematocrit 29.7 (L) 40.1 - 51.0 % [facility] Specimen Blood Performing Organization Address City/[facility]/Zipcode Phone Number [facility] [address] [place] [address] [facility] * IR Nephrostogram thru Existing Access (07/05/2018 10:12 AM CDT) Specimen Narrative Performed At FINAL REPORT [facility] Nephrostogram with removal of left nephroureteral stent. History: History of urinary obstruction. Concern for infection. Request is for nephrostogram with removal of catheter if there is no evidence of obstruction.. Modality: Fluoroscopy Sedation: None Anesthesia:Two percent Lidocaine without epinephrine. Approach:Existing left percutaneous nephroureterostomy catheter Estimated blood loss:< 5 cc. Specimen: None. molasses and caramel operator: Jackson Hagen MD. Superintendent Of Generation: Genaro. Fluoroscopy Time: 0.9 min. Reference Air [...] MD Report Verified Date/Time:07/09/2018 19:03:49 Reading Location: [place] [address] Angio Body Reading Room Procedure Note Interface, [...] blood loss: < 5 cc. Specimen: None. molasses and caramel operator: Jackson Hagen MD. Superintendent Of Generation: Genaro. Fluoroscopy Time: 0.9 min. Reference Air [...] Report Verified Date/Time: 07/09/2018 19:03:49 Reading Location: [place] [address] Angio Body Reading Room Performing Organization Address City/State/Zipcode Phone Number [facility] * ECHOCARDIOGRAM REPORT - SCAN (07/04/2018 9:13 PM CDT) Narrative Performed At * 2D Echo W/Doppler(CW/PW/Color) (07/04/2018 1:41 AM CDT) Ejection Fraction [facility] ECHO [facility]ART[facility] Specimen Narrative Performed At Transthoracic Echocardiography Report (TTE) [facility]ART[facility] Demographics [facility] Patient Name BRADFORD DIAZ Date of Study 07/04/2018 ANGELA [id number] Male Visit Number [id number] Room Number 7305 Number Date of Birth1960Referring Physician Tirso Garcia Age58 year(s)Laboratory Director Renuka Hsu RDCS, RVT AnalystAlex Bella Nickerson [...] mid to apical inferior, inferolateral, apex . 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 The other segments are [...] mid to apical inferior, inferolateral, apex . 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 The other segments are [...] Study 07/04/2018 ANGELA Gender Male Visit Number [id number] Race Unknown Room Number 7305 Number Date of 1960 Referring Physician Tirso Garcia Age 58 year(s) Laboratory Director Renuka Hsu RD, RVT Cement Mixer Driver Elton Blanco Interpreting Elver Nickerson MD Physician [...] mid to apical inferior, inferolateral, apex . 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 The other segments are [...] mid to apical inferior, inferolateral, apex . 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 The other segments are [...] CDT) [place] MONOCYTOGENES Not detected Not detected [facility] STAPHYLOCOCCUS Not detected Not detected [facility] STAPHYLOCOCCUS AUREUS Not detected Not detected [facility] Streptococcus Not detected Not detected [facility] STREPTOCOCCUS AGALACTIAE Not detected Not detected [facility] ([facility]) [facility] STREPTOCOCCUS PNEUMONIAE Not detected Not detected [facility] Streptococcus pyogenes Not detected Not detected [facility] (Group A) [facility] ACINETOBACTER BAUMANNII Not detected Not detected [facility] HAEMOPHILUS INFLUENZAE Not detected Not detected [facility] NEISSERIA MENINGITIDIS Not detected Not detected [facility] ENTEROBACTERIACEAE Detected (A) Not detected [facility] ENTEROBACTER CLOACOE Not detected Not detected [facility] KLEBSIELLA OXYTOCA Not detected Not detected [facility] KLEBSIELLA PNEUMONIAE Detected (A) Not detected [facility] Comment: [facility] First line therapy: Meropenem. De-escalate based on susceptibilities This test does not evaluate for ESBL Reference Range: Not Detected PROTEUS Not detected Not detected [facility] SERRATIA MARCESCENS Not detected Not detected [facility] ERIC ALBICANS Not detected Not detected [facility] ERIC GLABRATA Not detected Not detected [facility] ERIC NGUYỄN Not detected Not detected [facility] ERIC PARAPSILOSIS Not detected Not detected [facility] ERIC TROPICALIS Not detected Not detected [facility] ESCHERICHIA COLI Not detected Not detected [facility] METHICILLIN-RESISTANCE Not detected [facility] VANCOMYCIN-RESISTANCE Not detected [facility] CARBAPENEM-RESISTANCE Not detected Not detected [facility] ENTEROCOCCUS Not detected Not detected [facility] PSEUDOMONAS AERUGINOSA Not detected Not detected [facility] Specimen Blood Narrative Performed At Other bacteria and resistance markers not targeted by this PCR panel cannot be [facility]; therefore clinical correlation and follow up of serology, culture [facility] results, and other molecular studies is required. The results are not intended to be used as the sole means for clinical diagnosis or patient management decisions. This sample was tested at the [facility] Molecular Diagnostics Laboratory using the Corhythm Blood Culture ID Panel. It is FDA cleared and has been verified and approved by the [facility] for clinical use. This laboratory is CLIA-certified and [employer] [place] (CAP)-accredited to perform high complexity testing. Performing Organization Address City/[facility] Cent[facility] Phone Number [facility] [address] [place] [address] [phone] [place] [address] * Prepare RBC (07/03/2018 11:54 PM CDT) Unit ABO B Pos SAFETRACE TX UNIT NUMBER [id number] SAFETRACE TX Status TX_TIMEINCHART SAFETRACE TX Blood Bank Product RED BLOOD CELLS SAFETRACE TX PRODUCT CODE [id number] SAFETRACE TX CROSSMATCH COMPATIBLE SAFETRACE TX Performing Organization Address [facility] Centercode Phone Number SAFETRACE [place] * Iron, TIBC, % sat. (without ferritin) (07/02/2018 5:21 AM CDT) Only the most recent of 2 results within the time period is included. Iron 14.0 (L) 40.0 - 160.0 ug/dL [facility] TIBC 171 (L) 250 - 450 ug/dL [facility] Iron % Saturation 8 (L) 20 - 55 % [facility] Specimen Blood Performing Organization Address City/[facility]/Zipcode Phone Number [facility] [address] [place] [address] [facility] * CBC (Hemogram only) (07/02/2018 5:21 AM CDT) Only the most recent of 3 results within the time period is included. WBC 8.0 3.5 - 10.5 K/L [facility] RBC 2.60 (L) 4.63 - 6.08 M/L [facility] Hemoglobin 6.8 (L) 13.7 - 17.5 GM/DL [facility] Hematocrit 22.1 (L) 40.1 - 51.0 % [facility] MCV 85.0 79.0 - 92.2 fL [facility] MCH 26.2 25.7 - 32.2 pg [facility] MCHC 30.8 (L) 32.3 - 36.5 GM/DL [facility] RDW 17.2 (H) 11.6 - 14.4 % [facility] Platelets 256 150 - 450 K/CU MM [facility] MPV 9.6 9.4 - 12.4 fL [facility] nRBC 0 0 - 0 /100 WBC [facility] Specimen Blood Performing Organization Address City/[facility]/Zipcode Phone Number [facility] [address] [place] [address] [facility] * Potassium (07/02/2018 5:21 AM CDT) Only the most recent of 16 results within the time period is included. Potassium 4.4 3.5 - 5.1 meq/L [facility] Specimen Blood Narrative Performed At Call me if > 5.5 [facility] Performing Organization Address City/State/Zipcode Phone Number [address] * Folate, Serum (07/02/2018 5:21 AM CDT) Folate 7.0 >=7.0 ng/mL [facility] Specimen Blood Performing Organization Address City/[facility] Centercode Phone Number [address] * Ferritin (07/02/2018 5:21 AM CDT) Only the most recent of 2 results within the time period is included. Ferritin 326 (H) 5 - 275 ng/mL [facility] Specimen Blood Performing Organization Address City/[facility] Centercode Phone Number [address] * Vitamin B12 (07/02/2018 5:21 AM CDT) Vitamin B12 266 213 - 816 pg/mL [facility] Specimen Blood Performing Organization Address [facility] Centercofl Phone Number [address] * Urinalysis w/Microscopic (07/01/2018 5:26 PM CDT) Color, UA Light Yellow [facility] Clarity, UA Hazy [facility] Specific [place], UA 1.009 1.001 - 1.035 [facility] pH, UA 7.5 5.0 - 8.0 [facility] Protein, UA 50 mg/dL (A) Negative [facility] Glucose, UA Negative Negative [facility] Ketones, UA Negative Negative [facility] Bilirubin, UA Negative Negative [facility] Blood, UA Small (A) Negative [facility] Nitrite, UA Positive (A) Negative [facility] Leukocytes, UA Large (A) Negative [facility] Urobilinogen, UA 0.2 0.2 - 1.0 mg/dL [facility] RBC, UA 15 /HPF [facility] WBC, UA 514 /HPF [facility] Bacteria, UA Few [facility] Specimen Source [facility] Specimen Urine Performing Organization Address City/State/Zipcode Phone Number [address] [address] [facility] * Phosphorus (07/01/2018 4:10 AM CDT) Only the most recent of 3 results within the time period is included. Phosphorus 3.2 2.3 - 4.7 mg/dL [facility] Specimen Blood Performing Organization Address City/State/Zipcode Phone Number [facility] [address] [place] [id number] [facility] * US renal complete (06/30/2018 11:00 PM CDT) Specimen Narrative Performed At FINAL REPORT [employer] Ultrasound of the Kidneys Clinical History:acute renal [...] MD Report Verified Date/Time:07/01/2018 04:44:25 Reading Location: [facility] C013Y CT Body Reading Room Procedure Note [...] Report Verified Date/Time: 07/01/2018 04:44:25 Reading Location: [facility] C013Y CT Body Reading Room Performing Organization [...] 10:44 PM CDT) Sodium Urine 45 meq/L [facility] Specimen Urine - Urine, Nephrostomy Narrative Performed At Reference Range: No Normals [facility] Performing Organization Address [facility] Centercofl Phone Number [address] * Creatinine, random urine (06/29/2018 10:44 PM CDT) Creatinine, Ur 43.3 mg/dL [facility] Specimen Urine - Urine, Nephrostomy Narrative Performed At Reference Range: No Normals [facility] Performing Organization Address [facility] Centercofl Phone Number [address] * Hepatitis B surface antigen (06/29/2018 5:26 PM CDT) hepatitis B Surface Ag NON-REACTIVE Nonreactive [facility] Specimen Blood Performing Organization Address [facility] Centercofl Phone Number [address] * Lactate dehydrogenase (LDH) (06/29/2018 5:26 PM CDT) LDH 242 (H)Comment: Specimen 125 - 220 U/L [facility] slightly hemolyzed [facility] Specimen Blood Performing Organization Address [facility] Centercofl Phone Number [address] * Creatine Kinase (CK) (06/29/2018 5:26 PM CDT) Total CK 60 29 - 200 U/L [facility] [place] Specimen Blood Performing Organization Address City/State/Zipcode Phone Number [facility] [address] [place] [address] [facility]ENTER * plasma potassium (9999) (06/29/2018 4:25 PM CDT) Scan Result [facility] Specimen Blood Narrative Performed At Performing Organization Address City/State/Zipcode Phone Number [facility] [address] [place], [place] * XR chest 2 views (06/28/2018 [...] MD Report Verified Date/Time:06/28/2018 22:10:22 Reading Location: [facility] C[facility] Body Reading Room Procedure Note Interface, [...] Report Verified Date/Time: 06/28/2018 22:10:22 Reading Location: [facility] C013Y CT Body Reading Room Performing Organization [...] my direction. Total intra-service time of sedation [id number]. The patient's vital signs were monitored throughout the procedure and recorded in the patient's medical record by the nurse. Sterile Processing Tech:Arvind Rendon MD Superintendent Of Generation:Bere Douglas (fellow). Approach: Right internal jugular vein [...] needle into the right atrium. A 4 [place] micropuncture sheath was placed a 0.035 wire was advanced into the IVC. A subcutaneous tunnel and pocket were created in the right anterior chest wall by blunt dissection.The pocket was flushed with antibiotic solution. A 6 [place] Bard single lumen power injectable port was [...] MD Report Verified Date/Time:10/26/2017 18:30:43 Reading Location: [place] [address] Angio Body Reading Room Procedure Note Interface, [...] the patient's medical record by the nurse. Sterile Processing Tech: Arvind Rendon MD Superintendent Of Generation: Bere Douglas (fellow). Approach: Right internal jugular [...] needle into the right atrium. A 4 [place] micropuncture sheath was placed a 0.035 wire was advanced into the IVC. A subcutaneous tunnel and pocket were created in the right anterior chest wall by blunt dissection. The pocket was flushed with antibiotic solution. A 6 [place] Bard single lumen power injectable port was [...] Report Verified Date/Time: 10/26/2017 18:30:43 Reading Location: [place] [address] Angio Body Reading Room Performing Organization Address City/State/Zipcode Phone Number [facility] * Platelet count (10/26/2017 6:28 AM CDT) Platelets 370 150 - 450 K/CU MM [facility] Specimen Blood Performing Organization Address City/State/Zipcode Phone Number [facility] [address] [place] [address] [facility] after 08/20/2017 Insurance Payer Benefit Subscriber ID Type Phone Address Plan / Group [facility] xxxxxxxxxxx MEDICARE ADV Advance Directives For more information, please contact: [facility] [address] [place] [address] Date Inactivated Comments Code Status [...]
--- NOTE | 2018-08-21 20:50 | NUR ---
PT COMPLAINS "IT IS TAKING TOO LONG" - PT INFORMED THAT HE HAS ROOM AND WILL BE TRASNFERRED SOON; PT UNDERSTANDS
[2018-08-21] MEDS ORDERED: INSULIN REGULAR, HUMAN 100 UNIT/1 ML 3ML VIAL SQ SCH (21:00)
--- NOTE | 2018-08-21 21:15 | NUR ---
WENT TO PT ROOM TO DO VITALS - PT NOT IN ROOM, PT LEFT WITH BELONGINGS; IV NOT FOUND IN ROOM; PER SALES & SERVICE ASSOCIATE, PT WENT OUTSIDE AND DID NOT COME BACK IN; PT CALLED VIA CONTACT INFO AND INFORMED IV NEEDS TO BE REMOVED; PT STATES "YOU TOOK TOO LONG SO I LEFT. I WILL BE BACK IN THE MORNING"
--- NOTE | 2018-08-21 21:30 | NUR ---
PT'S IV REMOVED. PT REFUSED TO SIGN AMA FORM
[2018-08-22] MEDS ORDERED: ASPIRIN 81 MG ENTERIC COATED PO SCH (09:00)
== END 2018-08-21 21:15 | disposition left against medical advice (07) ==
LOC: FSED 15:44 → UNDOADMOB 20:30 → IMCU 20:30 → FSED 21:15
DX: Z03.89 Encounter for observation for other suspected diseases and conditions ruled out (principal)
CPT/HCPCS: 80053; 85025; J1817; J2270; J2405; J7030

== ENCOUNTER 2018-10-02 13:41 | Emergency (ER) | payer MEDICARE ==
[~2018-10-02] VITALS: Ht 167.6 cm; Wt 64.9 kg
[~2018-10-02 13:41] MED LIST: JANUVIA100 MG PO; LYRICA75 MG
[2018-10-02] MEDS ORDERED: SODIUM CHLORIDE 0.9% 1000ML 1,000 ML IV SCH (14:15)
--- NOTE | 2018-10-02 14:35 | Diagnostic Imaging Report ---
EXAMINATION: PA and lateral views of the chest. COMPARISON: None CLINICAL HISTORY: Fever, fatigue, hyperglycemia, history of colon cancer DISCUSSION: Right internal jugular central venous port catheter tip lies at the superior cavoatrial junction. The lungs are well inflated and without focal consolidation, pleural effusion, or pneumothorax. Atherosclerotic calcification of the aortic arch. Normal heart size. No pulmonary edema. No acute osseous abnormality. IMPRESSION: No acute cardiopulmonary abnormalities. Signed by: Dr. Larry Jaime M.D. on 10/02/2018 2:31 PM
== END 2018-10-02 15:06 | disposition left against medical advice (07) ==
LOC: FSED 13:41
DX: D62 Acute posthemorrhagic anemia (principal); C18.9 Malignant neoplasm of colon, unspecified; E11.65 Type 2 diabetes mellitus with hyperglycemia; Z98.0 Intestinal bypass and anastomosis status; Z87.891 Personal history of nicotine dependence
CPT/HCPCS: 71046; 80048; 85025; 99283